=== PATIENT | male | born 1970 | race Caucasian/White ===

== ENCOUNTER → 2019-01-27 | Outpatient (CLI) | payer MEDICARE, BC ==
[~2019-01-27] MED LIST: CATA0.3T PO; CHOL50003 PO; CRES10TA PO; GLIP10TA PO; HM V5000 PO; INSUH10VL SQ; LEVE1INJ5 SQ; METO1TAB87 PO; MIDO5TA PO; RENA1TAB3 PO; SERT25TA85 PO
== END ==
LOC: M LAB 11:33
PROVIDERS: ATTEND Internal Medicine Nephrology
DX: D64.9 Anemia, unspecified (principal)

== ENCOUNTER 2019-01-29 08:51 | Outpatient (CLI) | payer MEDICARE, BC ==
[~2019-01-29] VITALS: Ht 190.5 cm; Wt 119.0 kg
[2019-01-29 09:05] VITALS: BP 168/82
[2019-01-29] MEDS ORDERED: ACETAMINOPHEN 325 MG TAB PO ONE (10:00)
[2019-01-29] MEDS ORDERED: SERT25TA85 PO (10:20)
[2019-01-29] MEDS ORDERED: MIDO5TA PO (10:20)
[2019-01-29] MEDS ORDERED: HM V5000 PO (10:20)
[2019-01-29] MEDS ORDERED: CHOL50003 PO (10:20)
[2019-01-29] MEDS ORDERED: METO1TAB87 PO (10:20)
[2019-01-29] MEDS ORDERED: LEVE1INJ5 SQ (10:20)
[2019-01-29] MEDS ORDERED: CATA0.3T PO (10:20)
[2019-01-29] MEDS ORDERED: INSUH10VL SQ (10:20)
[2019-01-29] MEDS ORDERED: CRES10TA PO (10:20)
[2019-01-29] MEDS ORDERED: RENA1TAB3 PO (10:20)
[2019-01-29] MEDS ORDERED: GLIP10TA PO (10:20)
== END 2019-01-29 12:55 | disposition home or self-care (01) ==
LOC: M INFU 08:51
PROVIDERS: ATTEND Internal Medicine Nephrology
DX: N18.9 Chronic kidney disease, unspecified (principal); D63.1 Anemia in chronic kidney disease; Z88.0 Allergy status to penicillin; Z88.1 Allergy status to other antibiotic agents
CPT/HCPCS: 36430; P9016

== ENCOUNTER → 2019-02-05 | Outpatient (REF) | payer MEDICARE, BC | LOC: M LAB REF 12:47 | PROVIDERS: ATTEND Internal Medicine Nephrology | DX: D50.9 Iron deficiency anemia, unspecified (principal); N18.6 End stage renal disease; Z79.4 Long term (current) use of insulin; Z79.899 Other long term (current) drug therapy ==

== ENCOUNTER 2019-05-23 17:48 | Inpatient (IN) | payer MEDICARE, BC ==
[~2019-05-23] VITALS: Ht 190.5 cm; Wt 122.9 kg
[~2019-05-23 17:48] MED LIST changes: +LEVE1INJ5 SC; -LEVE1INJ5 SQ
[2019-05-23] MEDS ORDERED: SERT25TA88 (18:00)
[2019-05-23] MEDS ORDERED: PANT40TA3 (18:00)
[2019-05-23] MEDS ORDERED: LOSA100T50 (18:00)
[2019-05-23] MEDS ORDERED: CRES10TA (18:00)
[2019-05-23] MEDS ORDERED: VELP5CHW PO ×2 (18:00→22:02)
[2019-05-23] MEDS ORDERED: VANC1PLA6 IV (20:42)
[2019-05-23] MEDS ORDERED: CEFEPIME HCL 1 GM in D5W MINI-BAG PLUS 50 ML IV ONE (21:00)
[2019-05-23] MEDS ORDERED: HumaLOG INSULIN (NovoLOG) PER UNIT SC SCH (21:00)
[2019-05-23] MEDS ORDERED: LEVEMIR (INSULIN DETEMIR) 1 UNITS/0.01ML SC SCH (21:00)
[2019-05-23 21:18] LABS: BASO % 0.3 % (0.0-1.0); EOS # 0.2 10^3/uL (0.0-0.5); EOS % 1.8 % (0.0-3.0); HEMATOCRIT 31.5 % (42.0-52.0); HEMOGLOBIN 10.7 g/dl (13.5-17.5); LYMPH # 2.6 10^3/uL (1.5-5.0); LYMPH % 21.1 % (24.0-44.0); MEAN CORPUSCULAR HEMOGLOBIN 31.8 pg (27.0-33.0); MEAN CORPUSCULAR VOLUME 93.5 fl (80.0-96.0); MONO # 1.2 10^3/uL (0.0-0.8); MONO % 9.8 % (0.0-5.0); NEUTROPHILS # 8.1 10^3/uL (1.5-8.5); NEUTROPHILS % 66.5 % (36.0-66.0); PLATELET COUNT, AUTOMATED 265 10^3/uL (150-450); RED BLOOD COUNT 3.37 10^6/uL (4.30-6.10); WHITE BLOOD COUNT 12.2 10^3/uL (4.0-10.0)
[2019-05-23 21:51] LABS: ALBUMIN 2.4 GM/DL (3.2-5.2); ALT/SGPT 16 U/L (12-78); BILIRUBIN,DIRECT 0.1 MG/DL (0.0-0.2); BILIRUBIN,TOTAL 0.3 MG/DL (0.2-1.0); BLOOD UREA NITROGEN 17 MG/DL (7-18); CALCIUM LEVEL 8.5 MG/DL (8.5-10.1); CARBON DIOXIDE LEVEL 34 MEQ/L (21-32); CHLORIDE LEVEL 100 MEQ/L (98-107); CREATININE FOR GFR 3.79 MG/DL (0.70-1.30); GLOMERULAR FILTRATION RATE 18.2 (>60); GLUCOSE, FASTING 135 MG/DL (70-100); POTASSIUM SERUM 3.8 MEQ/L (3.5-5.1); SODIUM LEVEL 140 MEQ/L (136-145); TOTAL PROTEIN 6.9 GM/DL (6.4-8.2)
[2019-05-23] MEDS ORDERED: CLON-412 PO (22:02)
[2019-05-23] MEDS ORDERED: LOSA100T50 PO (22:02)
[2019-05-23] MEDS ORDERED: VITA-172 PO (22:02)
[2019-05-23] MEDS ORDERED: PANT-23 PO (22:02)
[2019-05-23] MEDS ORDERED: INSUH10VL SC (22:02)
[2019-05-23] MEDS ORDERED: RENATAB5 PO (22:02)
--- NOTE | 2019-05-23 22:22 | HPEPDOC ---
[facility] Medical History & Physical Date of Admission May 23, 2019 Date of Service: May 23, 2019 Primary Care Physician: A Other Provider PCP Supa Floyd MD Attending Physician: ZORAIDA ASTORGA MD History and Physical TIME OF SERVICE: 9:30 PM CHIEF COMPLAINT: Sent from dialysis clinic History is obtained from the patient and his mother; his director of pediatric rehabilitation is at the bedside. HISTORY OF PRESENT ILLNESS: This is a 43 old man who was sent from his dialysis clinic for evaluation of left or finger discoloration. According to the patient, he developed a blister that was white at the left fourth finger. He didn't think much about it and started picking at it, but it got worse; about 1 month ago, the tip of the fourth finger turned black; he also developed redness and swelling of the left hand and left lower arm. He admits to having a bit of pain which he manages with Tylenol. He was started on vancomycin and received doses on Tuesday, Tuesday, and on Tuesday prior to arrival in the ED. Today his dialysis center sent him to the ED. He denies having fevers, denies chills, denies nausea, and denies vomiting. REVIEW OF SYSTEMS: 12 point review of systems negative except as listed in HPI PAST MEDICAL/ SURGICAL HISTORY: ESRD on dialysis Tuesday, Tuesday and Tuesday via AV fistula at the left wrist Hypertension. Type 2 diabetes SOCIAL HISTORY: Doesn't smoke. Doesn't drink alcohol FAMILY HISTORY: ALS. Smoke. Hypertension. Stroke/WI/vasculopathy ALLERGIES: Please see below. HOME MEDICATIONS: Please see below. PHYSICAL EXAMINATION: VITAL SIGNS: Please see below. GENERAL APPEARANCE: Well-nourished, well-developed, not in apparent distress, does not appear toxic HEENT: Normocephalic, atraumatic, mucous members moist and pink CARDIOVASCULAR: Regular rate and rhythm, no murmurs, rubs or gallops, AV fistula left wrist has a palpable thrill LUNGS: Clear to auscultation bilaterally on room air ABDOMEN: Soft and nontender on palpation MUSCULOSKELETAL: Range of motion intact in all 4 extremities INTEGUMENT: The lower aspect of the fourth finger on the left hand is completely black firm and necrotic in appearance; the rest of the finger is red and swollen. The redness and swelling extends to the dorsal and palmar aspect of his left hand but not up to the lower arm. NEUROLOGICAL: Cranial nerves II-12 except auditory intact./Patient is using director of pediatric rehabilitation to communicate PSYCHIATRIC: Alert and oriented, able to understand and follow commands LABORATORY DATA: See below. IMAGING: X-ray of the left hand shows necrosis of the fourth distal phalange on the left hand, the final report is pending MICROBIOLOGY: Please see below. ASSESSMENT: Mr. Lucia is a 43 male with a past medical history of ESRD, hypertension, and diabetes who will be admitted for management of osteomyelitis affecting the left fourth distal phalanx. PLAN: 1. Osteomyelitis /possible gangrene affecting the left affecting the left fourth distal phalanx. Predisposing factors include diabetes, fungal nail infection and blister that was previously present at the same finger The WBC count is elevated due to the infection. He received cefepime in the ED and 3 doses of vancomycin the last week Plan: Admit to PCU/follow-up blood cultures, ESR and CRP, and report of x-ray of the left hand/ nothing by mouth/general surgery consult to determine if needs amputation/c/w Vancomyin and Cefepime / the day time team can consider ID consult 2 Hypertensive urgency Plan: Resume home meds/add labetalol 5 mg every 4 hours when necessary along with hydralazine 10 mg every 8 hours scheduled / follow-up troponin, and EKG 3 ESRD. Plan: Is/ Os & daily weights /nephrology consult 4. Type 2 diabetes Plan: / f/u accuchecks & A1C / hypoglycemia protocol / sliding scale insulin / hold oral anti-glycemics / decrease Levemir from 32 units twice a day to 15 units twice a day pending surgical evaluation 5.Obesity BMI 33.7kg Plan: can f/u w PCP for national opelint analyst consult & STOP BANG questionnaire / recommend cardiovascular exercise for 40 min 4-5 days a week DVT prophylaxis with SCDs pending surgical evaluation. Disposition pending clinical course Vital Signs Vital Signs Date Time Temp Pulse Resp B/P (MAP) Pulse Ox O2 Delivery O2 Flow Rate FiO2 05/23/19 20:00 18 198/95 (129) 100 Room Air 05/23/19 17:48 98.8 80 Laboratory Data Labs 24H Laboratory Tests 2 05/23/19 20:59: Immature Granulocyte % (Auto) 0.5, White Blood Count 12.2H, Red Blood Count 3.37L, Hemoglobin 10.7L, Hematocrit 31.5L, Mean Corpuscular Volume 93.5, Mean Corpuscular Hemoglobin 31.8, Mean Corpuscular Hemoglobin Concent 34.0, Red Cell Distribution Width 11.9, Platelet Count 265, Neutrophils (%) (Auto) 66.5H, Lymphocytes (%) (Auto) 21.1L, Monocytes (%) (Auto) 9.8H, Eosinophils (%) (Auto) 1.8, Basophils (%) (Auto) 0.3, Neutrophils # (Auto) 8.1, Lymphocytes # (Auto) 2.6, Monocytes # (Auto) 1.2H, Eosinophils # (Auto) 0.2, Basophils # (Auto) 0.0, Nucleated Red Blood Cells % (auto) 0.0, Anion Gap 6L, Glomerular Filtration Rate 18.2L, Lactic Acid Level 0.9, Calcium Level 8.5, Aspartate Amino Transf (AST/SGOT) 11, Alanine Aminotransferase (ALT/SGPT) 16, Alkaline Phosphatase 101, Total Bilirubin 0.3, Direct Bilirubin 0.1, Total Protein 6.9, Albumin 2.4L, Albumin/Globulin Ratio 0.53L CBC/BMP Laboratory Tests 05/23/19 20:59 Red Blood Count 3.37 L, Mean Corpuscular Volume 93.5, Mean Corpuscular Hemoglobin 31.8, Mean Corpuscular Hemoglobin Concent 34.0, Red Cell Distribution Width 11.9, Neutrophils (%) (Auto) 66.5 H, Lymphocytes (%) (Auto) 21.1 L, Monocytes (%) (Auto) 9.8 H, Eosinophils (%) (Auto) 1.8, Basophils (%) (Auto) 0.3, Neutrophils # (Auto) 8.1, Lymphocytes # (Auto) 2.6, Monocytes # (Auto) 1.2 H, Eosinophils # (Auto) 0.2, Basophils # (Auto) 0.0 Microbiology Microbiology 05/23/19 Blood Culture, Received Pending 05/23/19 Blood Culture, Received Pending Home Medications Scheduled Cholecalciferol (Vitamin D3) (Vitamin D3) 5,000 Unit Capsule, 5,000 UNIT PO 2XW TUESDAY AND TUESDAY MORNING Clonidine HCl (Clonidine HCl) 0.1 Mg Tablet, 0.3 MG PO DAILY Cyanocobalamin (Vitamin B-12) (Vitamin B-12) 500 Mcg Tablet, 500 MCG PO DAILY Folic Acid/Vit B Complex and C (Natasha-Rajiv Tablet) 0.8 Mg Tablet, 1 TAB PO DAILY Glipizide (Glipizide) 10 Mg Tablet, 20 MG PO BID Insulin Detemir (Levemir Flextouch) 100 Unit/1 Ml Insuln.pen, 32 UNITS SC BID Insulin Human Lispro (Novolog) 100 Unit/1 Ml Vial, 1 DOSE SC AC 26 UNITS + SLIDING SCALE Losartan Potassium (Losartan Potassium) 100 Mg Tablet, 100 MG PO DAILY Metoprolol Tartrate (Metoprolol Tartrate) 25 Mg Tablet, 25 MG PO BID Pantoprazole Sodium (Pantoprazole Sodium) 40 Mg Tablet.dr, 40 MG PO DAILY Rosuvastatin Calcium (Crestor) 10 Mg Tablet, 10 MG PO QPM TAKES AT DINNERTIME Sertraline Hcl (Sertraline HCl) 25 Mg Tablet, 25 MG PO DAILY Sucroferric Oxyhydroxide (Velphoro) 500 Mg Tab.chew, 500 MG PO AC Vancomycin/0.9 % Sod Chloride (Vanco 1 Gram/250 ml-0.9% NaCl) 1 Gm/250 Ml Plast..bag, 1 GM IV HD 05/18, 05/21, 05/23 Allergies Coded Allergies: Penicillins (Verified Allergy, Unknown, 01/29/19) bacitracin (Verified Allergy, Unknown, 01/29/19) neomycin (Verified Allergy, Unknown, 01/29/19) polymyxin B (Verified Allergy, Unknown, 01/29/19) A-FIB/CHADSVASC A-FIB History Current/History of A-Fib/PAF?: No Current PO Anticoag Therapy: ZORAIDA Driver MD May 23, 2019 22:22
[2019-05-24] VITALS (8 sets, daily range): BP systolic 154–220; BP diastolic 75–102
[2019-05-24] MEDS: LABETALOL HCL 100 MG/20 ML VIAL IV PRN ×4 (00:57→16:58)
[2019-05-24] MEDS: METOPROLOL TART 25 MG TABLET PO SCH ×3 (00:57→21:24)
[2019-05-24] MEDS: **hydrALAZINE** 10 MG TAB PO SCH ×4 (00:58→21:24)
[2019-05-24] MEDS ORDERED: D5W 1,000 ML IV SCH (01:00)
[2019-05-24] MEDS ORDERED: DEXTROSE 50% 50 ML SYRINGE IV PRN ×2 (01:00→19:45)
[2019-05-24 01:07] LABS: TROPONIN I < 0.02 NG/ML (< 0.10)
[2019-05-24 01:49] LABS: ERYTHROCYTE SEDIMENTATION RATE 128 mm/hr (0-15)
--- NOTE | 2019-05-24 05:15 | PHACANCOPD ---
PHARMACY VANCOMYCIN DOSING Pt Demographics Demographics Patient Age:49 , Weight:129.540 , Gender: male Adjusted Body Weight Date: 05/24/19, Adjusted Body Weight: [102.5] Kg Events Past 24 Hours Events Past 24 Hours: YES: Dialysis, Fever Vancomycin Vancomycin indication: SSTI/L.HAND INFECTION/OSTEO Vancomycin Target Ranges: 15-20 mcg/ml Vancomycin Load Y/N: No Load Dose Date Time Vancomycin Load Dose: Date: Time: Vancomycin Dose Date: 05/24/19. Current Vancomycin Dose: [1GM HD ON ] Intermittent Dosing?: No Labs Labs Laboratory Tests 05/23/19 20:59 Red Blood Count 3.37 L, Mean Corpuscular Volume 93.5, Mean Corpuscular Hemoglobin 31.8, Mean Corpuscular Hemoglobin Concent 34.0, Red Cell Distribution Width 11.9, Neutrophils (%) (Auto) 66.5 H, Lymphocytes (%) (Auto) 21.1 L, Monocytes (%) (Auto) 9.8 H, Eosinophils (%) (Auto) 1.8, Basophils (%) (Auto) 0.3, Neutrophils # (Auto) 8.1, Lymphocytes # (Auto) 2.6, Monocytes # (Auto) 1.2 H, Eosinophils # (Auto) 0.2, Basophils # (Auto) 0.0 Micro Microbiology 05/23/19 Blood Culture, Received Pending 05/23/19 Blood Culture, Received Pending Creatinine Clearance Date:05/24/19. Creatinine Clearance: [34.6].CALCULATED Assessment and Plan Maintaining Current Dose?: Yes Reason for dose change: No Dose Change Pharmacist Note Pharmacist Note Date: 05/24/19. Pharmacist note:Patient admitted following dialysis last evening.Has necrotic lefthand/SSTI/osteomyelitis.SCR=3.79,CRCL=34.6,75",19.54 KG(txc=741.5 KG)Allergies: PCN,Neosporin.Rx with Cefepime Q12H and Vancomycin administered post dialysis on mon-Wed-Fri. Random level is ordered for this morning-Will contnue to follow [facility] May 24, 2019 05:15
[2019-05-24 06:09] LABS: HEMATOCRIT 31.4 % (42.0-52.0); HEMOGLOBIN 10.4 g/dl (13.5-17.5); MEAN CORPUSCULAR HEMOGLOBIN 31.3 pg (27.0-33.0); MEAN CORPUSCULAR HGB CONC 33.1 g/dl (32.0-36.5); MEAN CORPUSCULAR VOLUME 94.6 fl (80.0-96.0); PLATELET COUNT, AUTOMATED 273 10^3/uL (150-450); RED BLOOD COUNT 3.32 10^6/uL (4.30-6.10); WHITE BLOOD COUNT 12.9 10^3/uL (4.0-10.0)
[2019-05-24 06:29] LABS: CALCIUM LEVEL 8.8 MG/DL (8.5-10.1); CREATININE FOR GFR 4.53 MG/DL (0.70-1.30); GLOMERULAR FILTRATION RATE 14.9 (>60); POTASSIUM SERUM 3.8 MEQ/L (3.5-5.1); VANCOMYCIN RANDOM 12.7 UG/ML
--- NOTE | 2019-05-24 07:07 | PHACANCOPD ---
PHARMACY VANCOMYCIN DOSING Pt Demographics Demographics Patient Age:49 , Weight:122.400 , Gender: male Adjusted Body Weight Date: 05/24/19, Adjusted Body Weight: [102.5] Kg Events Past 24 Hours Events Past 24 Hours: YES: Dialysis; NO: Diuretic Therapy, Change in CrCl, Fever, Elevation in WBC, Pending Diagnostics, Pending Procedures, Other Vancomycin Vancomycin indication: SSTI/L.HAND INFECTION/OSTEO Vancomycin Target Ranges: 15-20 mcg/ml Vancomycin Load Y/N: No Load Dose Date Time Vancomycin Load Dose: Date: Time: Vancomycin Dose Date: 05/24/19. Current Vancomycin Dose: [1GM HD ON ] Intermittent Dosing?: No Labs Labs Vital Signs Label Value Date Time Patient Temperature 98.0 degrees F 05/24/19119 Temperature Source Temporal 05/24/19119 Patient Temperature 98.8 degrees F 05/23/191747 Temperature Source Temporal 05/23/191747 Item Value Date Time White Blood Count 12.9 10^3/uL H 05/24/19550 White Blood Count 12.2 10^3/uL H 05/23/192058 Creatinine 4.53 MG/DL H 05/24/19550 Creatinine 3.79 MG/DL H 05/23/192058 Random Vancomycin Level 12.7 UG/ML 05/24/19550 Micro Microbiology 05/23/19 Blood Culture, Received Pending 05/23/19 Blood Culture, Received Pending Creatinine Clearance Date:05/24/19. Creatinine Clearance: [34.6].CALCULATED Assessment and Plan Maintaining Current Dose?: Yes Reason for dose change: Trough too low Pharmacist Note Pharmacist Note 05/24/19: Random this AM resulted at 12.7mcg/ml. I have ordered an additional 500mg dose for today to bring the patient into therapeutic range. We will continue to monitor and adjust dose as needed. Date: 05/24/19. Pharmacist note:Patient admitted following dialysis last evening.Has necrotic lefthand/SSTI/osteomyelitis.SCR=3.79,CRCL=34.6,75",19.54 KG(pjc=216.5 KG)Allergies: PCN,Neosporin.Rx with Cefepime Q12H and Vancomycin administered post dialysis on mon-Wed-Fri. Random level is ordered for this morning-Will contnue to follow [facility] May 24, 2019 07:07
[2019-05-24] MEDS ORDERED: HumaLOG INSULIN (NovoLOG) PER UNIT SC SCH (07:30)
[2019-05-24] MEDS: SUCROFERRIC OXYHYDROXIDE 500MG CHEW TAB (VELPHORO) PO SCH ×3 (07:30→17:24)
--- NOTE | 2019-05-24 07:43 | REP ---
Clinical: Cellulitis. Technique: AP, lateral, bilateral oblique views of the left hand. Findings: Soft-tissue swelling with subcutaneous emphysema and fracture with subtle osseous irregularities involves the fourth digit distal phalanx. Given the patient's history and physical findings, osteomyelitis is of concern. Remainder examination is without further fracture or dislocation. Peripheral vascular disease noted. Impression: Osseous and soft tissue changes involving the fourth digit suggesting osteomyelitis. Electronically Signed by Duane Zuluaga MD 05/24/2019 07:35 A
[2019-05-24 08:08] LABS: HEMOGLOBIN A1c 7.8 %
[2019-05-24] MEDS: cloNIDine 0.1 MG TAB PO SCH (08:11)
[2019-05-24] MEDS: PANTOPRAZOLE 40MG TAB (PROTONIX) PO SCH (08:12)
[2019-05-24] MEDS: SERTRALINE HCL 25 MG TABLET PO SCH (08:12)
[2019-05-24] MEDS: CYANOCOBALAMIN 500 MCG TAB PO SCH (08:12)
[2019-05-24] MEDS: LOSARTAN 50 MG TAB PO SCH (08:12)
[2019-05-24] MEDS: CEFEPIME HCL 1 GM in D5W MINI-BAG PLUS 50 ML IV SCH ×2 (08:13→21:25)
[2019-05-24] MEDS ORDERED: VANCOMYCIN HCL 500 MG in D5W MINI-BAG PLUS 100 ML IV ONE (09:00)
[2019-05-24] MEDS ORDERED: LEVEMIR (INSULIN DETEMIR) 1 UNITS/0.01ML SC SCH (09:00)
[2019-05-24] MEDS: amLODIPine 5 MG TAB PO SCH (12:46)
[2019-05-24] MEDS: ACETAMINOPHEN TAB 650MG DOSE (2X325MG) PO PRN (12:47)
[2019-05-24] MEDS: HumaLOG INSULIN (NovoLOG) PER UNIT SC SCH ×3 (12:55→21:00)
[2019-05-24] MEDS: **VANCO AFTER HD** MISC XX SCH (15:48)
[2019-05-24] MEDS ORDERED: GLUCAGON FOR INJ 1 MG VIAL (J1610) SC PRN (19:45)
[2019-05-24] MEDS ORDERED: GLUCOSE 4 GM CHEW TABLET PO PRN (19:45)
[2019-05-24] MEDS ORDERED: DARBEPOETIN 100 MCG/0.5 ML *DIALYSIS* SYRINGE (J0882) IV SCH (21:15)
--- NOTE | 2019-05-24 21:42 | CR ---
DATE OF CONSULTATION: 05/24/2019 REQUESTING PHYSICIAN: Dr. Didier Pace CONSULTING PHYSICIAN: Dr. Nitish Wright REASON FOR CONSULTATION: Management of end-stage renal disease, hemodialysis. CHIEF COMPLAINT: The patient was sent from dialysis clinic because of worsening pain and infection of left hand ring finger. Note, history was obtained with the help of an certified court interpreter. Patient is congenitally deaf and mute. His mother was also present at the bedside. HISTORY OF THE PRESENT ILLNESS: Miquel Morris is a 49-year-old male with a past medical history of end-stage renal disease, on hemodialysis every Tuesday, Tuesday, Tuesday, history of hypertension, diabetes mellitus type 2. He has a functioning left forearm arteriovenous (AV) fistula, which is used for dialysis. He has been having persistently worsening pain and infection, almost 3 months, in the left hand index finger. It got worse for the last 1 week. He started getting IV vancomycin with each dialysis. He has received 1 week of vancomycin. However, despite getting IV vancomycin, his left hand index finger did not get better. There was worsening erythema and tenderness, which was spreading to the left arm as well. The patient was sent to the emergency room for further evaluation. He was admitted under the hospitalist service. He got the x-ray of the left hand done, which showed osteomyelitis of the left ring finger. Orthopedic surgery has already been called on board, and the patient is pending evaluation by hand surgeon. Nephrology service was called for further help in the management of end-stage renal disease requiring hemodialysis. Note, the patient also reports that he was going to see a vascular surgeon in [place] for evaluation of the AV fistula to see if there was any association of the AV fistula with the index finger infection and possible ischemia. PAST MEDICAL HISTORY: End-stage renal disease, on hemodialysis every Tuesday, Tuesday, Tuesday. Hypertension. Diabetes mellitus, type 2. PAST SURGICAL HISTORY: Status post left forearm AV fistula placement. ALLERGIES: The patient is allergic to PENICILLINS, BACITRACIN, NEOMYCIN, and POLYMYXIN. FAMILY HISTORY: No significant family history of end-stage renal disease requiring hemodialysis. SOCIAL HISTORY: The patient lives at home. He denies any smoking, illicit drug abuse, or alcohol abuse. REVIEW OF SYSTEMS: CONSTITUTIONAL: He denies any fevers or chills. EYES: He denies any blurred vision, double vision. ENT: He denies any dysphagia, odynophagia. CARDIOVASCULAR: He denies any chest pain or palpitations. RESPIRATORY: He denies any cough or phlegm. GASTROINTESTINAL (GI): He denies any nausea or vomiting. GENITOURINARY: He denies any dysuria or hematuria. MUSCULOSKELETAL: He reports pain and erythema of the left index finger and pain in the palm as well. CENTRAL NERVOUS SYSTEM: He denies any strokes or seizures. SKIN: He denies any rashes or ulcers apart from erythema in the left index finger. PSYCHIATRIC: He denies any depression or anxiety. HEMATOLOGICAL/ONCOLOGICAL: He denies any easy bleeding or bruising. All other review of systems is negative. PHYSICAL EXAMINATION: GENERAL: The patient is awake, alert, oriented times three, laying in bed. VITAL SIGNS: Temperature is 97.5 degrees Fahrenheit, blood pressure is 170/92, pulse is 72, respiratory rate of 16, saturating 97% on room air. HEAD AND NECK EXAM: Extraocular muscles intact. Pupils equally round and reactive to light. Mucous membranes are moist. Neck is supple. There is no jugular venous distention (JVD). CARDIOVASCULAR: S1, S2. Regular rate. No edema of the bilateral lower extremities. RESPIRATORY: Chest is clear to auscultation bilaterally. Bilateral equal air entry. No rales or rhonchi. ABDOMEN: Soft. Positive bowel sounds. Nontender, no organomegaly. MUSCULOSKELETAL: Left index finger has gangrene of the distal phalanx, and he has erythema that extends all the way to the left palm and tenderness. CENTRAL NERVOUS SYSTEM: No focal deficit apart from congenitally deaf and mute. He follows commands and moves all extremities. LAB REVIEW: CBC showed a WBC of 12.9, hemoglobin 10.4, platelets are 273. BMP showed sodium 139, potassium 3.8, chloride 100, bicarbonate 34, BUN 20, creatinine is 4.5, calcium 8.8, magnesium is 2. IMAGING: X-ray of the hand was done yesterday; it showed soft tissue and osseous changes involving the fourth digit suggesting osteomyelitis. CURRENT INPATIENT MEDICATIONS: The patient's medications were all reviewed by me. He is currently on cefepime 1 gram IV every 24 hours and vancomycin 1 gram IV every hemodialysis. I have started him on amlodipine 5 mg daily. He continues to be on clonidine 0.3 mg by mouth daily, vitamin B12 500 mcg by mouth daily, hydralazine 10 mg by mouth every 8 hours, insulin sliding scale. He has been started on labetalol 5 mg IV every 4 hours as needed systolic blood pressure more than 180, losartan 100 mg by mouth daily, metoprolol 25 mg by mouth twice a day, Protonix 40 mg by mouth daily, Zoloft 25 mg by mouth daily, Velphoro 500 mg by mouth with meals. ASSESSMENT: A 49-year-old male with a history of end-stage renal disease on hemodialysis, hypertension, diabetes mellitus type 2, admitted at this time with osteomyelitis and gangrene of the left ring finger. PLAN: 1. End-stage renal disease, on hemodialysis. Patient's regular dialysis days are Tuesday, Tuesday, Tuesday. He will be dialyzed tomorrow morning as per his regular schedule. 2. Osteomyelitis and gangrene of the left ring finger. The patient has a left forearm AV fistula as well. Although hand surgery has already been involved for evaluation and possible amputation if needed, I am going to involve vascular surgery as well to see if the left forearm AV fistula is causing ischemia in the left hand. The patient might need angiogram of the left AV fistula as well. Decision is up to vascular surgery. 3. Hypertension with end-stage renal disease. Blood pressure is uncontrolled. The patient has already been started on as needed labetalol, and he is also on hydralazine. I have added amlodipine 5 mg daily. Continue current dose of clonidine and metoprolol. Further optimization of the fluid status would also help improve the blood pressure. 4. Diabetes mellitus type 2. Continue insulin sliding scale. Levemir dose is being decreased because the patient is nothing by mouth for possible surgery. 5. Chronic kidney disease mineral bone disease. Continue current dose of Velphoro 500 mg by mouth three times a day with meals. 6. Anemia in end-stage renal disease. Hemoglobin is 10.4. I will start the patient on Aranesp with dialysis tomorrow morning. Thank you for involving me in the care of this patient. I shall be happy to follow the patient along with you tomorrow morning.
--- NOTE | 2019-05-24 23:48 | CR.PDOC ---
Subjective General Date/Time Seen The patient was seen on 05/24/19 at 19:32. Subject Chief Complaint/History The patient is a 49-year-old male admitted with a reason for visit of Hand Osteomyelitis,Left. Patient was admitted with left fourth finger distal gangrene of the tip and discoloration of the remainder of the finger with cellulitis at the base of the finger in the palm of the hand. Patient states that he initially developed a blister on that finger sometime in January and has progressively worsened to the point at which she has dry gangrene at the tip at this time. Patient acknowledges pain in the proximal left fourth finger and hand. Patient acknowledges having difficulty closing his hand. Patient was started on vancomycin at hemodialysis.Patient denies rest pain, TIAs, amaurosis fugax, paralysis or paresis of the extremity, nausea, fevers, chills, vomiting, chest pain, or shortness of breath. Current Medications Current Medications Current Medications Medications (Trade) Dose Ordered Sig/Jacquelyn Route PRN Reason Start Time Stop Time Status Last Admin Dose Admin Acetaminophen (Tylenol Tab) 650 mg Q6HP PRN PO PAIN / FEVER 05/24/19 12:30 05/24/19 12:47 Amlodipine Besylate (Norvasc) 5 mg DAILY PO 05/24/19 09:00 05/24/19 12:46 Cefepime HCl 1 gm/ Dextrose 50 ml @ 100 mls/hr Q12H IV 05/24/19 09:00 05/24/19 21:25 Clonidine HCl (Catapres) 0.3 mg DAILY PO 05/24/19 09:00 05/24/19 08:11 Cyanocobalamin (Vitamin B12) 500 mcg DAILY PO 05/24/19 09:00 05/24/19 08:12 Darbepoetin Ck (Aranesp (Dialysis Use)) 200 mcg HD IV 05/24/19 21:15 Dextrose (Dextrose 50%) 25 ml ASDIRECTED PRN IV SEE LABEL COMMENTS 05/24/19 01:00 Dextrose (Dextrose 50%) 25 ml ASDIRECTED PRN IV SEE LABEL COMMENTS 05/24/19 19:45 Dextrose/Water 1,000 ml @ 50 mls/hr Q20H IV 05/24/19 01:00 05/24/19 16:09 DC 05/24/19 02:41 Glucagon (Glucagon) 1 mg ASDIRECTED PRN SC SEE LABEL COMMENTS 05/24/19 19:45 Glucose (Glucose) 16 GM ASDIRECTED PRN PO SEE LABEL COMMENTS 05/24/19 19:45 Home Med (Med Rec Complete!) ASDIRECTED XX 05/23/19 22:15 05/23/19 22:15 DC Hydralazine HCl (Apresoline) 10 mg Q8H PO 05/23/19 22:00 05/24/19 21:24 Insulin Detemir (Levemir Insulin) 15 units BID SC 05/24/19 09:00 05/24/19 12:30 DC Insulin Detemir (Levemir Insulin) 32 units BID SC 05/23/19 21:00 05/24/19 02:10 DC Insulin Human Lispro (HumaLOG INSULIN) SEE PROTOCOL TABLE Q6H OR 05/24/19 12:00 05/24/19 19:39 DC 05/24/19 17:23 Insulin Human Lispro (HumaLOG INSULIN) See Protocol Table AC OR 05/24/19 07:30 05/24/19 12:30 DC Insulin Human Lispro (HumaLOG INSULIN) See Protocol Table AC OR 05/25/19 07:30 Insulin Human Lispro (HumaLOG INSULIN) See Protocol Table QHS OR 05/23/19 21:00 05/24/19 12:30 DC Insulin Human Lispro (HumaLOG INSULIN) [facility] 05/[facility]/19 21:00 Labetalol HCl (Normodyne, Trandate) 5 mg Q4HP PRN IV SBP > 180 05/24/19 00:45 05/24/19 16:58 Losartan Potassium (Cozaar) 100 mg DAILY PO 05/24/19 09:00 05/24/19 08:12 Metoprolol Tartrate (Lopressor) 25 mg BID PO 05/23/19 21:00 05/24/19 21:24 Non-Formulary Medication ( See Comment Field Below ) CHECK TO SEE IF THE PATIENT... DAILY@1600 XX 05/24/19 16:00 Pantoprazole Sodium (Protonix) 40 mg DAILY PO 05/24/19 09:00 05/24/19 08:12 Sertraline HCl (Zoloft) 25 mg DAILY PO 05/24/19 09:00 05/24/19 08:12 Sucroferric Oxyhydroxide (Velphoro) 500 mg AC PO 05/24/19 07:30 05/24/19 17:24 Vancomycin HCl 1000 mg/IV Miscellaneous Supplies 1 each/ Dextrose 270 ml @ 270 mls/hr HD IV 05/24/19 18:00 Allergies Coded Allergies: Penicillins (Verified Allergy, Unknown, 01/29/19) bacitracin (Verified Allergy, Unknown, 01/29/19) neomycin (Verified Allergy, Unknown, 01/29/19) polymyxin B (Verified Allergy, Unknown, 01/29/19) Home Medications Home Medications Scheduled Cholecalciferol (Vitamin D3) (Vitamin D3) 5,000 Unit Capsule, 5,000 UNIT PO 2XW, (Reported) TUESDAY AND TUESDAY MORNING Clonidine HCl (Clonidine HCl) 0.1 Mg Tablet, 0.3 MG PO DAILY, (Reported) Cyanocobalamin (Vitamin B-12) (Vitamin B-12) 500 Mcg Tablet, 500 MCG PO DAILY, (Reported) Folic Acid/Vit B Complex and C (Natasha-Rajiv Tablet) 0.8 Mg Tablet, 1 TAB PO DAILY, (Reported) Glipizide (Glipizide) 10 Mg Tablet, 20 MG PO BID, (Reported) Insulin Detemir (Levemir Flextouch) 100 Unit/1 Ml Insuln.pen, 32 UNITS SC BID, (Reported) Insulin Human Lispro (Novolog) 100 Unit/1 Ml Vial, 1 DOSE SC AC, (Reported) 26 UNITS + SLIDING SCALE Losartan Potassium (Losartan Potassium) 100 Mg Tablet, 100 MG PO DAILY, (Reported) Metoprolol Tartrate (Metoprolol Tartrate) 25 Mg Tablet, 25 MG PO BID, (Reported) Pantoprazole Sodium (Pantoprazole Sodium) 40 Mg Tablet.dr, 40 MG PO DAILY, (Reported) Rosuvastatin Calcium (Crestor) 10 Mg Tablet, 10 MG PO QPM, (Reported) TAKES AT DINNERTIME Sertraline Hcl (Sertraline HCl) 25 Mg Tablet, 25 MG PO DAILY, (Reported) Sucroferric Oxyhydroxide (Velphoro) 500 Mg Tab.chew, 500 MG PO AC, (Reported) Vancomycin/0.9 % Sod Chloride (Vanco 1 Gram/250 ml-0.9% NaCl) 1 Gm/250 Ml Plast..bag, 1 GM IV HD, (Reported) 05/18, 05/21, 05/23 Past Medical History Medical History End-stage renal disease requiring renal replacement therapy therapy via a left radiocephalic autogenous arteriovenous fistula. Diabetes mellitus type 2 Hypertension Surgical History Left autogenous radiocephalic arteriovenous fistula creation Family History Significant Family History: Hypertension Social History * Smoker: Denies Alcohol: Denies Drugs: denies Recent Travel/Sick Contacts: Denies: Recent travel, Recent sick contacts Psychosocial History: No pertinent psych hx Patient denies alcohol or tobacco use. Patient denies any type of drug use. Review of Systems Review of Systems General: Denies: Chills, Night Sweats, Fatigue, Malaise, Normal Appetite Constitutional: Denies: Chills, Fever, Malaise, Night Sweats, Weakness, Fatigue, Weight Loss, Lethargy Eyes: Denies: Pain, Vision change, Conjunctivae inflammation, Eyelid inflammation, Redness HEENT: Reports: Other Symptoms (patient is deaf); Denies: Head Aches, Ear Pain, Dysphagia, Sinus Congestion, Post Nasal Drip, Sore Throat, Epistaxis Skin: Denies: Rash, Lesions, Jaundice, Bruising, Itching, Dry, Breakdown, Nail Changes Pulmonary: Denies: Dyspnea, Cough, Pleuritic Chest Pain, Other Symptoms Cardiovascular: Denies: Chest Pain, Palpitations, Orthopnea, Paroxysmal Noc. Dyspnea, Edema, Lt Headedness Gastrointestinal: Denies: Nausea, Vomiting, Abdominal Pain, Diarrhea, Constipation, Melena, Hematochezia Genitourinary: Denies: Dysuria, Frequency, Incontinence, Hematuria, Retention Hematologic: Denies: Bruising, Bleeding Excessively, Petecchia, Purpura, Enlarged Lymph Nodes ENDOCRINE: Denies: Polydipsia, Polyphagia, Polyuria, Heat Intolerance, Cold Intolerance, Other Endocrine Sx Musculoskeletal: Denies: Neck Pain, Back Pain, Shoulder Pain, Arm Pain, Hand Pain, Leg Pain, Foot Pain, Joint Pain, Muscle Pain, Spasms Neurological: Denies: Weakness, Numbness, Incoordination, Change in speech, Confusion, Seizures Psych: Reports: Mood Normal; Denies: Anxiety, Depression, Memory Issues, Thoughts of Self Harm, Anger, Thoughts of Harming Other VS, I&O, 24H, Fishbone Vital Signs/I&O Vital Signs Date Time Temp Pulse Resp B/P (MAP) Pulse Ox O2 Delivery O2 Flow Rate FiO2 05/24/19 21:24 170/92 05/24/19 21:24 72 05/24/19 20:00 97.5 16 97 05/24/19 00:33 Room Air I&O- Last 24 Hours up to 6 AM 05/24/19 06:00 Intake Total 50 ml Output Total 0 ml Balance 50 ml Laboratory Data 24H LABS Laboratory Tests 2 05/24/19 05:51: Nucleated Red Blood Cells % (auto) 0.0, Anion Gap 5L, Glomerular Filtration Rate 14.9L, Estimated Mean Plasma Glucose 177H, Hemoglobin A1c 7.8, Blood Urea Nitrogen 20H, Creatinine 4.53H, Sodium Level 139, Potassium Level 3.8, Chloride Level 100, Carbon Dioxide Level 34H, Calcium Level 8.8, Magnesium Level 2.0, Random Vancomycin Level 12.7 05/24/19 11:48: Bedside Glucose (Misc Panel) 173H 05/24/19 17:12: Bedside Glucose (Misc Panel) 119H 05/24/19 20:56: Bedside Glucose (Misc Panel) 151H CBC/BMP Laboratory Tests 05/24/19 05:51 Red Blood Count 3.32 L, Mean Corpuscular Volume 94.6, Mean Corpuscular Hemoglobin 31.3, Mean Corpuscular Hemoglobin Concent 33.1, Red Cell Distribution Width 11.9, Calcium Level 8.8 Microbiology Microbiology 05/23/19 Blood Culture - Preliminary, Resulted No growth after 24 hours . All specim... 05/23/19 Blood Culture - Preliminary, Resulted No growth after 24 hours . All specim... Objective Physical Examination General Exam: Positive: Alert, Cooperative, No Acute Distress Eye Exam: Positive: PERRLA, Conjunctiva & lids normal ENT Exam: Positive: Atraumatic, Mucous membr. moist/pink, Pharynx Normal, Tongue Midline Neck Exam: Positive: Supple, +2 carotid pulse wo bruit, Other; Negative: JVD, thyromegaly, Lymphadenopathy Chest Exam: Positive: Clear to auscultation, Normal air movement, Other; Negative: Rales, Rhonchi, Wheezing, Diminished Heart Exam: Positive: Rate Normal, Regular Rhythm; Negative: Tachycardic, Bradycardic, Irregular Rhythm, Gallops, Murmurs, Rubs Telemetry: Positive: No significant arrhythmia, Sinus Abdomen Exam: Positive: Normal bowel sounds, Soft; Negative: BS Hyperactive, BS Hypoactive, Tenderness, Hepatospenomegaly, Mass, Hernia Male Exam: Positive: Normal Genital Exam Extremity Exam: Positive: Normal pulses, Other (left fourth finger shows dry gangrene at the tip with cellulitis in the remainder the left fourth finger and the palm at the base of the remaining 4 fingers. There is also a small discoloration at the tip of the left first finger which measures approximately 1 mm in width by approximately 3 mm in length.); Negative: Clubbing, Cyanosis, Edema, Tenderness, Swelling Skin Exam: Positive: Nl turgor and temperature, Rash Neuro Exam: Positive: Normal Gait Psych Exam: Positive: Mental status NL Assessment/Plan Assessment 49-year-old male with end-stage renal disease and traumatic injury to his left fourth finger who now has cellulitis and dry gangrene of the tip of his left forefinger. The patient has a left radiocephalic autogenous arteriovenous fistula. Plan Patient will undergo a fistulogram with arteriography of the left upper extremity to evaluate for possible atherosclerotic arterial occlusive lesions in his left upper extremity and possible steal syndrome related to his left radiocephalic autogenous arteriovenous fistula. Jarrett Blair MD May 24, 2019 23:48
[2019-05-25 04:00] VITALS: BP 165/71
--- NOTE | 2019-05-25 06:43 | IPNPDOC ---
Text Note Date of Service The patient was seen on 05/24/19. NOTE Subjective: Patient with no new medical complaints this morning. Mother at bedside to provide sign language assistance in communication. Objective: VITAL SIGNS: Please see below. GENERAL: no acute distress, lying comfortably in bed, deaf HEENT: NC/AT, EOMI CARDIOVASCULAR: RRR, +S1S2 LUNGS: CTA B/L ABDOMEN: Soft and nontender on palpation Ext: LUE palpable thrill from AV fistula, fourth distal phalange of left hand necrotic with stranding to wrist; tender to palpation LABORATORY DATA: See below. IMAGING: X-ray of the left hand shows necrosis of the fourth distal phalange on the left hand, the final report is pending MICROBIOLOGY: Please see below. ASSESSMENT: Mr. Lucia is a 43 male with a past medical history of ESRD, hypertension, diabetes admitted for management of osteomyelitis affecting the left fourth distal phalanx. PLAN: #Osteomyelitis / gangrene left fourth distal phalanx. - vascular surg c/s pending - hand surgery c/s pending #Hypertensive urgency - home meds/add labetalol 5 mg every 4 hours when necessary along with hydralazine 10 mg every 8 hours scheduled #ESRD - HD M/W/F - nephrology c/s appreciated #anemia - in the setting of ESRD # diabetes #DVT prophylaxix - mechanical VS,Fishbone, I+O VS, Fishbone, I+O Laboratory Tests 05/23/19 20:59 Red Blood Count 3.37 L, Mean Corpuscular Volume 93.5, Mean Corpuscular Hemoglobin 31.8, Mean Corpuscular Hemoglobin Concent 34.0, Red Cell Distribution Width 11.9, Neutrophils (%) (Auto) 66.5 H, Lymphocytes (%) (Auto) 21.1 L, Monocytes (%) (Auto) 9.8 H, Eosinophils (%) (Auto) 1.8, Basophils (%) (Auto) 0.3, Neutrophils # (Auto) 8.1, Lymphocytes # (Auto) 2.6, Monocytes # (Auto) 1.2 H, Eosinophils # (Auto) 0.2, Basophils # (Auto) 0.0 05/24/19 05:51 Red Blood Count 3.32 L, Mean Corpuscular Volume 94.6, Mean Corpuscular Hemo globin 31.3, Mean Corpuscular Hemoglobin Concent 33.1, Red Cell Distribution Width 11.9, Calcium Level 8.8 Vital Signs Date Time Temp Pulse Resp B/P (MAP) Pulse Ox O2 Delivery O2 Flow Rate FiO2 05/24/19 14:45 160/90 05/24/19 12:46 67 05/24/19 12:00 97.4 18 97 05/24/19 00:33 Room Air I&O- Last 24 Hours up to 6 AM 05/24/19 06:00 Intake Total 50 ml Output Total 0 ml Balance 50 ml JEIMY LOYOLA MD May 24, 2019 14:53
[2019-05-25] MEDS: **hydrALAZINE** 10 MG TAB PO SCH ×3 (06:49→22:28)
[2019-05-25] MEDS ORDERED: CEFEPIME HCL 1 GM in D5W MINI-BAG PLUS 50 ML IV SCH (07:00)
[2019-05-25 08:00] VITALS: BP 152/98
[2019-05-25 08:23] LABS: BASO # 0.1 10^3/uL (0.0-0.2); BASO % 0.4 % (0.0-1.0); EOS # 0.2 10^3/uL (0.0-0.5); EOS % 1.9 % (0.0-3.0); HEMATOCRIT 32.2 % (42.0-52.0); HEMOGLOBIN 10.6 g/dl (13.5-17.5); LYMPH # 2.3 10^3/uL (1.5-5.0); LYMPH % 17.7 % (24.0-44.0); MEAN CORPUSCULAR HEMOGLOBIN 31.5 pg (27.0-33.0); MEAN CORPUSCULAR HGB CONC 32.9 g/dl (32.0-36.5); MEAN CORPUSCULAR VOLUME 95.5 fl (80.0-96.0); MONO % 7.4 % (0.0-5.0); NEUTROPHILS # 9.1 10^3/uL (1.5-8.5); NEUTROPHILS % 71.5 % (36.0-66.0); PLATELET COUNT, AUTOMATED 271 10^3/uL (150-450); RED BLOOD COUNT 3.37 10^6/uL (4.30-6.10); WHITE BLOOD COUNT 12.8 10^3/uL (4.0-10.0)
[2019-05-25 08:37] LABS: INR 1.24; PROTHROMBIN TIME 15.3 SECONDS (11.8-14.0)
[2019-05-25 08:40] LABS: ALBUMIN 2.3 GM/DL (3.2-5.2); BILIRUBIN,TOTAL 0.4 MG/DL (0.2-1.0); CALCIUM LEVEL 8.9 MG/DL (8.5-10.1); CREATININE FOR GFR 6.38 MG/DL (0.70-1.30); TOTAL PROTEIN 7.7 GM/DL (6.4-8.2)
[2019-05-25] MEDS: SUCROFERRIC OXYHYDROXIDE 500MG CHEW TAB (VELPHORO) PO SCH ×3 (08:48→18:38)
[2019-05-25] MEDS: HumaLOG INSULIN (NovoLOG) PER UNIT SC SCH ×4 (08:50→21:00)
[2019-05-25] MEDS: PANTOPRAZOLE 40MG TAB (PROTONIX) PO SCH (08:50)
[2019-05-25] MEDS: LOSARTAN 50 MG TAB PO SCH (08:51)
[2019-05-25 08:52] LABS: VANCOMYCIN RANDOM 15.1 UG/ML
[2019-05-25] MEDS: METOPROLOL TART 25 MG TABLET PO SCH ×2 (08:52→22:28)
[2019-05-25] MEDS: SERTRALINE HCL 25 MG TABLET PO SCH (08:52)
[2019-05-25] MEDS: cloNIDine 0.1 MG TAB PO SCH (08:52)
[2019-05-25] MEDS: CYANOCOBALAMIN 500 MCG TAB PO SCH (08:53)
[2019-05-25] MEDS: amLODIPine 5 MG TAB PO SCH (08:53)
--- NOTE | 2019-05-25 11:03 | IPNPDOC ---
Text Note Date of Service The patient was seen on 05/25/19. NOTE Subjective: Patient seen and examined at bedside. Feels his pain is slightly worse in his left hand. Rod Hanger at bedside to provide sign language assistance in communication. Objective: VITAL SIGNS: Please see below. GENERAL: no acute distress, lying comfortably in bed, deaf HEENT: NC/AT, EOMI CARDIOVASCULAR: RRR, +S1S2, systolic murmur LUNGS: CTA B/L ABDOMEN: Soft and nontender on palpation Ext: LUE palpable thrill from AV fistula, fourth distal phalange of left hand necrotic with streaking extending to middle of palm; tender to palpation LABORATORY DATA: See below. IMAGING: X-ray of the left hand shows necrosis of the fourth distal phalange on the left hand, the final report is pending MICROBIOLOGY: Please see below. ASSESSMENT: Mr. Lucia is a 43 male with a past medical history of ESRD, hypertension, diabetes admitted for management of osteomyelitis affecting the left fourth distal phalanx. PLAN: #Osteomyelitis / gangrene left fourth distal phalanx. - vascular surg c/s appreciated - pending fistulogram today - hand surgery c/s pending #Hypertensive urgency - clonidine, norvasc, cozaar, metoprolol, hydralazine and labetalol prn #ESRD - HD M/W/F - nephrology c/s appreciated #anemia - in the setting of ESRD - worsened - aranesp with HD # diabetes #DVT prophylaxix - mechanical VS,Fishbone, I+O VS, Fishbone, I+O Laboratory Tests 05/25/19 07:55 Red Blood Count 3.37 L, Mean Corpuscular Volume 95.5, Mean Corpuscular Hemoglobin 31.5, Mean Corpuscular Hemoglobin Concent 32.9, Red Cell Distribution Width 12.0, Neutrophils (%) (Auto) 71.5 H, Lymphocytes (%) (Auto) 17.7 L, Monocytes (%) (Auto) 7.4 H, Eosinophils (%) (Auto) 1.9, Basophils (%) (Auto) 0.4, Neutrophils # (Auto) 9.1 H, Lymphocytes # (Auto) 2.3, Monocytes # (Auto) 1.0 H, Eosinophils # (Auto) 0.2, Basophils # (Auto) 0.1, Calcium Level 8.9, Aspartate Amino Transf (AST/SGOT) 9, Alanine Aminotransferase (ALT/SGPT) 14, Alkaline Phosphatase 84, Total Bilirubin 0.4, Total Protein 7.7, Albumin 2.3 L Vital Signs Date Time Temp Pulse Resp B/P (MAP) Pulse Ox O2 Delivery O2 Flow Rate FiO2 05/25/19 08:53 91 152/98 05/25/19 08:00 97.5 20 97 05/24/19 00:33 Room Air I&O- Last 24 Hours up to 6 AM 05/25/19 06:00 Intake Total 50 ml Balance 50 ml JEIMY LOYOLA MD May 25, 2019 11:03
[2019-05-25 11:47] VITALS: BP 148/78
--- NOTE | 2019-05-25 16:57 | IPN ---
DATE: 05/25/2019 SUBJECTIVE: The patient was seen and examined at the bedside today - morning. The patient is afebrile, hemodynamically stable. He still reports moderate amount of pain in the left hand. He was seen by vascular surgery, and they are planning to do a fistulogram of the left arm to rule out possibility of steal syndrome. He is pending procedure by orthopedic surgery. He continues to be on IV antibiotics. OBJECTIVE: Vital signs: Temperature is 97.5 degrees Fahrenheit, blood pressure 148/78, pulse is 58, respiratory rate of 20, saturating 99% on room air. Intake and output. There is no urine output recorded. Weight on the bed scale is 121.5 kg. PHYSICAL EXAMINATION: General: The patient is awake, alert, oriented times three, laying in bed in no apparent distress. Head and neck exam: Extraocular muscles intact. Pupils equally round and reactive to light. Mucous membranes are moist. Neck is supple. There is no jugular venous distention (JVD). Cardiovascular: S1, S2, regular rate. No edema of the bilateral lower extremities. Respiratory: Chest is clear to auscultation bilaterally. Bilateral equal air entry. No rales or rhonchi. Abdomen: Soft, obese, positive bowel sounds. Musculoskeletal: The patient has gangrene of the left ring finger with erythema and tenderness in the whole finger up to the left arm as well into the tendon sheath. Central nervous system (SHELTERED WORKSHOP EXECUTIVE DIRECTOR): No focal deficit. Power is 5/5 in all extremities. The patient is congenitally deaf and mute. LAB REVIEW: CBC showed a WBC of 12.8, hemoglobin is 10.6, platelets are 271. BMP showed sodium 136, potassium 4, chloride 100, bicarbonate 25, BUN 29, creatinine is 6.3, albumin 2.3. CURRENT INPATIENT MEDICATIONS. The patient's medications were all reviewed by me. There is no change in the medications today as compared with yesterday. I decreased the cefepime dose to 1 gram IV daily because of renal failure. ASSESSMENT/PLAN: 1. End-stage renal disease, on hemodialysis. Today is the patient's regular dialysis day. He will be dialyzed today. Ultrafiltration goal will be around 2.5 liters as tolerated by his blood pressure. 2. Osteomyelitis and gangrene of the left ring finger. The patient is going to have a left forearm AV fistula angiogram to rule out possibility of ischemia and orthopedic surgery is on board as well, and they will probably need to do debridement versus amputation of the left ring finger. 3. Hypertension with end-stage renal disease. Blood pressures are significantly better now. Continue current antihypertensive regimen. 4. Diabetes mellitus type 2. His Levemir was decreased because he was nothing by mouth. The rest of the glucose management is as per primary team. The patient is hyperglycemic today - morning. 5. Anemia in end-stage renal disease. Hemoglobin level is 10.6, which is optimal at this time.
[2019-05-25 17:43] VITALS: BP 148/92
[2019-05-25] MEDS ORDERED: HEPARIN 1,000 UNITS/ML 10ML VIAL (FOR RADIOLOGY& DIALYSIS ONLY) IV ONE (18:00)
[2019-05-25] MEDS ORDERED: LIDOCAINE 1% SDV 5 ML VIAL SQ ONE (18:00)
[2019-05-25] MEDS: CEFEPIME HCL 1 GM in D5W MINI-BAG PLUS 50 ML IV SCH (18:39)
[2019-05-25] MEDS: ACETAMINOPHEN TAB 650MG DOSE (2X325MG) PO PRN (18:55)
[2019-05-25 20:00] VITALS: BP 160/78
[2019-05-25] MEDS: VANCOMYCIN HCL 1,000 MG, VIAL MATE ADAPTER 1 EACH in D5W 250 ML IV SCH (22:28)
[2019-05-25] MEDS: **VANCO AFTER HD** MISC XX SCH (22:30)
[2019-05-25 23:59] VITALS: BP 210/108
[2019-05-26] VITALS (8 sets, daily range): BP systolic 128–230; BP diastolic 68–110
[2019-05-26] MEDS: **hydrALAZINE** 10 MG TAB PO SCH ×3 (05:08→22:48)
[2019-05-26 06:17] LABS: HEMATOCRIT 32.7 % (42.0-52.0); HEMOGLOBIN 10.9 g/dl (13.5-17.5); MEAN CORPUSCULAR HEMOGLOBIN 31.4 pg (27.0-33.0); MEAN CORPUSCULAR HGB CONC 33.3 g/dl (32.0-36.5); MEAN CORPUSCULAR VOLUME 94.2 fl (80.0-96.0); PLATELET COUNT, AUTOMATED 270 10^3/uL (150-450); RED BLOOD COUNT 3.47 10^6/uL (4.30-6.10); WHITE BLOOD COUNT 12.1 10^3/uL (4.0-10.0)
[2019-05-26 06:40] LABS: CALCIUM LEVEL 8.8 MG/DL (8.5-10.1); CREATININE FOR GFR 4.79 MG/DL (0.70-1.30); GLOMERULAR FILTRATION RATE 13.9 (>60); POTASSIUM SERUM 4.2 MEQ/L (3.5-5.1); VANCOMYCIN RANDOM 20.7 UG/ML
[2019-05-26] MEDS: SUCROFERRIC OXYHYDROXIDE 500MG CHEW TAB (VELPHORO) PO SCH ×3 (07:30→17:16)
[2019-05-26] MEDS: cloNIDine 0.1 MG TAB PO SCH (08:44)
[2019-05-26] MEDS: ACETAMINOPHEN TAB 650MG DOSE (2X325MG) PO PRN (08:44)
[2019-05-26] MEDS: PANTOPRAZOLE 40MG TAB (PROTONIX) PO SCH (08:44)
[2019-05-26] MEDS: LOSARTAN 50 MG TAB PO SCH (08:45)
[2019-05-26] MEDS: amLODIPine 5 MG TAB PO SCH (08:45)
[2019-05-26] MEDS: CYANOCOBALAMIN 500 MCG TAB PO SCH (08:45)
[2019-05-26] MEDS: SERTRALINE HCL 25 MG TABLET PO SCH (08:46)
[2019-05-26] MEDS: METOPROLOL TART 25 MG TABLET PO SCH ×2 (08:46→21:20)
[2019-05-26] MEDS: HumaLOG INSULIN (NovoLOG) PER UNIT SC SCH ×4 (08:48→20:51)
--- NOTE | 2019-05-26 10:08 | IPNPDOC ---
Text Note Date of Service The patient was seen on 05/26/19. NOTE Subjective: Patient seen and examined at bedside. Still complains of pain in left hand, mostly at left 4th digit. Raisin Washer at bedside to provide sign language assistance in communication. Objective: VITAL SIGNS: Please see below. GENERAL: no acute distress, lying comfortably in bed, deaf HEENT: NC/AT, EOMI CARDIOVASCULAR: RRR, +S1S2, systolic murmur LUNGS: CTA B/L ABDOMEN: Soft and nontender on palpation Ext: LUE palpable thrill from AV fistula, fourth distal phalange of left hand necrotic with streaking extending to middle of palm; tender to palpation LABORATORY DATA: See below. IMAGING: X-ray of the left hand shows necrosis of the fourth distal phalange on the left hand, the final report is pending MICROBIOLOGY: Please see below. ASSESSMENT: 43 yo male with a past medical history of ESRD/HD, hypertension, diabetes admitted for management of osteomyelitis affecting the left fourth distal phalanx. PLAN: #Osteomyelitis / gangrene left fourth distal phalanx. - vascular surg c/s appreciated - pending fistulogram - hand surgery c/s pending - continue IV Abx for now #Hypertensive urgency - still uncontrolled - clonidine increased to 0.2 mg BID; continue norvasc, cozaar, metoprolol, hydralazine and labetalol prn #ESRD - HD M/W/F - nephrology c/s appreciated #anemia - in the setting of ESRD - aranesp started with HD # diabetes #DVT prophylaxix - mechanical VS,Fishbone, I+O VS, Fishbone, I+O Laboratory Tests 05/26/19 05:55 Red Blood Count 3.47 L, Mean Corpuscular Volume 94.2, Mean Corpuscular Hemog lobin 31.4, Mean Corpuscular Hemoglobin Concent 33.3, Red Cell Distribution Width 11.9, Calcium Level 8.8 Vital Signs Date Time Temp Pulse Resp B/P (MAP) Pulse Ox O2 Delivery O2 Flow Rate FiO2 05/26/19 08:46 73 190/98 05/26/19 08:00 97.6 16 98 05/24/19 00:33 Room Air I&O- Last 24 Hours up to 6 AM 05/26/19 06:00 Intake Total 1995 ml Output Total 2500 ml Balance -505 ml LALDIN,JEIMY S. MD May 26, 2019 10:08
[2019-05-26] MEDS: MORPHINE 4 MG/ML 1ML VIAL/SYRINGE (J2270) IV PRN ×2 (11:29→23:44)
--- NOTE | 2019-05-26 15:47 | IPN ---
DATE: 05/26/2019 Mr. Morris is seen this morning on his bedside. He is not able to talk and has an paper folding machine operator present. His mother and children are present in the room at the time of my visit. The patient was admitted with worsening cellulitis of his left hand, which started with gangrenous changes in the left ring finger. He also has arteriovenous (AV) fistula in his left forearm. The patient is dialyzed on Tuesday, Tuesday, and Tuesday schedule, and he was dialyzed yesterday. He is currently being treated with intravenous antibiotics, including cefepime and vancomycin. Blood cultures have been negative so far. PHYSICAL EXAMINATION: Temperature 98 degrees Fahrenheit, heart rate 73 per minute, respiratory rate 18 per minute, blood pressure 190/98 mm of mercury, while earlier this morning his blood pressure was 230/110 mm of mercury. His head is atraumatic and denies any headache. Neck is supple and without jugular venous distention (JVD) or thyroid enlargement. Pupils are equal and reactive to light, and sclerae are anicteric. Heart sounds are regular and lungs clear to auscultation. Abdomen soft and nontender, and bowel sounds are normal. Extremities without any cyanosis or clubbing. Left ring finger is swollen, red, and the tip has ischemic changes. Redness extends to his palm. AV fistula in left forearm is patent. Neurologically, he is awake and at his baseline mentation. He is deaf and mute. Today's labs show WBC count 12.1, hemoglobin of 10.9, and hematocrit 32.7. Platelets 270. Sodium 138, potassium 4.2, CO2 of 29, BUN 16, and creatinine 4.79. PROBLEMS: 1. End-stage renal disease. The patient was dialyzed yesterday, and next dialysis will be scheduled for Tuesday. 2. Cellulitis and gangrenous changes of left ring finger. The patient remains on cefepime and vancomycin. He has been seen by vascular surgery and will need an angiogram of his left upper extremity in order to rule out ischemic changes of his hand due to steal syndrome caused by the AV fistula. At present, his AV fistula is working and has been used for dialysis. 3. Anemia. His anemia is stable, and we will continue to monitor closely. 4. Hypertension. His blood pressure was quite high this morning. We have ordered renin, aldosterone, and catecholamine level. His medications have been adjusted. I have changed his clonidine to 0.2 mg twice a day. All other medications will remain the same for now. We will consider to increase his amlodipine dose if needed or add hydralazine if his blood pressure does not improve. The patient's mother had several questions, which were answered to her satisfaction. Through the paper folding machine operator I also explained the whole situation to the patient, and he was also offered an opportunity to ask questions.
[2019-05-26] MEDS: **VANCO AFTER HD** MISC XX SCH (16:00)
[2019-05-26] MEDS: CEFEPIME HCL 1 GM in D5W MINI-BAG PLUS 50 ML IV SCH (17:15)
[2019-05-26] MEDS: cloNIDine 0.2 MG TAB PO SCH (21:20)
[2019-05-27 04:00] VITALS: BP 197/94
[2019-05-27 05:44] LABS: HEMATOCRIT 32.6 % (42.0-52.0); HEMOGLOBIN 10.7 g/dl (13.5-17.5); MEAN CORPUSCULAR HGB CONC 32.8 g/dl (32.0-36.5); MEAN CORPUSCULAR VOLUME 94.5 fl (80.0-96.0); PLATELET COUNT, AUTOMATED 273 10^3/uL (150-450); RED BLOOD COUNT 3.45 10^6/uL (4.30-6.10); WHITE BLOOD COUNT 11.8 10^3/uL (4.0-10.0)
[2019-05-27] MEDS: **hydrALAZINE** 10 MG TAB PO SCH ×3 (06:02→22:41)
[2019-05-27 06:04] LABS: CALCIUM LEVEL 8.6 MG/DL (8.5-10.1); CREATININE FOR GFR 6.46 MG/DL (0.70-1.30); GLOMERULAR FILTRATION RATE 9.9 (>60); POTASSIUM SERUM 4.7 MEQ/L (3.5-5.1)
[2019-05-27 08:00] VITALS: BP 160/87
[2019-05-27] MEDS: PANTOPRAZOLE 40MG TAB (PROTONIX) PO SCH (08:13)
[2019-05-27] MEDS: SERTRALINE HCL 25 MG TABLET PO SCH (08:13)
[2019-05-27] MEDS: cloNIDine 0.2 MG TAB PO SCH ×2 (08:13→21:32)
[2019-05-27] MEDS: METOPROLOL TART 25 MG TABLET PO SCH ×2 (08:13→21:31)
[2019-05-27] MEDS: LOSARTAN 50 MG TAB PO SCH (08:14)
[2019-05-27] MEDS: SUCROFERRIC OXYHYDROXIDE 500MG CHEW TAB (VELPHORO) PO SCH ×3 (08:14→16:53)
[2019-05-27] MEDS: amLODIPine 5 MG TAB PO SCH (08:14)
[2019-05-27] MEDS: CYANOCOBALAMIN 500 MCG TAB PO SCH (08:14)
[2019-05-27] MEDS: HumaLOG INSULIN (NovoLOG) PER UNIT SC SCH ×4 (08:15→21:00)
[2019-05-27] MEDS: MORPHINE 4 MG/ML 1ML VIAL/SYRINGE (J2270) IV PRN ×3 (08:16→22:42)
--- NOTE | 2019-05-27 09:25 | IPNPDOC ---
Text Note Date of Service The patient was seen on 05/27/19. NOTE Subjective: Patient seen and examined at bedside. Still has left hand/finger pain, but feels it is improving. Efficiency Clerk at bedside to provide sign language assistance in communication. Objective: VITAL SIGNS: Please see below. GENERAL: no acute distress, lying comfortably in bed, deaf HEENT: NC/AT, EOMI CARDIOVASCULAR: RRR, +S1S2, systolic murmur LUNGS: CTA B/L ABDOMEN: Soft and nontender on palpation Ext: LUE palpable thrill from AV fistula, fourth distal phalange of left hand necrotic with streaking extending to middle of palm - improving; tender to palpation, but also improving LABORATORY DATA: See below. IMAGING: X-ray of the left hand shows necrosis of the fourth distal phalange on the left hand, the final report is pending MICROBIOLOGY: Please see below. ASSESSMENT: 43 yo male with a past medical history of ESRD/HD, hypertension, diabetes admitted for management of osteomyelitis affecting the left fourth distal phalanx. PLAN: #Osteomyelitis / gangrene left fourth distal phalanx. - vascular surg c/s appreciated - pending fistulogram - hand surgery c/s will be outpatient - continue IV Abx for now #Hypertensive urgency - still uncontrolled - clonidine increased to 0.2 mg BID; continue norvasc, cozaar, metoprolol, hydralazine and labetalol prn #ESRD - HD M/W/F - nephrology c/s appreciated #anemia - in the setting of ESRD - aranesp started with HD # diabetes #DVT prophylaxix - mechanical Dispo: pending fistulogram, continue IV Abx, resume 2 gram sodium diet VS,Fishbone, I+O VS, Fishbone, I+O Laboratory Tests 05/27/19 05:10 Red Blood Count 3.45 L, Mean Corpuscular Volume 94.5, Mean Corpuscular Hemoglobin 31.0, Mean Corpuscular Hemoglobin Concent 32.8, Red Cell Distribution Width 11.9, Calcium Level 8.6 Vital Signs Date Time Temp Pulse Resp B/P (MAP) Pulse Ox O2 Delivery O2 Flow Rate FiO2 05/27/19 08:26 18 05/27/19 08:14 88 160/87 05/27/19 08:00 97.0 98 05/24/19 00:33 Room Air I&O- Last 24 Hours up to 6 AM 05/27/19 05:59 Intake Total 2100 ml Output Total 0 ml Balance 2100 ml JEIMY LOYOLA MD May 27, 2019 09:25
[2019-05-27] MEDS ORDERED: SLF 3 ML SYR IV PRN (11:15)
[2019-05-27 12:00] VITALS: BP 147/60
[2019-05-27] MEDS: SLF 3 ML SYR IV SCH ×2 (13:23→22:42)
--- NOTE | 2019-05-27 15:13 | IPN ---
DATE: 05/27/2019 Mr. Morris is seen this morning on his bedside with the help of hourly sign language interpreter. He is sitting at the edge of bed eating his breakfast at the time of my visit. He is feeling about the same and denies any new complaints. His blood pressure is much better now and denies any headache, dyspnea, chest pain, fever or chills. He is being treated for left ring finger cellulitis, gangrene and extending cellulitis to his hand. He has an AV fistula in his left forearm and has been seen by vascular surgery for possible steal syndrome. I discussed with Dr. Pace this morning, who informed me that orthopedic surgery does not wish to see him as they do not think that the patient needs any inpatient care and they would want to see him in the office as an outpatient. In any event, the patient is afebrile at present and remains on intravenous antibiotics. PHYSICAL EXAMINATION" Temperature 97 degrees Fahrenheit, heart rate 88 per minute and respiratory rate 18 per minute. Blood pressure 160/87 mmHg and oxygen saturation 97% on room air. Head is atraumatic. Neck is supple and without jugular venous distention (JVD) or thyroid enlargement. Heart sounds are regular and lungs clear to auscultation. Abdomen is soft and nontender and bowel sounds are normal. Extremities have no cyanosis or clubbing. Left forearm AV fistula is patent. Left ring finger has gangrenous distal phalanx with swelling and erythema. On the palm and hand his erythema is slightly regressing. Neurologically, he is awake, alert and at his baseline mentation. He is deaf and mute and hourly sign language interpreter was here to help with communication. LABORATORIES: Today's labs show WBC count 11.8, hemoglobin 10.7 and hematocrit 32.6. Sodium 136, potassium 4.7, CO2 29, BUN 27 and creatinine 6.46. Glucose 175 and calcium 8.6. PROBLEMS: 1. End-stage renal disease. The patient is regularly dialyzed on Tuesday, Tuesday and Tuesday schedule. He was last dialyzed on Tuesday and will be scheduled for next dialysis tomorrow. At present, there is no emergent need for dialysis today. His volume status is well-compensated and electrolytes are within normal range. 2. Hypertension. Blood pressure control has improved significantly with medication adjustment since yesterday. We have sent rennin and aldosterone level in addition to catecholamines and they are still pending. I do not feel that he has any adrenal problems; however, yesterday his blood pressure was quite high due to which those tests were ordered. 3. Left index finger gangrene, cellulitis. The patient remains on antibiotics and slowly improving. I will discuss with Dr. Blair tomorrow about possible angiogram of his left upper extremity to rule out any possibility of vascular compromise leading to worsening infection and ischemia. 4. Anemia. His anemia is mild and stable and we will continue to monitor closely.
[2019-05-27 16:00] VITALS: BP 162/47
[2019-05-27] MEDS: **VANCO AFTER HD** MISC XX SCH (16:00)
[2019-05-27] MEDS: CEFEPIME HCL 1 GM in D5W MINI-BAG PLUS 50 ML IV SCH (19:26)
[2019-05-27 20:00] VITALS: BP 180/94
[2019-05-28 04:00] VITALS: BP 154/70
[2019-05-28 05:39] LABS: HEMATOCRIT 31.9 % (42.0-52.0); HEMOGLOBIN 10.4 g/dl (13.5-17.5); MEAN CORPUSCULAR HGB CONC 32.6 g/dl (32.0-36.5); MEAN CORPUSCULAR VOLUME 95.2 fl (80.0-96.0); PLATELET COUNT, AUTOMATED 273 10^3/uL (150-450); RED BLOOD COUNT 3.35 10^6/uL (4.30-6.10); WHITE BLOOD COUNT 12.7 10^3/uL (4.0-10.0)
[2019-05-28 06:01] LABS: CREATININE FOR GFR 7.98 MG/DL (0.70-1.30); GLOMERULAR FILTRATION RATE 7.7 (>60); POTASSIUM SERUM 4.9 MEQ/L (3.5-5.1); VANCOMYCIN RANDOM 18.7 UG/ML
[2019-05-28] MEDS: **hydrALAZINE** 10 MG TAB PO SCH ×3 (06:33→21:08)
[2019-05-28] MEDS: SLF 3 ML SYR IV SCH ×3 (06:34→21:09)
[2019-05-28] MEDS ORDERED: BUPIVACAINE HCL 0.5% 10 ML VIAL As Ordered ONE (07:57)
[2019-05-28] MEDS ORDERED: LIDOCAINE 2% MDV 20 ML VIAL As Ordered ONE (07:57)
[2019-05-28 08:00] VITALS: BP 162/78
[2019-05-28] MEDS: MORPHINE 4 MG/ML 1ML VIAL/SYRINGE (J2270) IV PRN (08:02)
[2019-05-28] MEDS: HumaLOG INSULIN (NovoLOG) PER UNIT SC SCH ×4 (08:03→20:22)
[2019-05-28] MEDS: PANTOPRAZOLE 40MG TAB (PROTONIX) PO SCH (08:03)
[2019-05-28] MEDS: amLODIPine 5 MG TAB PO SCH (08:04)
[2019-05-28] MEDS: SERTRALINE HCL 25 MG TABLET PO SCH (08:05)
[2019-05-28] MEDS: CYANOCOBALAMIN 500 MCG TAB PO SCH (08:05)
[2019-05-28] MEDS: METOPROLOL TART 25 MG TABLET PO SCH ×2 (08:05→20:00)
[2019-05-28] MEDS: cloNIDine 0.2 MG TAB PO SCH ×2 (08:05→20:00)
[2019-05-28] MEDS: SUCROFERRIC OXYHYDROXIDE 500MG CHEW TAB (VELPHORO) PO SCH ×3 (08:06→18:49)
[2019-05-28] MEDS: LOSARTAN 50 MG TAB PO SCH (08:06)
[2019-05-28] MEDS ORDERED: MIDAZOLAM INJ 2 MG/2 ML VIAL (J2250) As Ordered ONE (08:21)
[2019-05-28] MEDS ORDERED: fentaNYL 100 MCG/2 ML INJECTION (J3010) As Ordered ONE (08:21)
--- NOTE | 2019-05-28 10:56 | CR ---
DATE OF CONSULTATION: 05/27/2019 This is a pleasant 49-year-old male with chief complaint of his left ring finger necrosis. This is a pleasant 49-year-old male who was admitted to the medicine service for his left ring finger. He says that it has been going on since January; started out initially with a blister, then started turning black. The pain is mild with a constant throbbing. It is made worse with any sort of use and making into a composite fist and alleviated with rest. He states he had some redness in his left hand and forearm and that is what brought him to the emergency room (ER). He just takes Tylenol for pain control. He was given antibiotics from his dialysis. He is unclear when that first started. He denies any fevers, chills, nausea, vomiting, or other signs of systemic illness. Complete 10-system review was conducted. Pertinent positives and negatives in history of present illness (HPI). All other systems negative. PAST MEDICAL AND SURGICAL HISTORY: He has end-stage renal disease on dialysis with an arteriovenous (AV) fistula. He has hypertension, type 2 diabetes. SOCIAL HISTORY: He does not smoke or drink. FAMILY HISTORY: They all smoke, smoking, hypertension, stroke, myocardial infarction ([place]), and vasculopaths. ALLERGIES: PENICILLINS, BACITRACIN, NEOMYCIN, POLYMYXIN. HOME MEDICATIONS: - vitamin D - vitamin B12 - folic acid - glipizide - insulin - losartan - metoprolol - pantoprazole - rosuvastatin - sertraline PHYSICAL EXAMINATION: Patient is awake, alert, and oriented. Breathing unlabored on room air. Well dressed. Appropriate affect. Using sign language to communicate through an chief compressor station engineer. Right hand: Severe atrophy of the hypothenar eminence. Sensation diminished in all distributions 1 of 2 with superficial sensory branch of median nerve, right sensory branch of the radial nerve and ulnar nerve. Positive anterior interosseous nerve (AIN), posterior interosseous nerve (PIN) with ulnar motor nerve function. Radial pulse 2+ and regular rate. Skin is intact. Left hand: Distal to the distal interphalangeal (DIP) of the left ring finger, it is necrotic, it is dry. There is some swelling and erythema proximally up to the metacarpophalangeal (MCP). He is limited to a composite fist due to stiffness. Radial pulses 2+ and regular rate. Sensation intact to light touch, superficial sensory branch of radial nerve, median nerve, ulnar nerve. Positive AIN, PIN to ulnar motor function. Laboratory values reviewed, all within normal limits except white blood count only 12.9 to 11.8 and he has been afebrile. X-ray reviewed demonstrating left distal phalanx fracture with displacement along with signs of subcutaneous emphysema and potential osteomyelitis. DIAGNOSIS: Left ring finger necrosis. I discussed with the patient and his handicrafts teacher that this is a long-term issue that has been going on since January and will likely continue. Before any sort of surgical indications are met, we need the finger to fully demarcate. This is going to take following it for a number of weeks in the clinic. As long as he has not become septic from this, there is no urgency behind any intervention. He may continue oral antibiotics upon discharge and followup with my office in 2 weeks after discharge for re-evaluation of the finger. He may use the hand as tolerated. He should actually work with physical therapy to help his hand range of motion so that once this is resolved, he still has good functional use of the hand. Patient and his handicrafts teacher agreed and appreciated this plan, and we will see him as an outpatient. There is no surgical abscess or intervention indicated at this time. UNRULY
[2019-05-28] MEDS ORDERED: HEPARIN 1,000 UNITS/ML 10ML VIAL (FOR RADIOLOGY& DIALYSIS ONLY) IV ONE (11:00)
--- NOTE | 2019-05-28 11:28 | ROOPDOC ---
[facility] Report Of Operation Report of Operation DATE OF PROCEDURE: 05/28/2019 PREOPERATIVE DIAGNOSIS: End-stage renal disease with a left radiocephalic autogenous arteriovenous fistula. Nonhealing left fourth finger necrosis, gangrene and ulceration. POSTOPERATIVE DIAGNOSIS: End-stage renal disease with a left radiocephalic autogenous arteriovenous fis karishma. Nonhealing left fourth finger necrosis, gangrene, ulceration and left upper extremity steal syndrome. PROCEDURE: Left radiocephalic autogenous arteriovenous fistulogram. Selective left radial artery catheter placement with angiogram. Selective left brachial artery catheter placement with angiogram. SURGEON: Dr. Slade Blair M.D. CSW: Linda Montanez INDICATION: Patient is a 49-year-old male with end-stage renal disease who dialyzes through a left radiocephalic autogenous arteriovenous fistula. Patient has had ulceration and ischemia and gangrene to the left fourth finger secondary to trauma to the left fourth finger. Patient will undergo a left radiocephalic arteriovenous fistulogram with selective arterial catheterization with qasim ography to evaluate for steal syndrome. Procedure was explained and described to the patient in detail. Risks, benefits and alternative treatment options were discussed with the patient. Benefits included but were not limited to ascertaining the etiology of the left arm and hand symptoms with possible intervention for resolution of the symptoms. Alternative treatment options in cluded but were not limited to no intervention. Risks included but were not limited to infection, bleeding, loss of arteriovenous access, steal syndrome, possible need for open surgical intervention, anesthetic complications, allergic reaction or complication from the prepping and draping materials, pain, allergic reaction or complication from the contrast media, scarring of the skin, hematoma formation, bruising, possible need for transfusion of blood products, cerebrovascular accident, myocardial infarction, pulmonary embolus, deep venous thrombosis, loss of limb, loss of life , poor results and poor outcome. Risks of not performing the procedure included but were not limited to worsening of the symptoms, with loss of function of the left arm and hand and possibly loss of limb. Patient's questions were answered. Patient voices understanding of these risks, benefits and alternative treatment options. Patient voices acceptance of these risks associated with the procedure and consents to proceed with a fistulogram with selective arterial angiography with possible intervention. There were no promises or guarantees made to the patient regarding the procedure, results of the procedure and/or outcome of the procedure. ANESTHESIA: Local with 2 mL of 2% lidocaine mixed with 0.5% Marcaine SEDATION TIME: No sedation was given. ESTIMATED BLOOD LOSS: 5 mL. IV FLUIDS: 50 mL. HEPARIN: None PROTAMINE: None FLUORO TIME: 0.5 minutes CONTRAST: 2 mL. of Isovue 300 COMPLICATIONS: None DRAINS: None. SPECIMENS: None. IMPLANTS: None PROCEDURE: Patient was taken to the angiography suite, placed supine on the angiography room table and then prepped and draped in a standard surgical fashion. A procedural time-out was conducted by myself and the team members involved in the procedure confirming the correct patient, procedure and laterality. The left radiocephalic autogenous arteriovenous was then cannulated with a micro-puncture needle after anesthetizing the overlying skin and subcutaneous tissue with 2% lidocaine mixed with 0.5% Marcaine. A micropuncture wire was advanced through the micropuncture needle which was up-sized to a micropuncture sheath. An angled Glidewire was advanced through the micropuncture sheath. A burn catheter and the angled Glidewire were then used to traverse through the arterial venous fistula and entered into the radial artery in a retrograde fashion. A selective radial artery angiogram and fistulogram was then performed. The catheter was placed selectively into the brachial artery and a left forearm and hand angiogram was performed . The catheter was removed and manual compression applied at the puncture site for hemostasis. Dressings were then applied. Patient tolerated the procedure well. There were no complications. All instrument, sponge and needle counts were correct at the end of the case. Dr. Blair was present for and directed the entire case. Patient was transferred to the recovery area and subsequently discharged to the floor in stable condition. RADIOLOGIC SUPERVISION AND INTERPRETATION: The selective left radial artery angiogram showed the radial artery to be patent into the arteriovenous fistula with no flow noted in the radial artery distal to the arteriovenous still anastomosis. The fistulogram showed the cephalic vein to be widely patent to the central venous system with no central venous stenosis or occlusion noted. The selective brachial artery angiogram showed the radial and ulnar arteries to be patent to the wrist. There was again noted to be no flow in the radial artery distal to the arteriovenous anastomosis. The ulnar artery was patent into the palmar arch with retrograde filling of the radial artery into the arteriovenous fistula. The digital arteries were patent and small in caliber. The distal brachial artery was widely patent with good flow noted. CONCLUSION: The patient underwent a selective brachial and radial artery angiogram which showed steal syndrome with retrograde filling of the radial artery via the ulnar artery into the palmar arch with continued filling of the digital arteries which were small. PLAN: Patient will undergo an arterial duplex of the left upper extremity to evaluate inflow through the subclavian and axillary arteries. Patient will undergo a vein mapping of the right upper extremity for possible right upper extremity autogenous arteriovenous fistula formation. Patient may require further intervention in the left upper extremity and/or ligation of the left autogenous radiocephalic arteriovenous fistula. Further plan will be dependent on the results of the left upper extremity arterial duplex and right upper extremity vein mapping. Jarrett Blair MD May 28, 2019 11:28
[2019-05-28] MEDS: ACETAMINOPHEN TAB 650MG DOSE (2X325MG) PO PRN (11:51)
[2019-05-28 12:00] VITALS: BP 158/72
--- NOTE | 2019-05-28 12:13 | IPNPDOC ---
Date Seen The patient was seen on 05/28/19. Progress Note Vascular Surgery. Dr Blair. HPI: 49year old M with h/o traumatic injury to his left fourth finger who now has cellulitis and dry gangrene of the finger, vascular surgery consulted. This AM the pt is S/P fistulogram LUE as per Dr Blair, per Dr Blair steal syndrome of LUE noted related to AVF. Arterial US LUE and vein mapping requested. Denies any fevers, chills, weakness, fatigue, Headache, Chest Pain, Shortness of breath, cough, palpitations, abdominal pain, N/V/D or changes in bowel or bladder habits. PAST MEDICAL/ SURGICAL HISTORY: ESRD on dialysis Tuesday, Tuesday and Tuesday via AV fistula at the left wrist Hypertension. Type 2 diabetes PE: GEN: 49yoM, NAD. HEENT: Normocephalic, atraumatic. Moist mucous membranes. CHEST: Regular rate and rhythm, +S1, +S2 LUNGS: Clear to auscultation bilaterally. ABD: Round, soft, non-tender, non-distended. EXT: Left fourth finger necrosis noted. Erythema of the fourth finger and diffuse swelling but appears less than previous area of demarcation. LUE AVF with thrill noted, bandage in place. No lower extremity edema appreciated. NEURO: Alert and oriented x 3. No focal deficits appreciated. A&P: 1. Left fourth finger cellulitis and dry gangrene. Pt with LUE AVF. IV Vanco/cefepime as per Med Svc. S/P Fistulogram this AM as per Dr Blair. AVF LUE with steal syndrome with retrograde filling of the radial artery via the ulnar artery into the palmar arch with continued filling of the digital arteries which were small. Arterial US LUE and vein mapping requested. Dr Blair plans to discuss recommendations/options with pt when further testing is completed. VS, I&O, 24H, Fishbone Vital Signs/I&O Vital Signs Date Time Temp Pulse Resp B/P (MAP) Pulse Ox O2 Delivery O2 Flow Rate FiO2 05/28/19 09:01 68 18 99 2 05/28/19 08:28 95.5 05/28/19 08:06 162/78 05/24/19 00:33 Room Air I&O- Last 24 Hours up to 6 AM 05/28/19 06:00 Intake Total 978 ml Output Total 0 ml Balance 978 ml Laboratory Data 24H LABS Laboratory Tests 2 05/27/19 11:51: Bedside Glucose (Misc Panel) 337H 05/27/19 16:30: Bedside Glucose (Misc Panel) 213H 05/27/19 21:19: Bedside Glucose (Misc Panel) 165H 05/28/19 05:21: Nucleated Red Blood Cells % (auto) 0.0, Anion Gap 9, Glomerular Filtration Rate 7.7L, Blood Urea Nitrogen 39H, Creatinine 7.98H, Sodium Level 135L, Potassium Level 4.9, Chloride Level 100, Carbon Dioxide Level 26, Calcium Level 9.0, Random Vancomycin Level 18.7 CBC/BMP Laboratory Tests 05/28/19 05:21 Red Blood Count 3.35 L, Mean Corpuscular Volume 95.2, Mean Corpuscular Hemoglobin 31.0, Mean Corpuscular Hemoglobin Concent 32.6, Red Cell Distribution Width 11.9, Calcium Level 9.0 Microbiology Microbiology 05/23/19 Blood Culture - Preliminary, Resulted No Growth after 72 hours. All specime... 05/23/19 Blood Culture - Preliminary, Resulted No Growth after 72 hours. All specime... Attending Note Attending Note VASCULAR SURGICAL ATTENDING NOTE: Dr. Slade Blair M.D. The patient was seen on 05/28/19 at 14:00 at dialysis. ASSESSMENT: Patient is a 49-year-old male with nonhealing left fourth finger ulcer and dry gangrene with cellulitis of the left fourth finger and palm of the hand. Patient underwent an angiogram which showed steal syndrome. The patient underwent an arterial duplex of the left upper arm which showed monophasic flow from the subclavian artery down consistent with probable subclavian artery stenosis and/or occlusion. The patient underwent a vein mapping of the right upper extremity which showed good triphasic flow through the arteries in the right upper extremity as well as adequate size cephalic vein and basilic vein at the wrist forearm and upper arm for creation of a new autogenous arteriovenous fistula. The results of the angiogram, arterial duplex and venous duplex were discussed with the patient at hemodialysis through a conference interpreter. PLAN: Patient will undergo a CT angiogram of the chest and left upper extremity to evaluate for play been artery stenosis and/or occlusion. Pending the results of the CT angiogram the patient may require revascularization with either endovascular or open surgical intervention. This was discussed with the patient and he agrees to proceed with a CT angiogram and will discuss results and options with the patient after the CT angiogram. Randi Irizarry was the attending vascular surgeon for this patient encounter. The patient was seen, examined, interviewed and evaluated independently by Dr. Evelyn Blair M.D. Dr. Evelyn Blair M.D. was fully available during the consultation evaluation. All aspects of the patient interview, examination, medical decision making process, and medical care plan development were reviewed and approved by Dr. Evelyn Blair M.D. Dr. Evelyn Blair M.D. is aware and concurs with the plan as stated in the body of this note and will attest to such by his/her cosignature. Tiesha Mon May 28, 2019 11:37 Jarrett Blair MD May 28, 2019 14:04
--- NOTE | 2019-05-28 12:46 | IPNPDOC ---
Text Note Date of Service The patient was seen on 05/28/19. NOTE Subjective: Patient seen and examined at bedside. Left hand/finger pain continues to improve. Banking Consultant at bedside to provide sign language assistance in communication. Objective: VITAL SIGNS: Please see below. GENERAL: no acute distress, lying comfortably in bed, deaf HEENT: NC/AT, EOMI CARDIOVASCULAR: RRR, +S1S2, systolic murmur LUNGS: CTA B/L ABDOMEN: Soft and nontender on palpation Ext: LUE palpable thrill from AV fistula, fourth distal phalange of left hand necrotic with streaking extending to middle of palm - improving; tender to palpation, but also improving LABORATORY DATA: See below. IMAGING: X-ray of the left hand shows necrosis of the fourth distal phalange on the left hand, the final report is pending MICROBIOLOGY: Please see below. ASSESSMENT: 43 yo male with a past medical history of ESRD/HD, hypertension, diabetes admitted for management of osteomyelitis affecting the left fourth distal phalanx. PLAN: #Osteomyelitis / gangrene left fourth distal phalanx. - vascular surg c/s appreciated; fistulogram shows steal syndrome - hand surgery c/s appreciated - outpatient follow up - continue IV Abx for now #Hypertensive urgency - resolved - clonidine increased to 0.2 mg BID; continue norvasc, cozaar, metoprolol, hydralazine and labetalol prn #ESRD - HD M/W/F - nephrology c/s appreciated #anemia - in the setting of ESRD - aranesp started with HD # diabetes #DVT prophylaxix - mechanical Dispo: pending vascular f/u for steal syndrome; outpatient hand surgeon f/u; PT eval/treat VS,Fishbone, I+O VS, Fishbone, I+O Laboratory Tests 05/28/19 05:21 Red Blood Count 3.35 L, Mean Corpuscular Volume 95.2, Mean Corpuscular Hemoglobin 31.0, Mean Corpuscular Hemoglobin Concent 32.6, Red Cell Distribution Width 11.9, Calcium Level 9.0 Vital Signs Date Time Temp Pulse Resp B/P (MAP) Pulse Ox O2 Delivery O2 Flow Rate FiO2 05/28/19 12:00 97.5 58 16 158/72 (100) 99 05/28/19 09:01 2 05/24/19 00:33 Room Air I&O- Last 24 Hours up to 6 AM 05/28/19 05:59 Intake Total 978 ml Output Total 0 ml Balance 978 ml JEIMY LOYOLA MD May 28, 2019 12:46
--- NOTE | 2019-05-28 13:00 | IPN ---
DATE OF VISIT: 05/28/2019 Mr. Morris is seen this morning on his bedside. He had a fistulogram of his left arm arteriovenous (AV) fistula followed by an arterial ultrasound of his arm. He has gangrene and cellulitis of his left index finger. 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 The patient remains dialysis dependent and his dialysis scheduled for this afternoon. He denies any nausea, vomiting, dyspnea, chest pain, fever or chills. His lang interpreter is present who helped to interpret. On physical exam, temperature 97.5 degrees Fahrenheit, heart rate 58 per minute and respiratory rate 16 per minute. Blood pressure 158/72 mmHg and oxygen saturation 99% on room air. Head atraumatic. Neck supple and without jugular venous distention (JVD) or thyroid enlargement. Patient is deaf and mute. His heart sounds are regular and lungs clear to auscultation. Abdomen soft and nontender. Bowel sounds normal. Extremities without any cyanosis or clubbing. Left hand and left ring finger ischemia and gangrenous change is essentially unchanged. He has a dressing on his left forearm AV fistula from where he had a fistulogram done today. Neurologically, he is at his baseline mentation. Today's labs show WBC count 12.7, hemoglobin 10.4 and hematocrit 31.9. Sodium 135, potassium 4.9, CO2 26, BUN 39 and creatinine 7.98. Glucose 185 and calcium 9.0. PROBLEMS: 1. End-stage renal disease. Patient is due for dialysis today and will schedule his dialysis for this afternoon. He had a fistulogram of his AV fistula this morning. 2. Gangrene of left index finger and ischemia with cellulitis. Patient remains on antibiotics. 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 He already had a fistulogram and ultrasound of his arteries of left arm. Dr. Blair is following. We will wait for a final decision from Dr. Blair. 3. Hypertension. Blood pressure control has improved significantly with med adjustment. His catecholamines, renin and aldosterone are still pending. 4. Anemia. His anemia has been stable and no intervention is indicated at present.
[2019-05-28] MEDS: **VANCO AFTER HD** MISC XX SCH (16:00)
[2019-05-28] MEDS ORDERED: ISOVUE-370 76% 100ML VIAL (Q9967) As Ordered ONE ×2 (17:23→17:54)
--- NOTE | 2019-05-28 17:42 | REP ---
RIGHT UPPER EXTREMITY DUPLEX DOPPLER ARTERIAL VENOUS ULTRASOUND FOR AV FISTULA MAPPING: Real-time ultrasound evaluation of the right upper extremity arterial and venous systems is performed to map for AV fistula. There is thrombus in the right median cubital /antecubital vein at the site of an IV. Right basilic vein demonstrates no thrombus with a diameter at the upper humerus 8 mm, mid humerus 7 mm, distal humerus 6 mm and throughout the forearm 2 mm. The right cephalic vein measures 4 mm at the upper humerus, 6 mm at the mid to distal humerus and 4 mm throughout the forearm. The right upper extremity arterial structures demonstrate normal flow velocities with triphasic wave forms. Right axillary artery measures 6 mm, brachial artery 4 mm, radial artery 3 mm and ulnar artery 2 mm. Electronically Signed by Sg Cabral MD 05/30/2019 09:56 A
--- NOTE | 2019-05-28 17:59 | REP ---
LEFT UPPER EXTREMITY DUPLEX DOPPLER ARTERIAL ULTRASOUND: Real-time sonographic evaluation and duplex Doppler interrogation of the left upper extremity arterial system was performed. There is an AV fistula in place distally with overlying bandaging material. Monophasic wave forms are seen throughout the left upper extremity arterial system. Flow velocity is somewhat increased on distal left brachial artery as well as ulnar and radial arteries. LEFT PEAK SYSTOLIC VELOCITY Subclavian artery distally 98.4 cm/s Axillary 102 cm/s Brachial proximal 153 cm/s Brachial mid 132 cm/s Distal brachial 192 cm/s Proximal ulna 168 cm/s Mid ulna 123 cm/s Distal ulna 176 cm/s Proximal radial 187 cm/s Mid radial 244 cm/s Distal radial 302 cm/s Electronically Signed by Sg Cabral MD 05/30/2019 09:56 A
[2019-05-28] MEDS: CEFEPIME HCL 1 GM in D5W MINI-BAG PLUS 50 ML IV SCH (18:50)
[2019-05-28 18:55] VITALS: BP 220/100
[2019-05-28] MEDS: LABETALOL HCL 100 MG/20 ML VIAL IV PRN (18:56)
--- NOTE | 2019-05-28 19:34 | REPVR ---
EXAM: CT Angiography Chest With Contrast EXAM DATE/TIME: 05/28/2019 5:43 PM CLINICAL HISTORY: 49 years old, male; Condition or disease; Other: Lt arm non healing wounds; Additional info: Left arm nonhealing wounds TECHNIQUE: Imaging protocol: Computed tomographic angiography of the chest with intravenous contrast. 3D rendering: MIP and 3D reconstructed images were created and reviewed. Radiation optimization: All CT scans at this facility use at least one of these dose optimization techniques: automated exposure control; mA and/or kV adjustment per patient size (includes targeted exams where dose is matched to clinical indication); or iterative reconstruction. Contrast material: ISOVUE 370; Contrast volume: 100 ml; Contrast route: IV; COMPARISON: No relevant prior studies available. FINDINGS: Pulmonary arteries: There are no filling defects in the pulmonary arterial tree to suggest a pulmonary embolus. Aorta: The thoracic aorta is intact without aneurysm or dissection. The thoracic aorta is intact without aneurysm or dissection. Other arteries: There is calcified plaque in the splenic and superior mesenteric arteries. Thyroid: The thyroid gland is normal. Lungs: Lung volumes are relatively small bilaterally. The lungs are clear. Pleural space: There are no pleural effusions. Heart: Mild cardiomegaly. There are coronary artery calcifications. Mediastinum: The trachea and bronchial tree are normal. The esophagus is normal. Lymph nodes: There is no hilar, mediastinal or axillary lymphadenopathy. Bones/joints: The T6-T11 thoracic vertebral bodies are fused by bridging osteophytes. Soft tissues: Unremarkable. Other findings: Included upper abdominal structures appear normal. Obesity. No acute pulmonary process. IMPRESSION: 1. Mild cardiomegaly. 2. The thoracic aorta and its major branches are intact without aneurysm, stenosis, dissection or occlusion. 3. No pulmonary embolus. 4. No acute pulmonary process. Electronically signed by: René Mcclellan On 05/28/2019 19:34:26 PM
--- NOTE | 2019-05-28 19:35 | REPVR ---
EXAM: CTA Left Upper Extremity With Contrast EXAM DATE/TIME: 05/28/2019 5:43 PM CLINICAL HISTORY: 49 years old, male; Condition or disease; Other: Non healing wounds; Additional info: Left arm nonhealing wounds TECHNIQUE: Imaging protocol: Axial CTA of the Left upper extremity with intravenous contrast material, including non-contrast images if performed. 3D rendering: MIP reconstructed images were created and reviewed. Radiation optimization: All CT scans at this facility use at least one of these dose optimization techniques: automated exposure control; mA and/or kV adjustment per patient size (includes targeted exams where dose is matched to clinical indication); or iterative reconstruction. Contrast material: ISOVUE 370; Contrast volume: 100 ml; Contrast route: IV; COMPARISON: US UNI UPPPER EXTREM ARTERIAL 05/28/2019 10:09 AM FINDINGS: Limitations: The field of view excludes the lateral and distal aspects of the left upper extremity. The left wrist and left hand are not imaged. Left subclavian artery: No acute findings. No occlusion or significant stenosis. Left axillary artery: No acute findings. No occlusion or significant stenosis. Left brachial artery: No acute findings. No occlusion or significant stenosis. Left radial artery: Atherosclerotic calcification. No acute findings. No occlusion or significant stenosis. The distal portion is not included in the [id number]. Left ulnar artery: Atherosclerotic calcification. No acute findings. No occlusion or significant stenosis. The distal portion is not included in the [id number]. Bones/joints: No acute fracture. No dislocation. Soft tissues: Unremarkable. No abnormal contrast enhancement. IMPRESSION: Limited study. No occlusion or significant stenosis is identified within the [id number]. Electronically signed by: René Mcclellan On 05/28/2019 19:34:42 PM
[2019-05-28 20:00] VITALS: BP_SYST 171; BP_SYST 199; BP_DIAS 84; BP_DIAS 93
[2019-05-28] MEDS: VANCOMYCIN HCL 1,000 MG, VIAL MATE ADAPTER 1 EACH in D5W 250 ML IV SCH (21:07)
[2019-05-29] VITALS: BP 189/92
[2019-05-29] MEDS: LABETALOL HCL 100 MG/20 ML VIAL IV PRN (00:43)
[2019-05-29 04:00] VITALS: BP 182/84
[2019-05-29 05:44] LABS: HEMATOCRIT 30.6 % (42.0-52.0); HEMOGLOBIN 10.2 g/dl (13.5-17.5); MEAN CORPUSCULAR HEMOGLOBIN 31.6 pg (27.0-33.0); MEAN CORPUSCULAR HGB CONC 33.3 g/dl (32.0-36.5); MEAN CORPUSCULAR VOLUME 94.7 fl (80.0-96.0); PLATELET COUNT, AUTOMATED 264 10^3/uL (150-450); RED BLOOD COUNT 3.23 10^6/uL (4.30-6.10)
[2019-05-29] MEDS: SLF 3 ML SYR IV SCH ×3 (05:46→20:58)
[2019-05-29] MEDS: **hydrALAZINE** 10 MG TAB PO SCH ×3 (05:49→20:58)
[2019-05-29 06:05] LABS: CALCIUM LEVEL 8.9 MG/DL (8.5-10.1); CREATININE FOR GFR 5.91 MG/DL (0.70-1.30); GLOMERULAR FILTRATION RATE 10.9 (>60); POTASSIUM SERUM 4.4 MEQ/L (3.5-5.1)
[2019-05-29 08:06] VITALS: BP 170/90
[2019-05-29] MEDS: cloNIDine 0.2 MG TAB PO SCH ×2 (08:07→20:58)
[2019-05-29] MEDS: CYANOCOBALAMIN 500 MCG TAB PO SCH (08:08)
[2019-05-29] MEDS: amLODIPine 5 MG TAB PO SCH (08:08)
[2019-05-29] MEDS: METOPROLOL TART 25 MG TABLET PO SCH ×2 (08:08→20:58)
[2019-05-29] MEDS: SERTRALINE HCL 25 MG TABLET PO SCH (08:08)
[2019-05-29] MEDS: LOSARTAN 50 MG TAB PO SCH (08:08)
[2019-05-29] MEDS: PANTOPRAZOLE 40MG TAB (PROTONIX) PO SCH (08:08)
[2019-05-29] MEDS: SUCROFERRIC OXYHYDROXIDE 500MG CHEW TAB (VELPHORO) PO SCH ×3 (08:09→17:20)
[2019-05-29] MEDS: HumaLOG INSULIN (NovoLOG) PER UNIT SC SCH ×4 (08:09→20:57)
[2019-05-29] MEDS: MORPHINE 4 MG/ML 1ML VIAL/SYRINGE (J2270) IV PRN ×2 (08:10→20:57)
--- NOTE | 2019-05-29 09:24 | IPNPDOC ---
Date Seen The patient was seen on 05/29/19. Progress Note Vascular Surgery. Dr Blair. HPI: 49year old M with h/o traumatic injury to his left fourth finger who now has cellulitis and dry gangrene of the finger, vascular surgery consulted. This AM the pt is S/P fistulogram LUE as per Dr Blair, per Dr Blair steal syndrome of LUE noted related to AVF. Further imaging was requested. PAST MEDICAL/ SURGICAL HISTORY: ESRD on dialysis Tuesday, Tuesday and Tuesday via AV fistula at the left wrist Hypertension. Type 2 diabetes PE: GEN: 49yoM, NAD. HEENT: Normocephalic, atraumatic. Moist mucous membranes. CHEST: Regular rate and rhythm, +S1, +S2 LUNGS: Clear to auscultation bilaterally. ABD: Round, soft, non-tender, non-distended. EXT: Left fourth finger/tip of thumb necrosis noted. Erythema of the fourth finger and diffuse swelling but appears less than previous area of demarcation. LUE AVF with thrill noted, bandage in place. No lower extremity edema appreciated. NEURO: Alert and oriented x 3. No focal deficits appreciated. A&P: 1. Left fourth finger cellulitis and dry gangrene. Pt with LUE AVF with HD MWF as per Nephrology. IV Vanco/cefepime as per Med Svc. S/P Fistulogram 05/28/[address] Blair. AVF LUE with steal syndrome with retrograde filling of the radial artery via the ulnar artery into the palmar arch with continued filling of the digital arteries which were small. Arterial US LUE, vein mapping, CTA were requested and are reviewed with by Dr Blair with recommendation for ligation of AVF LUE, Permcath placement, and creation of AVF RUE 05/30/19 or 05/31/19. VS, I&O, 24H, Fishbone Vital Signs/I&O Vital Signs Date Time Temp Pulse Resp B/P (MAP) Pulse Ox O2 Delivery O2 Flow Rate FiO2 05/29/19 08:10 16 05/29/19 08:08 74 170/90 05/29/19 08:06 97.4 98 05/28/19 09:01 2 05/24/19 00:33 Room Air I&O- Last 24 Hours up to 6 AM 05/29/19 05:59 Intake Total 1520 ml Output Total 3000 ml Balance -1480 ml Laboratory Data 24H LABS Laboratory Tests 2 05/28/19 11:32: Bedside Glucose (Misc Panel) 239H 05/28/19 18:38: Bedside Glucose (Misc Panel) 138H 05/28/19 20:03: Bedside Glucose (Misc Panel) 378H 05/29/19 05:26: Nucleated Red Blood Cells % (auto) 0.0, Anion Gap 9, Glomerular Filtration Rate 10.9L, Blood Urea Nitrogen 26H, Creatinine 5.91H, Sodium Level 136, Potassium Level 4.4, Chloride Level 100, Carbon Dioxide Level 27, Calcium Level 8.9 CBC/BMP Laboratory Tests 05/29/19 05:26 Red Blood Count 3.23 L, Mean Corpuscular Volume 94.7, Mean Corpuscular Hemoglobin 31.6, Mean Corpuscular Hemoglobin Concent 33.3, Red Cell Distribution Width 12.0, Calcium Level 8.9 Microbiology Microbiology 05/23/19 Blood Culture - Final, Complete NO GROWTH AFTER 5 DAYS 05/23/19 Blood Culture - Final, Complete NO GROWTH AFTER 5 DAYS Attending Note Attending Note VASCULAR SURGICAL ATTENDING NOTE: Dr. Slade Blair M.D. ASSESSMENT: Patient has left fourth finger ulceration and gangrene as well as left first finger dry ulceration. Patient underwent a fistulogram an angiogram showing no obvious stenosis or occlusion in the arterial inflow to the left hand but the patient does have steal syndrome with flow into the autogenous left radiocephalic arteriovenous fistula through the ulnar artery and the palmar arch into the retrograde flow in the radial artery and into the fistula. PLAN: Patient will require ligation of the autogenous left radiocephalic arteriovenous fistula. Patient is not agreeable at this time and wants to consider his options and we will reevaluate in 24 hours to determine if he is okay with proceeding with ligation of the arteriovenous fistula. Randi Irizarry was the attending vascular surgeon for this patient encounter. The patient was seen, examined, interviewed and evaluated independently by Dr. Evelyn Blair M.D. was fully available during the consultation evaluation. All aspects of the patient interview, examination, medical decision making process, and medical care plan development were reviewed and approved by Dr. Evelyn Blair M.D. Dr. Evelyn Blair M.D. is aware and concurs with the plan as stated in the body of this note and will attest to such by his/her cosignature. Tiesha Mon May 29, 2019 09:24 Jarrett Blair MD Jun 07, 2019 14:02
[2019-05-29] MEDS: ACETAMINOPHEN TAB 650MG DOSE (2X325MG) PO PRN ×2 (11:04→17:20)
[2019-05-29 11:59] VITALS: BP 156/84
[2019-05-29] MEDS: **VANCO AFTER HD** MISC XX SCH (14:56)
--- NOTE | 2019-05-29 15:51 | IPNPDOC ---
Text Note Date of Service The patient was seen on 05/29/19. NOTE Subjective: -Left hand/finger pain continues to improve. -Reports poor sleep overnight -Asbestos Siding Mechanic at bedside and provided sign language Objective: VITAL SIGNS: Please see below. GENERAL: no acute distress, comfortably asleep on entry into room, awake on gentle tap, deaf HEENT: NC/AT, EOMI CARDIOVASCULAR: RRR, +S1S2, systolic murmur LUNGS: CTA B/L ABDOMEN: Soft and nontender on palpation Ext: LUE palpable thrill from AV fistula, fourth distal phalange of left hand necrotic with streaking extending to middle of PIP joint, mild edema, tender to palpation, patient reports improvement LABORATORY DATA: See below. IMAGING: MICROBIOLOGY: Please see below. ASSESSMENT: 43 yo deaf man with ESRD on HD MWF, hypertension, diabetes who was admitted for management of osteomyelitis affecting the left fourth distal phalanx. PLAN: #Osteomyelitis / gangrene left fourth distal phalanx: - vascular surg c/s appreciated; fistulogram shows steal syndrome, with retrograde filling of the radial artery via the ulnar artery into the palmar arch with continued filling of small digital arteries, vascular surgery currently planning ligation of AVF (LUE), Permcath placement, and creation of AVF RUE 05/30/19 or 05/31/19. - hand surgery c/s appreciated - outpatient follow up - continue IV Abx for now #Hypertension - clonidine 0.2 mg BID - continue norvasc, cozaar, metoprolol, hydralazine and labetalol prn #ESRD - HD M/W/F - nephrology c/s appreciated #anemia - in the setting of ESRD - aranesp started with HD # diabetes #DVT prophylaxix - mechanical Dispo: pending ligation of AVF (LUE), Permcath placement, and creation of AVF RUE 05/30/19 or 05/31/19. VS,Fishbone, I+O VS, Fishbone, I+O Laboratory Tests 05/29/19 05:26 Red Blood Count 3.23 L, Mean Corpuscular Volume 94.7, Mean Corpuscular Hemoglobin 31.6, Mean Corpuscular Hemoglobin Concent 33.3, Red Cell Distribution Width 12.0, Calcium Level 8.9 Vital Signs Date Time Temp Pulse Resp B/P (MAP) Pulse Ox O2 Delivery O2 Flow Rate FiO2 05/29/19 13:47 150/70 05/29/19 11:59 97.9 60 18 99 05/28/19 09:01 2 05/24/19 00:33 Room Air I&O- Last 24 Hours up to 6 AM 05/29/19 05:59 Intake Total 1520 ml Output Total 3000 ml Balance -1480 ml RONAK HILL MD May 29, 2019 15:51
[2019-05-29 15:59] VITALS: BP 142/84
[2019-05-29] MEDS: CEFEPIME HCL 1 GM in D5W MINI-BAG PLUS 50 ML IV SCH (17:19)
[2019-05-29 20:00] VITALS: BP 182/80
--- NOTE | 2019-05-29 20:30 | IPN ---
DATE: 05/29/2019 Mr. Morris is seen this morning on his bedside. He is somewhat upset about his left hand pain and ischemia in his left index finger. He underwent several procedures yesterday, including a fistulogram, ultrasound of his arteries of left arm and then a CT angiogram. He is being followed by Dr. Blair. The patient also had dialysis yesterday. He denies any dyspnea, chest pain, nausea, vomiting, fever, chills or headache. Electromechanical Equipment Tester is present who helped to interpret. PHYSICAL EXAMINATION: Temperature is 97.9 degrees Fahrenheit, heart rate 60 per minute and respiratory rate 18 per minute. Blood pressure 156/84 mmHg and oxygen saturation 99% on room air. Head is atraumatic. Neck is supple and without jugular venous distention (JVD) or thyroid enlargement. Heart sounds regular and lungs clear to auscultation. Abdomen: Soft and nontender. Bowel sounds are present. Extremities: Without any cyanosis or clubbing. Left index finger ischemic changes are essentially unchanged and erythema is improving. Today's labs show WBC count 12.0, hemoglobin 10.2 and hematocrit 30.6. Sodium 136, potassium 4.4, CO2 of 27, BUN 26 and creatinine 5.9. Glucose 223 and calcium 8.9. PROBLEMS: 1. End-stage renal disease. The patient was dialyzed yesterday and will schedule his next dialysis for tomorrow. There is no emergent indication for dialysis today. He did have a CT scan with IV contrast yesterday. However, his volume status is well compensated and there is no other risks. 2. Hypertension. His blood pressure has been reasonably well controlled on current antihypertensive medications and no changes are being made today. 3. Anemia. His anemia is stable and does not need any urgent intervention. The patient will continue to receive Aranesp. 4. Left index finger ischemia and gangrenous changes. The patient is being followed by vascular surgery. He is quite upset and I have explained to him that Dr. Blair has a plan to ligate the fistula and place a Perma-Cath and a new arteriovenous (AV) fistula creation. The patient does not wish to have a fistula in his right arm as this is his dominant arm. I have advised him to discuss with Dr. Blair.
[2019-05-30] VITALS (7 sets, daily range): BP systolic 124–190; BP diastolic 57–98
[2019-05-30] MEDS: ACETAMINOPHEN TAB 650MG DOSE (2X325MG) PO PRN ×2 (03:51→17:17)
[2019-05-30] MEDS: SLF 3 ML SYR IV SCH ×3 (05:08→21:54)
[2019-05-30] MEDS: MORPHINE 4 MG/ML 1ML VIAL/SYRINGE (J2270) IV PRN ×2 (05:33→13:09)
[2019-05-30] MEDS: **hydrALAZINE** 10 MG TAB PO SCH ×3 (05:34→21:53)
[2019-05-30 05:37] LABS: HEMATOCRIT 29.5 % (42.0-52.0); MEAN CORPUSCULAR HEMOGLOBIN 31.5 pg (27.0-33.0); MEAN CORPUSCULAR HGB CONC 33.9 g/dl (32.0-36.5); MEAN CORPUSCULAR VOLUME 93.1 fl (80.0-96.0); PLATELET COUNT, AUTOMATED 261 10^3/uL (150-450); RED BLOOD COUNT 3.17 10^6/uL (4.30-6.10); WHITE BLOOD COUNT 12.3 10^3/uL (4.0-10.0)
[2019-05-30 06:02] LABS: CALCIUM LEVEL 8.9 MG/DL (8.5-10.1); CREATININE FOR GFR 7.32 MG/DL (0.70-1.30); GLOMERULAR FILTRATION RATE 8.5 (>60)
[2019-05-30] MEDS: CYANOCOBALAMIN 500 MCG TAB PO SCH (07:48)
[2019-05-30] MEDS: PANTOPRAZOLE 40MG TAB (PROTONIX) PO SCH (07:48)
[2019-05-30] MEDS: SERTRALINE HCL 25 MG TABLET PO SCH (07:48)
[2019-05-30] MEDS: SUCROFERRIC OXYHYDROXIDE 500MG CHEW TAB (VELPHORO) PO SCH ×3 (07:48→17:17)
[2019-05-30] MEDS: HumaLOG INSULIN (NovoLOG) PER UNIT SC SCH ×4 (07:49→21:00)
[2019-05-30] MEDS: cloNIDine 0.2 MG TAB PO SCH ×2 (07:58→21:53)
[2019-05-30] MEDS: amLODIPine 5 MG TAB PO SCH (07:58)
[2019-05-30] MEDS: METOPROLOL TART 25 MG TABLET PO SCH ×2 (07:58→21:53)
[2019-05-30] MEDS: LOSARTAN 50 MG TAB PO SCH (07:58)
[2019-05-30 09:34] LABS: VANCOMYCIN RANDOM 20.1 UG/ML
--- NOTE | 2019-05-30 10:39 | IPNPDOC ---
Date Seen The patient was seen on 05/30/19. Progress Note Vascular Surgery. Dr Blair. HPI: 49year old M with h/o traumatic injury to his left fourth finger who now has cellulitis and dry gangrene of the finger, vascular surgery consulted. This pt is S/P fistulogram LUE as per Dr Blair, per Dr Blair pt with steal syndrome of LUE related to AVF. PAST MEDICAL/ SURGICAL HISTORY: ESRD on dialysis Tuesday, Tuesday and Tuesday via AV fistula at the left wrist Hypertension. Type 2 diabetes PE: GEN: 49yoM, NAD. HEENT: Normocephalic, atraumatic. Moist mucous membranes. CHEST: Regular rate and rhythm, +S1, +S2 LUNGS: Clear to auscultation bilaterally. ABD: Round, soft, non-tender, non-distended. EXT: Left fourth finger/tip of thumb necrosis noted. Erythema of the fourth finger and diffuse swelling but appears less than previous area of demarcation. LUE AVF with thrill noted, bandage in place. No lower extremity edema appreciated. NEURO: Alert and oriented x 3. No focal deficits appreciated. A&P: 1. Left fourth finger cellulitis and dry gangrene. Pt with LUE AVF with HD MWF as per Nephrology. IV Vanco/cefepime as per Med Svc. S/P Fistulogram 05/28/[address] Blair. AVF LUE with steal syndrome with retrograde filling of the radial artery via the ulnar artery into the palmar arch with continued filling of the digital arteries which were small. Arterial US LUE, vein mapping, CTA were requested and are reviewed with by Dr Blair with recommendation for ligation of AVF LUE, Permcath placement, and creation of AVF RUE 05/30/19 or 05/31/19. Discussed this plan with the pt this am and the pt is adamant he does not want AV fistula in the RUE. Relayed this to Dr Blair, Dr Blair to discuss options with the pt. VS, I&O, 24H, Fishbone Vital Signs/I&O Vital Signs Date Time Temp Pulse Resp B/P (MAP) Pulse Ox O2 Delivery O2 Flow Rate FiO2 05/30/19 08:00 97.0 64 18 125/57 (79) 97 05/28/19 09:01 2 05/24/19 00:33 Room Air I&O- Last 24 Hours up to 6 AM 05/30/19 06:00 Intake Total 1600 ml Output Total 0 ml Balance 1600 ml Laboratory Data 24H LABS Laboratory Tests 2 05/29/19 11:21: Bedside Glucose (Misc Panel) 305H 05/29/19 16:54: Bedside Glucose (Misc Panel) 223H 05/29/19 19:48: Bedside Glucose (Misc Panel) 252H 05/30/19 05:25: Nucleated Red Blood Cells % (auto) 0.0, Anion Gap 11, Glomerular Filtration Rate 8.5L, Blood Urea Nitrogen 43#H, Creatinine 7.32H, Sodium Level 136, Potassium Level 5.0, Chloride Level 100, Carbon Dioxide Level 25, Calcium Level 8.9, Random Vancomycin Level 20.1 CBC/BMP Laboratory Tests 05/30/19 05:25 Red Blood Count 3.17 L, Mean Corpuscular Volume 93.1, Mean Corpuscular Hemoglobin 31.5, Mean Corpuscular Hemoglobin Concent 33.9, Red Cell Distribution Width 12.2, Calcium Level 8.9 Microbiology Microbiology 05/23/19 Blood Culture - Final, Complete NO GROWTH AFTER 5 DAYS 05/23/19 Blood Culture - Final, Complete NO GROWTH AFTER 5 DAYS Attending Note Attending Note VASCULAR SURGICAL ATTENDING NOTE: Dr. Slade Blair M.D. ASSESSMENT: Patient is 49-year-old male with left hand ischemia of the first and fourth fingers with gangrene of the fourth finger and cellulitis of the left hand. Patient was evaluated and found to have steal syndrome was severely atherosclerotic small radial and ulnar arteries. Patient underwent a CT angiogr am which demonstrated no significant stenosis or occlusion in the subclavian artery, actually artery or brachial artery. PLAN: Recommendation is to undergo ligation of the left autogenous radiocephalic arteriovenous fistula for improved blood flow to the hand and healing of the cellulitis, left fourth finger gangrene and ulceration and left first finger dry ulcer. Patient is still unsure whether he wishes to proceed with ligation and wishes to consider his options overnight and will decide after discussing with his family the options of possible ligation of the arterial venous fistula. Pat ient has requested that if he does proceed with a ligation that a repeat angiogram be performed to confirm that there is no reversible stenotic or occlusive lesions in the arterial inflow to his left hand. aRndi Irizarry was the attending vascular surgeon for this patient encounter. The patient was seen, examined, interviewed and evaluated independently by Dr. Evelyn Blair M.D. Dr. Evelyn Blair M.D. was fully available during the consultation evaluation. All aspects of the patient interview, examination, medical decision making process, and medical care plan development were reviewed and approved by Dr. Evelyn Blair M.D. Dr. Evelyn Blair M.D. is aware and concurs with the plan as stated in the body of this note and will attest to such by his/her cosignature. Tiesha Mon May 30, 2019 10:39 Jarrett Blair MD Jun 07, 2019 14:05
[2019-05-30] MEDS: **VANCO AFTER HD** MISC XX SCH (16:00)
--- NOTE | 2019-05-30 16:27 | IPNPDOC ---
Text Note Date of Service The patient was seen on 05/30/19. NOTE Subjective: -Upset about the option for a R arm fistula, awaiting discussion with Dr. Blair -Tired from dialysis this AM -Reefer Truck Driver at bedside Objective: VITAL SIGNS: Please see below. GENERAL: no acute distress, deaf, lying awake in bed HEENT: NC/AT, EOMI CARDIOVASCULAR: RRR, +S1S2, systolic murmur LUNGS: CTA B/L ABDOMEN: Soft and nontender on palpation Ext: LUE palpable thrill from AV fistula, fourth distal phalange of left hand necrotic with streaking extending to periphery of finger without extension past the PIP joint with mild swelling, tender to palpation LABORATORY DATA: See below. IMAGING: No new imaging in the last 24h, otherwise reviewed. MICROBIOLOGY: Please see below. ASSESSMENT: 43 yo deaf man with ESRD on HD MWF, hypertension, diabetes who was admitted for management of osteomyelitis affecting the left fourth distal phalanx as well as management of medical comorbidities. PLAN: #Osteomyelitis / gangrene left fourth distal phalanx: - vascular surg c/s appreciated; fistulogram shows steal syndrome, with retrograde filling of the radial artery via the ulnar artery into the palmar arch with continued filling of small digital arteries, vascular surgery currently planning ligation of AVF (LUE), Permcath placement, and creation of AVF RUE, however patient adamant that he does not want a RUE fistula and still to discuss the final plan with Dr. Blair. - hand surgery c/s appreciated - outpatient follow up - continue IV Abx for now, to discuss definitive treatment #Hypertension - clonidine 0.2 mg BID - continue norvasc, cozaar, metoprolol, hydralazine and labetalol prn #ESRD - HD M/W/F - nephrology c/s appreciated #anemia - in the setting of ESRD - aranesp started with HD # diabetes -start detemir 10U QHS for persistent hyperglycemia in this patient who is on detemir as an outpatient that was held on admission -SSI -fingerstick AC/HS #DVT prophylaxix - mechanical Dispo: pending plan with vascular surgery and osteo treatment final plan for discharge planning VS,Fishbone, I+O VS, Fishbone, I+O Laboratory Tests 05/30/19 05:25 Red Blood Count 3.17 L, Mean Corpuscular Volume 93.1, Mean Corpuscular Hemoglobin 31.5, Mean Corpuscular Hemoglobin Concent 33.9, Red Cell Distribution Width 12.2, Calcium Level 8.9 Vital Signs Date Time Temp Pulse Resp B/P (MAP) Pulse Ox O2 Delivery O2 Flow Rate FiO2 05/30/19 13:55 20 05/30/19 13:18 150/78 05/30/19 13:05 97.1 79 100 05/28/19 09:01 2 05/24/19 00:33 Room Air I&O- Last 24 Hours up to 6 AM 05/30/19 06:00 Intake Total 1600 ml Output Total 0 ml Balance 1600 ml RONAK HILL MD May 30, 2019 16:27
[2019-05-30] MEDS: VANCOMYCIN HCL 1,000 MG, VIAL MATE ADAPTER 1 EACH in D5W 250 ML IV SCH (17:07)
[2019-05-30] MEDS: CEFEPIME HCL 1 GM in D5W MINI-BAG PLUS 50 ML IV SCH (18:43)
--- NOTE | 2019-05-30 19:09 | IPN ---
DATE: 05/30/2019 Mr. Morris is seen this morning during hemodialysis. His left forearm arteriovenous (AV) fistula is currently being used for dialysis. The patient has steal syndrome due to AV fistula and has developed ischemia of his left ring finger and gangrenous changes. Dr. Blair did a fistulogram and arterial ultrasound in addition to CT angiogram. The patient has been advised to get ligation of AV fistula and a new AV fistula created in his right arm; however, patient has declined it. He remains on intravenous (IV) antibiotics for cellulitis and infection of his ring finger. PHYSICAL EXAMINATION: Temperature 97 degrees Fahrenheit, heart rate 64 per minute, respiratory rate 18 per minute, blood pressure of 125/57 mm of mercury, and oxygen saturation 97%. His head is atraumatic. Neck is supple and without jugular venous distention (JVD) or thyroid enlargement. Heart sounds regular and lungs clear to auscultation. Abdomen soft and nontender. Bowel sounds normal. Extremities without any cyanosis or clubbing. Left ring finger is still slightly red and swollen. Gangrenous ischemic changes in the tip of the ring finger are essentially unchanged. Today's labs show WBC count 12.3, hemoglobin 10.0 and hematocrit 29.5. Platelets 261. Sodium 136, potassium 5.0, CO2 25, BUN 43 and creatinine 7.32. Random vancomycin level this morning is 20.1. PROBLEMS: 1. End-stage renal disease. The patient is currently being dialyzed, and he is tolerating dialysis treatment very well. 2. Hypertension. Blood pressure is generally well controlled with occasional high readings. Volume status is well-compensated. He will continue with current antihypertensive medications. 3. Anemia. His anemia has been stable, and no changes are being made today. He will receive weekly dose of Aranesp during dialysis. 4. Left hand cellulitis with ischemia of ring finger. The patient remains on cefepime, and cellulitis is improving. Unfortunately, he has developed steal symptoms due to AV fistula and will need ligation of his AV fistula. I have been informed that the patient has declined a new fistula in his right arm. I will defer any further discussions to Dr. Blair. The winder fixer was present at the time of this visit, who interpreted the communication back and forth.
[2019-05-30] MEDS: LEVEMIR (INSULIN DETEMIR) 1 UNITS/0.01ML SC SCH (21:53)
[2019-05-31] VITALS (10 sets, daily range): BP systolic 129–180; BP diastolic 47–78
[2019-05-31 05:30] LABS: MEAN CORPUSCULAR HEMOGLOBIN 31.5 pg (27.0-33.0); MEAN CORPUSCULAR HGB CONC 33.3 g/dl (32.0-36.5); MEAN CORPUSCULAR VOLUME 94.6 fl (80.0-96.0); PLATELET COUNT, AUTOMATED 269 10^3/uL (150-450); RED BLOOD COUNT 3.17 10^6/uL (4.30-6.10)
[2019-05-31 05:52] LABS: CALCIUM LEVEL 9.2 MG/DL (8.5-10.1); CREATININE FOR GFR 5.53 MG/DL (0.70-1.30); GLOMERULAR FILTRATION RATE 11.8 (>60); POTASSIUM SERUM 4.4 MEQ/L (3.5-5.1)
[2019-05-31] MEDS: SLF 3 ML SYR IV SCH ×3 (06:13→22:00)
[2019-05-31] MEDS: **hydrALAZINE** 10 MG TAB PO SCH ×3 (06:15→21:01)
[2019-05-31] MEDS: SUCROFERRIC OXYHYDROXIDE 500MG CHEW TAB (VELPHORO) PO SCH ×3 (07:30→17:23)
[2019-05-31] MEDS: HumaLOG INSULIN (NovoLOG) PER UNIT SC SCH ×4 (07:30→21:00)
[2019-05-31] MEDS: amLODIPine 5 MG TAB PO SCH (08:35)
[2019-05-31] MEDS: cloNIDine 0.2 MG TAB PO SCH ×2 (08:35→21:01)
[2019-05-31] MEDS: PANTOPRAZOLE 40MG TAB (PROTONIX) PO SCH (08:35)
[2019-05-31] MEDS: CYANOCOBALAMIN 500 MCG TAB PO SCH (08:35)
[2019-05-31] MEDS: METOPROLOL TART 25 MG TABLET PO SCH ×2 (08:35→21:01)
[2019-05-31] MEDS: SERTRALINE HCL 25 MG TABLET PO SCH (08:36)
[2019-05-31] MEDS: LOSARTAN 50 MG TAB PO SCH (08:36)
[2019-05-31] MEDS: MORPHINE 4 MG/ML 1ML VIAL/SYRINGE (J2270) IV PRN ×3 (08:37→21:02)
[2019-05-31] MEDS ORDERED: diphenhydrAMINE INJ 50MG/ML VIAL (J1200) As Ordered ONE (08:50)
[2019-05-31] MEDS ORDERED: LIDOCAINE 2% MDV 20 ML VIAL As Ordered ONE ×2 (08:50→09:50)
[2019-05-31] MEDS ORDERED: BUPIVACAINE HCL 0.5% 10 ML VIAL As Ordered ONE ×2 (08:50→09:50)
[2019-05-31] MEDS ORDERED: ISOVUE-300 61% 50ML VIAL (Q9967) As Ordered ONE (08:51)
[2019-05-31] MEDS ORDERED: HEPARIN 1,000 UNITS/ML 10ML VIAL (FOR RADIOLOGY& DIALYSIS ONLY) As Ordered ONE (09:04)
[2019-05-31] MEDS ORDERED: MIDAZOLAM INJ 2 MG/2 ML VIAL (J2250) As Ordered ONE ×2 (09:26→10:22)
[2019-05-31] MEDS ORDERED: fentaNYL 100 MCG/2 ML INJECTION (J3010) As Ordered ONE ×2 (09:26→10:22)
[2019-05-31 10:06] LABS: DOPAMINE PLASMA <30 pg/mL (0-48); NOREPINEPHRINE PLASMA 207 pg/mL (0-874)
--- NOTE | 2019-05-31 12:05 | ROOPDOC ---
[facility] Report Of Operation Report of Operation DATE OF PROCEDURE: 05/31/2019 PREPROCEDURE DIAGNOSES: End-stage renal disease requiring access for renal replacement therapy, left radiocephalic autogenous arteriovenous fistula with steal syndrome and left fourth and first finger ulceration and gangrene. POSTPROCEDURE DIAGNOSES: End-stage renal disease requiring access for renal replacement therapy, left radiocephalic autogenous arteriovenous fistula with steal syndrome and left fourth and first finger ulceration and gangrene. PROCEDURE: Ultrasound guided right internal jugular vein cannulation. Fluoroscopic guided right internal jugular vein 19 cm tip to cuff tunneled central venous catheter insertion. ATTENDING SURGEON: DR. Slade Blair M.D. CLASSIFIED AD CLERK: Yon Cabrera INDICATION:Patient is an 49-year-old male who has renal failure who requires access for renal replacement therapy. Patient has a left fourth finger ulcer and gangrene at the tip with cellulitis of the left hand as well as a small ulcer on the left first finger. Patient has a left radiocephalic autogenous arteriovenous fistula and underwent angiogram and fistulogram which showed steal syndrome with retrograde filling of the radial artery via the palmar arch and ulnar artery with minimal flow into the digits. Patient had no other disease in the subclavian artery actually artery brachial artery or radial or ulnar arteries. The radial and ulnar arteries are small and calcified but no significant stenosis or occlusion was noted. Patient will require ligation of the arteriovenous fistula for salvation of his left hand and fingers. Patient will require tunneled central venous catheter for access for hemodialysis until a new permanent dialysis access is created. Patient will undergo ultrasound and fluoroscopic guided placement of a right internal jugular vein tunneled central venous catheter. The procedure was described and explained to the patient in detail including drawing of pictures demonstrating the procedure and anatomy. Risks, benefits and alternative treatment options were discussed with the patient. Alternative treatment options included but were not limited to no intervention. Benefits included but were not limited to access for hemodialysis until permanent access for renal replacement therapy is created. Risks included, but were not limited to infection, bleeding, pneumothorax, hemothorax, cannulation site deep venous thrombosis, possible need for open surgical intervention, allergic reaction or complication from prepping and draping materials, possible need for transfusion of blood products, anesthetic complications, cerebrovascular accident, myocardial infarction, pulmonary embolus, deep venous thrombosis, loss of limb, loss of life, poor satisfaction and poor outcome. Risks of not performing the procedure included but were not limited to inability to obtain renal replacement therapy via hemodialysis and . The patient's questions were answered. The patient voices understanding of these risks, benefits and alternative treatment options. The patient voices acceptance of the risks associated with the procedure and agrees to proceed with an ultrasound and fluoroscopic guided right internal jugular vein tunneled central venous catheter insertion. There were no promises or guarantees made to the patient regarding the outcome or results of the procedure. ANESTHESIA: Local with sedation with 2 mg of Versed, 100 g of fentanyl, 50 mg of Benadryl and 13 mL of 2% lidocaine mixed with 0.5% Marcaine. SEDATION TIME: 10:05 AM to 10:54 AM for a total of 49 minutes. The sedation was administered by the registered nurse in the room. The cardiopulmonary monitoring during sedation was performed by the registered nurse in the room. Administration of sedation and cardiopulmonary monitoring were performed under my direct supervision and direction. I was present for and directed the entire case. There were no sedation related complications. Patient was stable post sedation and returned to pre-sedation status. EBL: 5 ml. IVF: 100 ml. FLUORO TIME: 0.1 minutes. CONTRAST: None. COMPLICATIONS: None. DRAINS: None. SPECIMENS: None. IMPLANTS: Right internal jugular vein tunneled central venous catheter with use of a 19 cm tip to cuff [place] hemodialysis catheter. DESCRIPTION OF PROCEDURE: Patient was taken to the angiography suite, placed supine on the angiography room table and then prepped and draped in a standard surgical fashion. A timeout was conducted by myself and the team members in the room confirming the correct patient, procedure and laterality. Ultrasound guidance was used to cannulate the right internal jugular vein using a micropuncture needle after anesthetizing the overlying skin and subcutaneous tissue with 2% lidocaine mixed with 0.5% Marcaine. The cannulation of the right internal jugular vein was performed with real-time concurrent visualization of the entry of the micropuncture needle into the right internal jugular vein with a hardcopy image preserved. The ultrasound showed the right internal jugular vein to be widely patent, easily compressible and free of thrombus. The micropuncture wire was advanced through the micropuncture needle which was upsized to a micropuncture sheath. An Amplatz wire was advanced through the micropuncture sheath which was then used to sequentially dilate the right internal jugular vein under fluoroscopic guidance. An introducer sheath was then placed over the Amplatz wire and the wire was removed. The catheter was tunneled through a puncture wound in the right chest after anesthetizing the overlying skin and subcutaneous tissue with 2% lidocaine mixed with 0.5% Marcaine and brought out through a puncture wound at the right internal jugular vein entry site. The catheter was then advanced through the introducer sheath which had been positioned under fluoroscopic guidance. The catheter was positioned under fluoroscopic guidance with the tip in the superior vena cava right atrial junction. Both ports of the catheter were aspirated, noted to aspirate easily and then flushed with heparinized saline. The catheter was secured to the right anterior chest wall using #2-0 Prolene suture after anesthetizing the overlying skin and subcutaneous tissue with 2% lidocaine mixed with 0.5% Marcaine. The puncture wound in the right neck was closed using #4-0 Monocryl in inverted interrupted fashion. Steri-Strips and dressings were applied. The patient tolerated the procedure well. All instrument, sponge and needle counts were correct at the end of the case. There were no complications. Dr. Blair was present for and directed the entire case. Patient was transferred to the recovery area and subsequently to the PCU in stable condition. The tunneled central venous catheter is stable for use for hemodialysis access. RADIOLOGIC SUPERVISION AND INTERPRETATION: The initial ultrasound showed the right internal jugular vein to be easily compressible, widely patent and free of thrombus. Ultrasound was used to guide cannulation of the right internal jugular vein with real-time concurrent visualization of the entry of the needle into the right internal jugular vein with a hardcopy image preserved. Fluoroscopic guidance was then used to sequentially dilate the right internal jugular vein, place an introducer sheath and position the catheter with the tip in the superior vena cava/right atrial junction. Final fluoroscopic image showed the catheter to be in good position and good alignment with no pneumo- or hemothorax noted with the tip in the superior vena cava/right atrial junction. The tunneled central venous catheter is stable for use for hemodialysis access. Jarrett Blair MD May 31, 2019 12:05
[2019-05-31 16:19] LABS: C REACTIVE PROTEIN QUANTITATIV 4.71 MG/DL (0.00-0.30)
--- NOTE | 2019-05-31 17:44 | REP ---
Soft tissue sonography left hand: History: Soft tissue swelling in the palmar soft tissues of the distal hand. Rule out abscess or tenosynovitis. Comparison radiographs May 23, 2019. History of necrosis of the long finger and significant swelling. Sonographic findings: Scanning in the area of the swelling of the palm shows complex fluid collection measuring 1.8 x 1.7 x 1.2 cm in the palmar soft tissues between the level of the second and third metacarpals. This is a triangular shaped collection. There is independent motion of its contents consistent with complex fluid such as abscess. There is a second smaller collection of complex fluid measuring 0.5 x 0.3 x 0.7 cm at the palmar aspect of the soft tissues over the distal end of the fourth metacarpal. Impression: Findings suggestive of abscess in the palmar soft tissues as above. Electronically Signed by Tam Leon MD 05/31/2019 06:20 P
[2019-05-31] MEDS: MEROPENEM INJ 500 MG in APPROPRIATE DILUENT 1 EA IV SCH (18:26)
[2019-05-31] MEDS: LEVEMIR (INSULIN DETEMIR) 1 UNITS/0.01ML SC SCH (21:09)
--- NOTE | 2019-05-31 23:53 | CR ---
DATE OF CONSULTATION: 05/31/2019 CONSULTING PHYSICIAN: Dr. Lind REASON FOR CONSULTATION: Left hand cellulitis/osteomyelitis. HISTORY OF PRESENT ILLNESS: This is a 49-year-old male with a pertinent past medical history of end-stage renal disease, diabetes who presented to the emergency room (ER) on 05/23/2019 for left finger discoloration. He was in a dialysis clinic and while he was there, he had swelling of the left hand and left lower arm. He admitted to having some discomfort that he describes as throbbing in sensation, which he used to Tylenol and provided relief. He states that 4 weeks ago, he was able to make a fist and now he is unable to make a fist and a significant amount of pain. He did notice that there was a blister on his left 4th finger that he started to pick on and now the blister has burst. When he was admitted, he was started on vancomycin and cefepime. He denies having any fevers, chills, night sweats, any other joint pain. Since he has been admitted, he was evaluated by Dr. Blair who believes that his arteriovenous (AV) fistula on his left side was complicated by steal syndrome and it had to be reversed. This was done earlier this afternoon. When I examined the patient, he states that now his finger is more throbbing in nature, the intensity has increased from 5 to 10 out of 10. He now needs morphine for pain relief but originally he could have taken Tylenol. He was evaluated by an orthopedic surgeon who states that the finger needs to demarcate well, and he can followup outpatient. During the whole examination, an cop and his mother was there during the whole examination to provide the history. PAST MEDICAL HISTORY: 1. End-stage renal disease, on dialysis on Tuesday, Tuesday, Tuesday. Currently with a port, placed today on the right chest wall. 2. Hypertension. 3. Type 2 diabetes. 4. Deaf. SOCIAL HISTORY: Does not smoke, does not drink alcohol. Currently with two kids. FAMILY HISTORY: History of ALS, smoking, hypertension, and stroke, myocardial infarction ([place]) and vasculpath. ALLERGIES: PENICILLIN, BACITRACIN, NEOMYCIN and POLYMYXIN B. HOME MEDICATIONS: - vitamin D3 - clonidine - vitamin B12 - folic acid - vitamin B complex - glipizide - Levemir - NovoLog - losartan - metoprolol - pantoprazole - rosuvastatin - sertraline - Velphoro - vancomycin PHYSICAL EXAMINATION: VITAL SIGNS: Temperature 97.5, pulse 73, respirations 22, blood pressure 147/60 (89), pulse oximetry 99% on room air. GENERAL: This is a very pleasant 49-year-old male laying comfortably in his bed. Does not appear in acute distress. Appropriately signing language, is deaf, with cop. HEENT: Atraumatic, normocephalic. Pupils are equal, round, and reactive. No jugular venous distention (JVD) is noted. CARDIOVASCULAR: Regular rate and rhythm. Positive S1, S2 sounds with a slight 1/6 systolic murmur at the left intercostal space with no radiation to the carotids. ABDOMEN: Soft, nontender. Positive bowel sounds in all four quadrants. Obese abdomen. EXTREMITIES: No lower extremity edema. Distal tips of the toes bilaterally shows blisters at the end with poor nail health. 1+ pedal pulses. Right hand: tenderness at the right antecubital joint secondary to an old IV site with an indurated infiltrate. Left hand: Normal range of motion at the elbow and wrist, unable to make a fist. Tenderness on palpation in the 3rd, 4th and 5th metacarpophalangeal (MCP) joints. Swelling appreciated on the 4th digit all the way to the distal interphalangeal (DIP) joint. Dry gangrenous changes at the distal phalanx, foul smelling with a little bit of blood on the medial aspect of the finger. 2+ pulses bilaterally. LABORATORY: WBC 12.0, hemoglobin 10.0, hematocrit 30.0, platelets 269. Chemistry: Sodium 135, potassium 4.4, chloride 100, carbon dioxide 28, anion gap 7, BUN 28, creatinine 5.53, fasting glucose 176, calcium 9.2, CRP is 4.71, which came down from 8.90. Hand x-ray from 05/24/2019 shows osseous and soft tissue changes involving the 4th digit, suggesting osteomyelitis. Upper extremity CTA shows no occlusion or significant stenosis in the field of view with a documented impression. CT angio of the chest on 05/28/2019 shows mild cardiomegaly. Thoracic aorta and its major branches are intact without aneurysm, stenosis, dissection or occlusion. Negative for pulmonary embolism and negative for acute pulmonary processes. Microbiology: Blood cultures two negative for growth. ANTIBIOTICS: Vancomycin since 05/24/2019 and cefepime since 05/23/2019. IMPRESSION AND PLAN: This is a 49-year-old male with a pertinent history of diabetes, end-stage renal disease on hemodialysis, who presented to the ER for worsening left hand pain. His physical exam today is concerning for he does have limited range of motion on flexion at the MCP joint due to pain. There is significant swelling of the 4th digit even though they say it is improved. The distal phalanx is necrotic; it is foul smelling as well. He is currently on vancomycin and cefepime since admission. X-ray on admission did suggest possible osteomyelitis. I am more concerned for tenosynovitis or an abscess in the 3rd, 4th and 5th left MCP joint. These are the following recommendations. PLAN: Discontinue the cefepime and start meropenem for anaerobic coverage. The patient is allergic to penicillin. Repeat CRP to see if it is down trending. Discuss case with radiology and recommend ultrasound of the left 3rd, 4th and 5th MCP joints to rule out an abscess. Depending on the results of the ultrasound, will consider if the patient needs any de-escalation of antibiotics or if the patient needs to be transferred to be evaluated by a hand surgeon. UNRULY
--- NOTE | 2019-05-31 23:59 | IPNPDOC ---
Text Note Date of Service The patient was seen on 05/31/19. NOTE Subjective: -Hand is painful -Fiscal Assistant at bedside Objective: VITAL SIGNS: Please see below. GENERAL: no acute distress, deaf, lying awake in bed HEENT: NC/AT, EOMI CARDIOVASCULAR: RRR, +S1S2, systolic murmur LUNGS: CTA B/L ABDOMEN: Soft and nontender on palpation Ext: LUE palpable thrill from AV fistula, fourth distal phalange of left hand necrotic with streaking extending to periphery of finger without extension past the PIP joint with mild swelling, tender to palpation LABORATORY DATA: See below. IMAGING: Soft tissue hand ultrasound, left Findings suggestive of abscess in the palmar soft tissues as above. MICROBIOLOGY: Please see below. ASSESSMENT: 43 yo deaf man with ESRD on HD MWF, hypertension, diabetes who was admitted for management of osteomyelitis affecting the left fourth distal phalanx as well as management of medical comorbidities. PLAN: #Osteomyelitis / gangrene left fourth distal phalanx: - vascular surg c/s appreciated; fistulogram shows steal syndrome, with retrograde filling of the radial artery via the ulnar artery into the palmar arch with continued filling of small digital arteries, vascular surgery currently planning ligation of AVF (LUE), Permcath placement, and creation of AVF RUE, however patient adamant that he does not want a RUE fistula and still to discuss the final plan with Dr. Blair. - hand surgery c/s appreciated - outpatient follow up - In the meantime the hand status is not improving or changing, and the patient would have to be discharged without a known source. I therefore consulted ID that suggested a hand ultrasound to rule out a deep abscess that was found as noted above. - ID also suggested broadening to cover anerobes, appreciate recs - switched cefepime to meropenem #Hypertension - clonidine 0.2 mg BID - continue norvasc, cozaar, metoprolol, hydralazine and labetalol prn #ESRD - HD M/W/F - nephrology c/s appreciated #anemia - in the setting of ESRD - aranesp started with HD # diabetes -start detemir 10U QHS for persistent hyperglycemia in this patient who is on detemir as an outpatient that was held on admission -SSI -fingerstick AC/HS #DVT prophylaxix - mechanical Dispo: pending plan with vascular surgery and osteo treatment final plan for discharge planning VS,Fishbone, I+O VS, Fishbone, I+O Laboratory Tests 05/31/19 05:13 Red Blood Count 3.17 L, Mean Corpuscular Volume 94.6, Mean Corpuscular Hemoglobin 31.5, Mean Corpuscular Hemoglobin Concent 33.3, Red Cell Distribution Width 12.4, Calcium Level 9.2 Vital Signs Date Time Temp Pulse Resp B/P (MAP) Pulse Ox O2 Delivery O2 Flow Rate FiO2 05/31/19 21:45 16 05/31/19 21:01 138/65 05/31/19 20:00 97.1 71 96 05/31/19 11:00 2 I&O- Last 24 Hours up to 6 AM 05/31/19 06:00 Intake Total 800 ml Output Total 3000 ml Balance -2200 ml RONAK HILL MD May 31, 2019 23:59
[2019-06-01] VITALS (7 sets, daily range): BP systolic 140–215; BP diastolic 76–115
[2019-06-01] MEDS: MORPHINE 4 MG/ML 1ML VIAL/SYRINGE (J2270) IV PRN ×4 (03:26→22:22)
[2019-06-01 06:13] LABS: CALCIUM LEVEL 8.8 MG/DL (8.5-10.1); CREATININE FOR GFR 7.29 MG/DL (0.70-1.30); GLOMERULAR FILTRATION RATE 8.6 (>60); POTASSIUM SERUM 4.9 MEQ/L (3.5-5.1)
[2019-06-01] MEDS: SLF 3 ML SYR IV SCH ×3 (06:21→20:50)
[2019-06-01] MEDS: **hydrALAZINE** 10 MG TAB PO SCH ×3 (06:21→20:50)
[2019-06-01 06:35] LABS: HEMATOCRIT 30.2 % (42.0-52.0); HEMOGLOBIN 9.9 g/dl (13.5-17.5); MEAN CORPUSCULAR HEMOGLOBIN 31.3 pg (27.0-33.0); MEAN CORPUSCULAR HGB CONC 32.8 g/dl (32.0-36.5); MEAN CORPUSCULAR VOLUME 95.6 fl (80.0-96.0); PLATELET COUNT, AUTOMATED 261 10^3/uL (150-450); RED BLOOD COUNT 3.16 10^6/uL (4.30-6.10); WHITE BLOOD COUNT 11.5 10^3/uL (4.0-10.0)
[2019-06-01] MEDS: HumaLOG INSULIN (NovoLOG) PER UNIT SC SCH ×4 (08:09→21:21)
[2019-06-01] MEDS: PANTOPRAZOLE 40MG TAB (PROTONIX) PO SCH (08:10)
[2019-06-01] MEDS: LOSARTAN 50 MG TAB PO SCH (08:10)
[2019-06-01] MEDS: CYANOCOBALAMIN 500 MCG TAB PO SCH (08:10)
[2019-06-01] MEDS: SERTRALINE HCL 25 MG TABLET PO SCH (08:10)
[2019-06-01] MEDS: METOPROLOL TART 25 MG TABLET PO SCH ×2 (08:10→20:50)
[2019-06-01] MEDS: amLODIPine 5 MG TAB PO SCH (08:11)
[2019-06-01] MEDS: cloNIDine 0.2 MG TAB PO SCH ×2 (08:11→20:49)
[2019-06-01 08:30] LABS: C REACTIVE PROTEIN QUANTITATIV 4.37 MG/DL (0.00-0.30); VANCOMYCIN RANDOM 22.3 UG/ML
--- NOTE | 2019-06-01 08:42 | PHACANCOPD ---
PHARMACY VANCOMYCIN DOSING Pt Demographics Demographics Patient Age:49 , Weight:123.000 , Gender: male Adjusted Body Weight Date: 05/24/19, Adjusted Body Weight: [102.5] Kg Events Past 24 Hours Events Past 24 Hours: YES: Dialysis; NO: Diuretic Therapy, Change in CrCl, Fever, Elevation in WBC, Pending Diagnostics, Pending Procedures, Other Vancomycin Vancomycin indication: SSTI/L.HAND INFECTION/OSTEO Vancomycin Target Ranges: 15-20 mcg/ml Vancomycin Load Y/N: No Load Dose Date Time Vancomycin Load Dose: Date: Time: Vancomycin Dose Date: 05/24/19. Current Vancomycin Dose: [750MG HD ON -] Intermittent Dosing?: No Labs Labs Item Value Date Time White Blood Count 12.0 10^3/uL H 05/31/19 05 White Blood Count 11.5 10^3/uL H 06/01/19 0534 White Blood Count 12.3 10^3/uL H 05/30/19 0525 Creatinine 7.32 MG/DL H 05/30/19 0525 Creatinine 5.53 MG/DL H 05/31/19 05 Creatinine 7.29 MG/DL H 06/01/19 0534 C-Reactive Protein, Quantitative 4.71 MG/DL H 05/31/19 05 C-Reactive Protein, Quantitative 4.37 MG/DL H 06/01/19 0534 Random Vancomycin Level 22.3 UG/ML 06/01/19 0534 Micro Microbiology 05/23/19 Blood Culture - Final, Complete NO GROWTH AFTER 5 DAYS 05/23/19 Blood Culture - Final, Complete NO GROWTH AFTER 5 DAYS Creatinine Clearance Date:05/24/19. Creatinine Clearance: [14.8] Assessment and Plan Maintaining Current Dose?: No Reason for dose change: Trough too high Pharmacist Note Pharmacist Note 06/01/19- Random this morning resulted at 22.4mcg/ml. With SCr= 7.29 and CrCl= 14.8, the maintenance dose was changed to 750mg after HD. Will continue to mo nitor and adjust dose as needed. 05/24/19: Random this AM resulted at 12.7mcg/ml. I have ordered an additional 500mg dose for today to bring the patient into therapeutic range. We will continue to monitor and adjust dose as needed. Date: 05/24/19. Pharmacist note:Patient admitted following dialysis last evening.Has necrotic lefthand/SSTI/osteomyelitis.SCR=3.79,CRCL=34.6,75",19.54 KG(cjc=044.5 KG)Allergies: PCN,Neosporin.Rx with Cefepime Q12H and Vancomycin administered post dialysis on mon-Tue-Tue. Random level is ordered for this morning-Will contnue to follow LOGAN BARTON, PHARMACY Jun 01, 2019 08:42
[2019-06-01] MEDS: SUCROFERRIC OXYHYDROXIDE 500MG CHEW TAB (VELPHORO) PO SCH ×3 (09:00→17:37)
[2019-06-01] MEDS ORDERED: HEPARIN 1,000 UNITS/ML 10ML VIAL (FOR RADIOLOGY& DIALYSIS ONLY) XX ONE (11:00)
[2019-06-01] MEDS ORDERED: HEPARIN 1,000 UNITS/ML 10ML VIAL (FOR RADIOLOGY& DIALYSIS ONLY) IV ONE (11:00)
[2019-06-01] MEDS: **VANCO AFTER HD** MISC XX SCH (16:00)
[2019-06-01] MEDS ORDERED: VANCOMYCIN HCL 750 MG, VIAL MATE ADAPTER 1 EACH in D5W 250 ML IV SCH (18:00)
[2019-06-01] MEDS: MEROPENEM INJ 500 MG in APPROPRIATE DILUENT 1 EA IV SCH (18:36)
--- NOTE | 2019-06-01 18:45 | IPNPDOC ---
Text Note Date of Service The patient was seen on 06/01/19. NOTE Subjective: -Hand remains painful and swollen -Semiconductor Lab Technician and his mother were at bedside Objective: VITAL SIGNS: Please see below. GENERAL: no acute distress, deaf, lying awake in bed HEENT: NC/AT, EOMI CARDIOVASCULAR: RRR, +S1S2, systolic murmur LUNGS: CTA B/L ABDOMEN: Soft and nontender on palpation Ext: LUE palpable thrill from AV fistula, fourth distal phalange of left hand necrotic with streaking extending to periphery of finger without extension past the PIP joint with significant swelling, tender to palpation with some dried oozing fluid at the tip of the necrotic finger LABORATORY DATA: See below. IMAGING: Soft tissue hand ultrasound, left Findings suggestive of abscess in the palmar soft tissues as above. MICROBIOLOGY: Please see below. ASSESSMENT: 43 yo deaf man with ESRD on HD MWF, hypertension, diabetes who was admitted for management of osteomyelitis affecting the left fourth distal phalanx as well as management of medical comorbidities now found to have not only have osteomyelitis but also 2 complex fluid collections in the hand c/w abscesses who is now pending surgery with Dr. Le tomorrow for drainage and washout as well as digit amputation. In the interim, he was also seen by ID that broadened his antibiotics to meropenem. PLAN: #Osteomyelitis / gangrene left fourth distal phalanx with hand abscesses: - Orthopedic surgery c/s appreciated - Dr. Le will be doing a wash out tomorrow of the abscesses as well as the gangrenous digit amputation. - ID broadened to cover anerobes, appreciate recs, continue meropenem - vascular surg c/s appreciated; fistulogram shows steal syndrome, with retrograde filling of the radial artery via the ulnar artery into the palmar arch with continued filling of small digital arteries, vascular surgery currently planning ligation of AVF (LUE), Permcath placement, and creation of AVF RUE, however patient adamant that he does not want a RUE fistula and still to discuss the final plan with Dr. Blair. #Hypertension - clonidine 0.2 mg BID - continue norvasc, cozaar, metoprolol, hydralazine and labetalol prn #ESRD - HD M/W/F - nephrology c/s appreciated #anemia - in the setting of ESRD - aranesp started with HD # diabetes -continue detemir 10U QHS for persistent hyperglycemia in this patient who is on detemir as an outpatient that was held on admission -SSI -fingerstick AC/HS #DVT prophylaxis - mechanical Dispo: Has hand abscess washout and digit amputation scheduled for tomorrow. VS,Fishbone, I+O VS, Fishbone, I+O Laboratory Tests 06/01/19 05:34 Red Blood Count 3.16 L, Mean Corpuscular Volume 95.6, Mean Corpuscular Hemo globin 31.3, Mean Corpuscular Hemoglobin Concent 32.8, Red Cell Distribution Width 12.6, Calcium Level 8.8 Vital Signs Date Time Temp Pulse Resp B/P (MAP) Pulse Ox O2 Delivery O2 Flow Rate FiO2 06/01/19 16:35 18 06/01/19 13:51 164/84 06/01/19 13:48 97.9 68 98 05/31/19 11:00 2 I&O- Last 24 Hours up to 6 AM 06/01/19 06:00 Intake Total 420 ml Output Total 0 ml Balance 420 ml RONAK HILL MD Jun 01, 2019 18:45
--- NOTE | 2019-06-01 18:54 | IPN ---
DATE: 06/01/2019 I was called back once again to evaluate the patient, Miquel Morris, for his left ring finger necrosis. He has still been in the hospital for a number other issues isolated from his left ring finger apparently. I had seen him earlier in the week and stated that I could followup as an outpatient. However, due to continued swelling and erythema surrounding the area, infectious disease and the medicine team felt it necessary to order an ultrasound which identified two very small abscesses in the palm and they reconsulted me for evaluation of this. The patient states he has maintained mild to moderate pain at most. He is concerned that he just wants to go home and feels that the other services will not let him leave unless we take care of this sooner. He states the pain is made worse with movement and alleviated with rest. He denies any fever, chills, nausea, or vomiting. VITAL SIGNS: The patient has been entirely afebrile during his visit here. White count has been at maximum at 12.9, otherwise not elevated. PHYSICAL EXAMINATION: The patient has necrosis of the ring finger entirely to his left distal interphalangeal (DIP) joint and erythema extending proximately into his palm. This is completely unchanged, if anything there is more necrotic area distally. He has limited range of motion due to swelling and pain, mild tenderness to palpation of the palm, otherwise skin is intact. Radial pulse intact. Sensation intact to light touch. IMAGING STUDIES: I reviewed the x-ray previously that demonstrates significant degeneration of that distal phalanx. He also has an ultrasound that shows two small collections in his palm concerning for an abscess. DIAGNOSIS: The patient has left necrotic finger with associated cellulitis. Once again, I discussed with the patient at length saying that I do truly believe that this is something that can be managed as an outpatient. He should be discharged on oral antibiotics or IV if infectious diseases feels that is necessary. We will monitor for full demarcation prior to any surgical intervention. However, given his frustration with the whole environment he is currently in, I did offer him surgery for tomorrow morning which would involve an irrigation and debridement of the hand along with a long bone incision leading to an amputation likely at the proximal interphalangeal (PIP) level of that ring finger. I did state that if we choose this route there is a very high probability that he will have to have future surgery due to the fact that I do not think it is fully demarcating and I can not actively predict the level and only time will tell. After our further discussion, the patient decided to proceed with surgery. Therefore, consent was obtained for a left palm irrigation, debridement, and finger amputation of the middle finger of the left hand. The risks and benefits were discussed including but not limited to infection, need for further surgery, and damage to surrounding structures. Please make the patient nothing by mouth at midnight and continue IV antibiotics. We will take cultures in the operating room (OR) that can help them narrow down per infectious disease for IV antibiotics. Otherwise, we will see him tomorrow morning for operative intervention.
[2019-06-01] MEDS: LABETALOL HCL 100 MG/20 ML VIAL IV PRN (20:49)
[2019-06-01] MEDS: LEVEMIR (INSULIN DETEMIR) 1 UNITS/0.01ML SC SCH (20:50)
--- NOTE | 2019-06-01 22:08 | IPN ---
DATE: 06/01/2019 Mr. Morris is seen during hemodialysis this morning. His left hand ring finger and adjacent area of the palm remains swollen. He is afebrile and has been on antibiotics. She had an ultrasound of his hand done and was noticed to have two small abscesses. He is being followed by Dr. Casiano for infectious disease. His left forearm AV fistula was ligated and Perma-Cath was placed yesterday which is being used for dialysis today. PHYSICAL EXAMINATION Temperature 97.8 degrees Fahrenheit, heart rate 68 per minute and respiratory rate 16 per minute. Blood pressure 150/78 mmHg and oxygen saturation 98% on room air. His head is atraumatic. Neck is supple and without JVD or thyroid enlargement. Heart: Sounds are regular and lungs clear to auscultation. Abdomen: Soft and nontender and bowel sounds are normal. Extremities: Without any cyanosis or clubbing. Left hand ring finger remains swollen with minimal bloody drainage and gangrenous change at the tip. LABS: Today's labs show WBC count 11.5, hemoglobin 9.9 and hematocrit 30.2. Platelets 251. Sodium 137, potassium 4.9, CO2 25, BUN 43 and creatinine 7.29. C-reactive protein is 4.37. Vancomycin level is 22.3. PROBLEMS 1. End-stage renal disease. The patient is being dialyzed today and he is tolerating his dialysis treatment well. 2. Hypertension. Blood pressure control has been reasonable and current antihypertensives are appropriate. No changes are being made today. 3. Anemia. His anemia is stable at this point and he will continue to receive 200 mcg of Aranesp once a week. 4. Left hand cellulitis and abscesses with ischemia of his ring finger. The patient had ligation of AV fistula done due to steal symptoms in his hand. He remains on antibiotics and is being followed by infectious disease. He is likely to require surgical intervention of left hand abscess and gangrenous ring finger.
[2019-06-02] VITALS (15 sets, daily range): BP systolic 132–195; BP diastolic 58–96; O2SAT 92–98
[2019-06-02] MEDS: MORPHINE 4 MG/ML 1ML VIAL/SYRINGE (J2270) IV PRN ×2 (04:30→14:56)
[2019-06-02] MEDS: **hydrALAZINE** 10 MG TAB PO SCH ×3 (05:43→21:47)
[2019-06-02 05:54] LABS: HEMATOCRIT 30.5 % (42.0-52.0); HEMOGLOBIN 10.1 g/dl (13.5-17.5); MEAN CORPUSCULAR HEMOGLOBIN 30.7 pg (27.0-33.0); MEAN CORPUSCULAR HGB CONC 33.1 g/dl (32.0-36.5); MEAN CORPUSCULAR VOLUME 92.7 fl (80.0-96.0); PLATELET COUNT, AUTOMATED 265 10^3/uL (150-450); RED BLOOD COUNT 3.29 10^6/uL (4.30-6.10); WHITE BLOOD COUNT 10.7 10^3/uL (4.0-10.0)
[2019-06-02] MEDS: SLF 3 ML SYR IV SCH ×3 (06:00→22:00)
[2019-06-02 06:14] LABS: CALCIUM LEVEL 8.8 MG/DL (8.5-10.1); CREATININE FOR GFR 5.98 MG/DL (0.70-1.30); GLOMERULAR FILTRATION RATE 10.8 (>60); POTASSIUM SERUM 4.4 MEQ/L (3.5-5.1)
[2019-06-02] MEDS: SUCROFERRIC OXYHYDROXIDE 500MG CHEW TAB (VELPHORO) PO SCH ×3 (07:30→18:46)
[2019-06-02] MEDS: HumaLOG INSULIN (NovoLOG) PER UNIT SC SCH ×4 (08:42→21:54)
[2019-06-02] MEDS: PANTOPRAZOLE 40MG TAB (PROTONIX) PO SCH (08:42)
[2019-06-02] MEDS: CYANOCOBALAMIN 500 MCG TAB PO SCH (08:42)
[2019-06-02] MEDS: SERTRALINE HCL 25 MG TABLET PO SCH (08:43)
[2019-06-02] MEDS: amLODIPine 5 MG TAB PO SCH (08:43)
[2019-06-02] MEDS: cloNIDine 0.2 MG TAB PO SCH ×2 (08:43→21:48)
[2019-06-02] MEDS: METOPROLOL TART 25 MG TABLET PO SCH ×2 (08:44→21:47)
[2019-06-02] MEDS: LOSARTAN 50 MG TAB PO SCH (08:44)
[2019-06-02] MEDS: ACETAMINOPHEN TAB 650MG DOSE (2X325MG) PO PRN (08:53)
[2019-06-02] MEDS ORDERED: MIDAZOLAM INJ 2 MG/2 ML VIAL (J2250) As Ordered ONE (09:22)
[2019-06-02] MEDS ORDERED: fentaNYL 100 MCG/2 ML INJECTION (J3010) As Ordered ONE (09:23)
[2019-06-02] MEDS ORDERED: KETOROLAC 60 MG/2 ML VIAL (J1885) As Ordered ONE (09:23)
[2019-06-02] MEDS ORDERED: ONDANSETRON 4MG/2ML VIAL (J2405) As Ordered ONE (09:23)
[2019-06-02] MEDS ORDERED: PROPOFOL 200 MG/20 ML VIAL As Ordered ONE (09:23)
[2019-06-02] MEDS ORDERED: dexameTHASONE 4 MG/ML 1ML VIAL (J1100) As Ordered ONE (09:23)
[2019-06-02] MEDS ORDERED: LIDOCAINE 2% INJ 100 MG/5 ML SDV (FOR ANES.) As Ordered ONE (09:23)
[2019-06-02] MEDS ORDERED: BUPIVACAINE HCL 0.25% 30 ML VIAL As Ordered ONE (11:19)
[2019-06-02] MEDS ORDERED: PERCOCET 5MG/325MG TAB PO PRN (12:45)
[2019-06-02] MEDS ORDERED: HYDROMORPHONE HCL 0.5 MG/ 0.5 ML SYRINGE (J1170 PER 1) IV PRN (12:45)
[2019-06-02] MEDS ORDERED: fentaNYL 100 MCG/2 ML INJECTION (J3010) IV PRN (12:45)
[2019-06-02] MEDS ORDERED: ONDANSETRON 4MG/2ML VIAL (J2405) IV PRN (12:45)
[2019-06-02] MEDS ORDERED: MORPHINE 4 MG/ML 1ML VIAL/SYRINGE (J2270) IV PRN (16:00)
[2019-06-02] MEDS: **VANCO AFTER HD** MISC XX SCH (16:00)
--- NOTE | 2019-06-02 18:38 | IPNPDOC ---
Text Note Date of Service The patient was seen on 06/02/19. NOTE Subjective: -Hand remains painful and swollen -Senior Property Manager and his mother were at bedside -He is nervous about the surgery this morning Objective: VITAL SIGNS: Please see below. GENERAL: no acute distress, deaf, lying awake in bed HEENT: NC/AT, EOMI CARDIOVASCULAR: RRR, +S1S2, systolic murmur LUNGS: CTA B/L ABDOMEN: Soft and nontender on palpation Ext: fourth distal phalange of left hand necrotic with streaking extending to periphery of finger with whole hand significantly swollen, tender to palpation with some dried oozing secretion at the tip of the necrotic finger. LABORATORY DATA: See below. IMAGING: reviewed MICROBIOLOGY: Please see below. ASSESSMENT: 43 yo deaf man with ESRD on HD MWF, hypertension, diabetes who was admitted for management of osteomyelitis affecting the left fourth distal phalanx as well as management of medical comorbidities now found to have not only have osteomyelitis but also 2 complex fluid collections in the hand c/w abscesses who is now s/p abscess washout and digit amputation this afternoon with Dr. Le and continuing on meropenem. PLAN: #Osteomyelitis / gangrene left fourth distal phalanx with hand abscesses: - Orthopedic surgery c/s appreciated - Now s/p a wash out of the abscesses as well as the gangrenous digit amputation this afternoon. He is in severe pain and his pain regimen has been changed to IV dilaudid post op. - ID onboard, appreciate recs, continue meropenem - vascular surg c/s appreciated; fistulogram showed steal syndrome, with retrograde filling of the radial artery via the ulnar artery into the palmar arch with continued filling of small digital arteries, now s/p ligation of AVF (LUE) and Permcath placement. #Hypertension - clonidine 0.2 mg BID - continue norvasc, cozaar, metoprolol, hydralazine and labetalol prn #ESRD - HD M/W/F - nephrology c/s appreciated #anemia - in the setting of ESRD - aranesp started with HD # diabetes -continue detemir 10U QHS for persistent hyperglycemia in this patient who is on detemir as an outpatient that was held on admission -SSI -fingerstick AC/HS #DVT prophylaxis - mechanical Dispo: s/p hand abscess washout and digit amputation today in significant pain. VS,Fishbone, I+O VS, Fishbone, I+O Laboratory Tests 06/02/19 05:17 Red Blood Count 3.29 L, Mean Corpuscular Volume 92.7, Mean Corpuscular Hemoglobin 30.7, Mean Corpuscular Hemoglobin Concent 33.1, Red Cell Distribution Width 13.1, Calcium Level 8.8 Vital Signs Date Time Temp Pulse Resp B/P (MAP) Pulse Ox O2 Delivery O2 Flow Rate FiO2 06/02/19 17:20 97.8 69 18 141/63 (89) 94 05/31/19 11:00 2 I&O- Last 24 Hours up to 6 AM 06/02/19 06:00 Intake Total 635 ml Output Total 3000 ml Balance -2365 ml RONAK HILL MD Jun 02, 2019 18:38
[2019-06-02] MEDS: MEROPENEM INJ 500 MG in APPROPRIATE DILUENT 1 EA IV SCH (18:45)
[2019-06-02] MEDS: HYDROMORPHONE HCL 0.5 MG/ 0.5 ML SYRINGE (J1170 PER 1) IV PRN ×2 (18:47→21:40)
[2019-06-02] MEDS ORDERED: ACETAMINOPHEN *IV* 1,000 MG in APPROPRIATE DILUENT 1 EA IV ONE (20:45)
[2019-06-02] MEDS: LEVEMIR (INSULIN DETEMIR) 1 UNITS/0.01ML SC SCH (21:47)
[2019-06-03] VITALS (23 sets, daily range): BP systolic 129–197; BP diastolic 61–96; O2SAT 91–97
[2019-06-03] MEDS: HYDROMORPHONE HCL 0.5 MG/ 0.5 ML SYRINGE (J1170 PER 1) IV PRN ×6 (00:48→21:10)
[2019-06-03] MEDS: **hydrALAZINE** 10 MG TAB PO SCH ×3 (06:26→21:11)
[2019-06-03] MEDS: SLF 3 ML SYR IV SCH ×3 (06:30→21:15)
[2019-06-03 06:46] LABS: HEMATOCRIT 31.4 % (42.0-52.0); HEMOGLOBIN 10.3 g/dl (13.5-17.5); MEAN CORPUSCULAR HEMOGLOBIN 31.6 pg (27.0-33.0); MEAN CORPUSCULAR HGB CONC 32.8 g/dl (32.0-36.5); MEAN CORPUSCULAR VOLUME 96.3 fl (80.0-96.0); PLATELET COUNT, AUTOMATED 257 10^3/uL (150-450); RED BLOOD COUNT 3.26 10^6/uL (4.30-6.10); WHITE BLOOD COUNT 11.6 10^3/uL (4.0-10.0)
[2019-06-03 07:38] LABS: CALCIUM LEVEL 8.9 MG/DL (8.5-10.1); CREATININE FOR GFR 8.26 MG/DL (0.70-1.30); GLOMERULAR FILTRATION RATE 7.4 (>60); VANCOMYCIN RANDOM 24.8 UG/ML
[2019-06-03] MEDS ORDERED: VANCOMYCIN HCL 500 MG in D5W MINI-BAG PLUS 100 ML IV SCH (08:00)
[2019-06-03] MEDS ORDERED: SOD POLYSTYRENE SULFONATE SUSP 15 GM/60 ML UD PO ONE ×2 (08:15→10:00)
--- NOTE | 2019-06-03 09:05 | RO ---
DATE OF PROCEDURE: 06/02/2019 PREOPERATIVE DIAGNOSIS: Left ring finger necrosis and palm abscess. POSTOPERATIVE DIAGNOSIS: Left ring finger necrosis and palm abscess. PROCEDURE: 1. Left ring finger amputation at proximal interphalangeal joint. 2. Irrigation and debridement of flexor sheath of the small finger and middle finger. 3. Radical tenosynovectomy of the flexor sheath of the ring finger. 4. A1 abelardo release of small finger, ring finger and middle finger. 5. Irrigation and debridement of multiple deep palm abscesses. 6. Open carpal tunnel release. 7. Irrigation and debridement subcu tissue, muscle and bone for infection. 8. Irrigation and opening of bone cortex for osteomyelitis. PREOPERATIVE ANTIBIOTICS: Patent is on IV antibiotics and was not due for a dose, this was adequate. SURGEON: Dr. Le TOURNIQUET TIME: 70 minutes approximately. COMPLICATIONS: None. SPECIMEN: Amputated fingertip along with two cultures. ASSISTANTS: None. ANESTHESIA: General. PROCEDURE DESCRIPTION: Patient was taken back to the OR and laid supine on an operative table with a hand table and underwent general anesthesia. Once this was complete, the patient's left arm was prepped and draped in the usual fashion. At this point a time out was had and we confirmed patient, side and surgery. Once all in agreement we proceeded with our incision after elevating the tourniquet to 250 mmHg. We created a medial sided mid-axial incision along the ring finger that was progressed runner type incision down in to the palm across the carpal tunnel towards the proximal clinic receptionist at which point using tenotomies we opened up the skin flaps and tacked them back with 3-0 Nylon. We encountered multiple abscesses or purulence within the palm and finger. We took cultures of these and sent them to the lab, two in total. At which point we directed our attention to identifying the superficial palmar arch being careful to preserve the structures. We identified the flexor tendon sheaths of the middle finger, ring finger and small finger. Starting with the middle finger releasing the A1 abelardo and irrigating the sheath ensuring no purulence was encountered. At which point we turned our attention to the ring finger. We released the A1 abelardo, entire flexor sheath and encounter significant purulence at which point we irrigated and debrided this sharply leaving skin, muscle, subcu tissue and bone. We did a radical tenosynovectomy of this ring finger down proximally towards the carpal tunnel, due to purulence within the sheath we then turned out attention to the small finger and released the A1 abelardo and irrigated and debrided the sheath as there was some minor purulence present. We then followed the structures proximally across and opened the carpal tunnel in order to encounter healthy tissue to know we have gotten to the full extent of the infection. The carpal tunnel was fully released and able to identify all the flexor tendons along with the median nerve. At this point we turned our attention back to the ring finger and we did an open arthrotomy of the proximal interphalangeal joint and amputated the digit at this level. This digit was sent for specimen. We then irrigated and debrided the wounds thoroughly with 1.5 liters of saline. Once we were happy with the debridement we used a Rongeur to smooth out the proximal phalanx of the ring finger. We also directed our attention to both the radial ulnar digital nerves and transected them proximally towards the palm in order to prevent neuroma development and be careful to preserve the arterial branches. At which point we transected both FDP and FDS proximal through the amputation site. While debriding the proximal phalanx we had to open this, the cortex for treatment of osteo and this was sharply debrided and irrigated thoroughly. At this point we were happy with the cleanliness of our wound and worked on closing the wound with 3-0 Nylon We revised the tip of the amputation to prevent a dog ear and dressed the wound in Adaptic, gauze, Kerlix and BENEDICTO. We also prior to placing the dressing injected 30 mL of 0.25% Marcaine with epinephrine in order to provider entire wrist block for postoperative pain. Patient was then extubated and taken stable to postanesthesia care unit after the tourniquet was released. Tourniquet time was approximately 70 minutes. POSTOPERATIVE PLAN: At this point the patient will be transferred back to the medicine service. We will work on pain control. The primary team and infectious disease have already been consulted and they will followup on the cultures to help narrow down the antibiotic dosage. At which point from an Orthopaedic standpoint. He is available to be discharged from the hospital from my standpoint as an orthopedist once he is stable otherwise. I will see him in the office 2 weeks after the surgery for evaluation of the wounds. He will also be nonweightbearing to that left hand. OPERATIVE INDICATIONS: This is a pleasant 49-year-old male with significant systemic comorbidities that has subsequently developed ring finger necrosis and cellulitis surround it with concern for a palm abscess. We discussed both nonoperative and operative management as the distal tip was mummified and he was not systemically ill with no fevers or white count, but we could follow this as an outpatient, however the patient would prefer to have this handled now. We did discuss how this may require a seconds surgery then, if he continues to have necrosis proximally. He expressed understanding and agrees with the plan. Consent was obtained for a left finger amputation and palm irrigation and debridement. All risks and benefits were discussed including not limited damage to surrounding structures, blood loss, infection and need for further surgery. Patient agreed with this plan.
[2019-06-03] MEDS: SUCROFERRIC OXYHYDROXIDE 500MG CHEW TAB (VELPHORO) PO SCH ×3 (09:29→17:38)
[2019-06-03] MEDS: HumaLOG INSULIN (NovoLOG) PER UNIT SC SCH ×4 (09:29→21:00)
[2019-06-03] MEDS: LOSARTAN 50 MG TAB PO SCH (09:30)
[2019-06-03] MEDS: METOPROLOL TART 25 MG TABLET PO SCH ×2 (09:30→21:11)
[2019-06-03] MEDS: PANTOPRAZOLE 40MG TAB (PROTONIX) PO SCH (09:30)
[2019-06-03] MEDS: amLODIPine 5 MG TAB PO SCH (09:31)
[2019-06-03] MEDS: CYANOCOBALAMIN 500 MCG TAB PO SCH (09:31)
[2019-06-03] MEDS: cloNIDine 0.2 MG TAB PO SCH ×2 (09:31→21:12)
[2019-06-03] MEDS: SERTRALINE HCL 25 MG TABLET PO SCH (09:31)
[2019-06-03] MEDS: oxyCODONE 5MG TAB PO PRN ×2 (14:17→19:00)
[2019-06-03] MEDS: **VANCO AFTER HD** MISC XX SCH ×2 (16:00→20:10)
[2019-06-03] MEDS: MEROPENEM INJ 500 MG in APPROPRIATE DILUENT 1 EA IV SCH (17:37)
--- NOTE | 2019-06-03 19:54 | IPNPDOC ---
Text Note Date of Service The patient was seen on 06/03/19. NOTE Subjective: -Had surgery yesterday --> has significant pain --> still painful despite dilaudid -Linux Unix Engineer and his mother were at bedside Objective: VITAL SIGNS: Please see below. GENERAL: no acute distress, deaf, lying awake in bed HEENT: NC/AT, EOMI CARDIOVASCULAR: RRR, +S1S2, systolic murmur LUNGS: CTA B/L ABDOMEN: Soft and nontender on palpation Ext: L hand wrapped in dressing LABORATORY DATA: See below. IMAGING: reviewed MICROBIOLOGY: Please see below. Surgery cultures growing staph and strep agalactiae ASSESSMENT: 43 yo deaf man with ESRD on HD MWF, hypertension, diabetes who was admitted for management of osteomyelitis affecting the left fourth distal phalanx as well as management of medical comorbidities now found to have not only have osteomyelitis but also 2 complex fluid collections in the hand c/w abscesses who is now s/p abscess washout and digit amputation with Dr. Le and cultures growing staph and strep agalactiae continuing on vanc/meropenem. PLAN: #Osteomyelitis / gangrene left fourth distal phalanx with hand abscesses: - Orthopedic surgery c/s appreciated - Now s/p a wash out of the abscesses as well as the gangrenous digit amputation this afternoon. He is in severe pain and his pain regimen has been changed to IV dilaudid and today I added oxy 5Q4H with plan to reduce to oxy for discharge. - ID onboard, appreciate recs, continue vanc/meropenem - vascular surg c/s appreciated; fistulogram showed steal syndrome, with re trograde filling of the radial artery via the ulnar artery into the palmar arch with continued filling of small digital arteries, now s/p ligation of AVF (LUE) and Permcath placement. #Hypertension - clonidine 0.2 mg BID - continue norvasc, cozaar, metoprolol, hydralazine and labetalol prn #ESRD - HD M/W/F - nephrology c/s appreciated #anemia - in the setting of ESRD - aranesp started with HD # diabetes -continue detemir 10U QHS for persistent hyperglycemia in this patient who is on detemir as an outpatient that was held on admission -SSI -fingerstick AC/HS #DVT prophylaxis - mechanical Dispo: s/p hand abscess washout and digit amputation in significant pain. VS,Fishbone, I+O VS, Fishbone, I+O Laboratory Tests 06/03/19 06:23 Red Blood Count 3.26 L, Mean Corpuscular Volume 96.3 H, Mean Corpuscular Hemoglobin 31.6, Mean Corpuscular Hemoglobin Concent 32.8, Red Cell Distribution Width 13.1, Calcium Level 8.9 Vital Signs Date Time Temp Pulse Resp B/P (MAP) Pulse Ox O2 Delivery O2 Flow Rate FiO2 06/03/19 19:00 20 06/03/19 18:00 97 Room Air 06/03/19 17:51 166/80 (108) 06/03/19 16:00 98.5 67 05/31/19 11:00 2 I&O- Last 24 Hours up to 6 AM 06/03/19 06:00 Intake Total 640 ml Output Total 50 ml Balance 590 ml RONAK HILL MD Jun 03, 2019 19:54
[2019-06-03] MEDS: LEVEMIR (INSULIN DETEMIR) 1 UNITS/0.01ML SC SCH (21:11)
[2019-06-04] VITALS (11 sets, daily range): BP systolic 150–218; BP diastolic 70–110; O2SAT 94–97
[2019-06-04] MEDS: oxyCODONE 5MG TAB PO PRN ×4 (00:14→22:19)
--- NOTE | 2019-06-04 02:47 | IPN ---
DATE: 06/01/2019 Miquel was seen at dialysis, complains of pain in left hand that had improved when medicated before dialysis. He had no chills. No nausea, vomiting, or diarrhea. No abdominal pain. No chest pain or shortness of breath. He has not been seen by orthopedic surgery yet. He remains afebrile since admission. Temperature is 97.7, pulse 68, respirations 17, blood pressure 150/78, oxygen saturation 98% on room air. HEART: Normal S1, S2 with no murmurs appreciated. LUNGS: Clear. No wheezes, rales, or rhonchi. ABDOMEN: Soft, nontender. No hepatosplenomegaly. Bowel sounds are present. EXTREMITIES: No clubbing or cyanosis. No lower extremity edema. He has diabetic foot ulcer on the big toe, dry, scabbed. No evidence of infection on his feet. Left ring finger is swollen, red, necrotic. Distal phalanx with purulent smell. There is swelling involving the whole finger as well into the hand correction overlying his 3rd, 4th, and 5th metacarpal. The patient has difficulty with flexion of the hand. IMPRESSION: 1. Left hand cellulitis with acute osteomyelitis of the ring finger and deep tissue abscess that needs to be drained. Orthopedic surgery has been consulted on iV vanco and meropenem to cover for anaerobes instead of cefepime. Ultrasound showed two abscesses, complex fluid collection 1.8 x 1.7 x 1.2 cm, and another one 0.5 x 0.3 cm. 2. End-stage renal disease, on hemodialysis status post reversal of arteriovenous (AV) fistula on the left hand due to concern for steal syndrome. 3. Deaf. Patient has an full time staff interpreter at the bedside at all times. PLAN: Continue IV vancomycin and meropenem. Consult orthopedic surgery regarding incision and drainage of the hand and possibly transfer to [facility] for a hand specialist. Patient needs an incision and drainage and distal amputation of the finger. [facility]
[2019-06-04] MEDS: HYDROMORPHONE HCL 0.5 MG/ 0.5 ML SYRINGE (J1170 PER 1) IV PRN (03:16)
[2019-06-04] MEDS: **hydrALAZINE** 10 MG TAB PO SCH ×3 (05:56→22:16)
[2019-06-04] MEDS: METOPROLOL TART 25 MG TABLET PO SCH ×2 (05:56→22:15)
[2019-06-04] MEDS: SLF 3 ML SYR IV SCH ×3 (05:56→22:00)
[2019-06-04 06:26] LABS: HEMATOCRIT 29.9 % (42.0-52.0); HEMOGLOBIN 9.8 g/dl (13.5-17.5); MEAN CORPUSCULAR HEMOGLOBIN 31.4 pg (27.0-33.0); MEAN CORPUSCULAR HGB CONC 32.8 g/dl (32.0-36.5); MEAN CORPUSCULAR VOLUME 95.8 fl (80.0-96.0); PLATELET COUNT, AUTOMATED 237 10^3/uL (150-450); RED BLOOD COUNT 3.12 10^6/uL (4.30-6.10); WHITE BLOOD COUNT 10.4 10^3/uL (4.0-10.0)
[2019-06-04 06:51] LABS: CALCIUM LEVEL 8.9 MG/DL (8.5-10.1); CREATININE FOR GFR 9.88 MG/DL (0.70-1.30); POTASSIUM SERUM 5.2 MEQ/L (3.5-5.1)
[2019-06-04] MEDS: SUCROFERRIC OXYHYDROXIDE 500MG CHEW TAB (VELPHORO) PO SCH ×3 (07:04→17:33)
[2019-06-04] MEDS: HumaLOG INSULIN (NovoLOG) PER UNIT SC SCH ×4 (07:04→22:20)
[2019-06-04] MEDS: cloNIDine 0.2 MG TAB PO SCH ×3 (07:53→22:16)
[2019-06-04] MEDS: amLODIPine 5 MG TAB PO SCH ×2 (07:54→08:00)
[2019-06-04] MEDS: LOSARTAN 50 MG TAB PO SCH ×2 (07:54→08:00)
[2019-06-04] MEDS: SERTRALINE HCL 25 MG TABLET PO SCH (08:01)
[2019-06-04] MEDS: CYANOCOBALAMIN 500 MCG TAB PO SCH (08:01)
[2019-06-04] MEDS: PANTOPRAZOLE 40MG TAB (PROTONIX) PO SCH (08:01)
--- NOTE | 2019-06-04 10:47 | IPN ---
DATE OF SERVICE: 06/02/2019 SUBJECTIVE: The patient's labs, images, medications, intake and output was reviewed only today. He was not examined. The patient had already gone to the operating room (OR) for his left hand surgery, drainage of abscess and possible partial amputation of the left ring finger. He was dialyzed yesterday. He tolerated the hemodialysis procedure well, 3 liters of fluid was removed. OBJECTIVE: Vital Signs: Temperature is 97.9 degrees Fahrenheit, blood pressure 148/70, pulse is 70, respiratory rate of 20, saturating 96% on room air. Intake and Output: There is no urine output recorded. Ultrafiltration with hemodialysis was 3 liters, weight in the bed scale is not available. PHYSICAL EXAMINATION: I was not able to do the physical exam on the patient. He was in the OR. LAB REVIEW: CBC showed WBC 10.7, hemoglobin 10.1, platelets 265. BMP showed sodium 136, potassium 4.4, chloride 100, bicarb 24, BUN 34, creatinine is 5.9. CURRENT INPATIENT MEDICATIONS: The patient's medications were all reviewed by me. There is no change in the medications today as compared with yesterday apart from some pain medications that have been ordered in the OR. ASSESSMENT/PLAN: 1. End-stage renal disease on hemodialysis. The patient was dialyzed yesterday. Next hemodialysis will be done after the weekend on Tuesday. 2. Hypertension with end-stage renal disease. Continue current antihypertensive medications. Blood pressures are optimal. 3. Anemia in end-stage renal disease. Hemoglobin level is optimal. Continue current dose of Aranesp with dialysis once a week. 4. Left hand abscess and osteomyelitis of the ring finger. The patient continues to be on IV antibiotics. He is in the OR today for drainage of the abscess and partial amputation of the left ring finger.
[2019-06-04] MEDS ORDERED: HEPARIN 1,000 UNITS/ML 10ML VIAL (FOR RADIOLOGY& DIALYSIS ONLY) XX ONE (11:00)
[2019-06-04] MEDS ORDERED: HEPARIN 1,000 UNITS/ML 10ML VIAL (FOR RADIOLOGY& DIALYSIS ONLY) IV ONE (11:00)
--- NOTE | 2019-06-04 11:18 | IPN ---
DATE OF SERVICE: 06/03/2019 SUBJECTIVE: The patient was seen and examined at the bedside today morning. He is afebrile, hemodynamically stable. He was taken to the operating room (OR) yesterday by orthopedics, he got an incision and drainage of the left hand abscess and amputation of the left ring finger. The patient reports his pain is optimized. He is hyperkalemic today morning with a potassium of 6. Otherwise he himself denies any active complaints. OBJECTIVE: Vital Signs: Temperature is 98.2 degrees Fahrenheit, blood pressure 187/70, pulse is 80, respiratory rate of 18, saturating 96% on room air. Intake and Output: There is no urine output recorded weight in the bed scale is 122.8 kg. PHYSICAL EXAMINATION: General: The patient is awake, alert, oriented times three, laying in bed in no apparent distress. Head and Neck Exam: Extraocular muscles intact. Pupils equally round and reactive to light. Mucous membranes are moist. Neck is supple. He has a right IJ tunneled hemodialysis catheter. Cardiovascular: S1 and S2, regular rate. No edema of the bilateral lower extremities. Respiratory: Chest is clear to auscultation bilaterally. Bilateral equal air entry. No rales or rhonchi. Abdomen: Soft, obese, positive bowel sounds. Nontender. Musculoskeletal: No clubbing or cyanosis. Pulses are 2+. He has a large dressing on the left hand at the surgical site. RELATIONS SPECIALIST: The patient is chronically deaf and mute. He follows commands and he communicates with film and video graphics designer. LAB REVIEW: CBC showed a WBC of 11.6, hemoglobin 10.3 and platelets 257. BMP showed sodium 134, potassium 6, chloride 100, bicarb 23, BUN 50, and creatinine is 8.2. Microbiology: His wound cultures came back and he is growing Staph aureus heavy growth and group B Strep heavy growth. CURRENT INPATIENT MEDICATIONS: The patient's medications were all reviewed by me. He continues to be on IV meropenem and IV vancomycin. No other change in the medications today as compared with yesterday. ASSESSMENT/PLAN: 1. End-stage renal disease. The patient was dialyzed on Tuesday. He will be dialyzed tomorrow morning gear repairer in the first shift. No urgent need of hemodialysis today. 2. Hyperkalemia. Potassium is 6. The patient was given a dose of Kayexalate 30 grams by mouth times one dose. He will be dialyzed with a one K bath tomorrow morning. 3. Anemia in end-stage renal disease. Hemoglobin is 10.3. He continues to be on Aranesp 100 mcg IV with hemodialysis. Hemoglobin level is optimal. 4. Hypertension with end-stage renal disease. The patient has elevated blood pressures. She is on a multidrug regimen including amlodipine 5 mg by mouth daily, clonidine 0.2 mg by mouth twice a day, hydralazine 10 mg by mouth every 8 hours. He is on p.r.n. labetalol as well and losartan 100 mg by mouth daily along with metoprolol 25 mg by mouth twice a day. Continue current regimen. Further change in the regimen will be done after dialysis and volume optimization. 5. Left hand abscess status post sepsis drainage and a left ring finger amputation. Cultures are growing Staph aureus and group B Strep. Continue meropenem and vancomycin.
[2019-06-04] MEDS: ACETAMINOPHEN TAB 650MG DOSE (2X325MG) PO PRN (13:39)
[2019-06-04] MEDS: **VANCO AFTER HD** MISC XX SCH (14:21)
--- NOTE | 2019-06-04 18:37 | IPN ---
DATE: 06/04/2019 SUBJECTIVE: Mr. Morris was seen and examined this afternoon sitting up in his bed. He had no complaints this morning. His pain is under control ever since his surgery on Tuesday. He denies any fevers, chills, night sweats, abdominal pain. He is tolerating the antibiotics with no problem. He wishes to go home and he has no other complaints today. PHYSICAL EXAMINATION: VITALS: Temperature 97.7, pulse 78, respirations 18, blood pressure 166/80 (114), pulse ox 95% on room air. GENERAL: This is a pleasant 85-year-old male sitting up in his bed, appropriately signing language with the ASL. HEART: Regular rate and rhythm. No audible murmurs, rubs or gallops. LUNGS: Clear to auscultation bilaterally. No audible wheezing, rhonchi or rales. ABDOMEN: Soft, nontender with positive bowel sounds in all four quadrants. EXTREMITIES: No lower extremity edema. He has a diabetic foot ulcer on his big toe, dry scab with no evidence of infection to the feet. His left hand is wrapped in bandage, the 2nd and 3rd finger visible, not swollen. Unable to visualize the wound. He just recently had surgery Tuesday. LABS: WBC 10.4, hemoglobin 9.8, hematocrit 29.9, platelets 237, chemistries sodium 134, potassium 5.2, chloride 99, carbon dioxide 24, BUN 64, creatinine 9.88, fasting glucose 165, CRP 13.0. MICROBIOLOGY: Surgical biopsy of the right ring finger positive for MSSA and group B strep agalactiae antibiotics vancomycin and meropenem. IMPRESSION: 1. Left hand cellulitis with acute osteomyelitis of the ring finger and deep tissue abscess, status-post left ring amputation incision and drainage of the flexor sheath and multiple palm deep abscesses by orthopedic surgery on 06/02/2019. Ultrasound showed two abscesses, complex fluid collections 1.8 x 1.7 x 1.2 cm and another one 0.5 x 0.3 cm. Patient is currently on vancomycin and meropenem. 2. End stage renal disease on hemodialysis status-post reversal of AV fistula in the left hand. 3. Deaf. Patient had an train driver at bedside at all times. PLAN: We will continue the IV vancomycin for the next 1 week after hemodialysis and we will discontinue the meropenem. Patient can be discharge tomorrow once medically stable. He will followup with infectious disease clinic in 7-10 days after he has followed up with orthopedic surgery so the wound can be visualized. At that time we will see about transitioning his IV hemodialysis antibiotics to by mouth pending clinical improvement. Please be sure to set up vancomycin status-post hemodialysis with nephrology prior to discharge.
--- NOTE | 2019-06-04 22:02 | IPN ---
DATE: 06/04/2019 SUBJECTIVE: The patient was seen and examined at the bedside today morning during hemodialysis procedure. He is tolerating the hemodialysis procedure well. He denies any active complaint. OBJECTIVE: Vital signs: Temperature is 97.9 degrees Fahrenheit, blood pressure 218/110, pulse is 68, respiratory rate of 16, saturating 96% on room air. Intake and output: There is no urine output recorded. Weight in the bed scale was 122.8 kg . PHYSICAL EXAMINATION: General: The patient is awake, alert, oriented x3, laying in bed, getting hemodialysis done. Head and neck exam: Extraocular muscles intact. Pupils equally round and reactive to light. He has a right IJ tunneled hemodialysis catheter, which is being used for dialysis. Cardiovascular: S1, S2 regular rate. No edema of the bilateral lower extremities. Respiratory: Chest is clear to auscultation bilaterally. Bilateral equal air entry. No rales or rhonchi. Abdomen: Soft, obese, positive bowel sounds. Nontender. Musculoskeletal: No clubbing or cyanosis. Pulses are 2+. Left hand has a large dressing. COMPLIANCE MANAGER: The patient is chronically deaf and mute. However, he is able to communicate through the telephone appointment clerk. LABORATORY REVIEW: Complete blood count (CBC) showed a WBC 10.4, hemoglobin 9.8, platelets of 137. BMP showed sodium 134, potassium 5.2, chloride 99, bicarbonate 24, BUN 64, creatinine is 9.8, calcium 8.9. Microbiology: Wound cultures from left hand were growing Staphylococcus aureus and Streptococcus agalactiae group B. CURRENT INPATIENT MEDICATIONS: The patient's medications were all reviewed by me. He continues to be on IV vancomycin and IV meropenem. No other change in the medications today as compared with yesterday. ASSESSMENT/PLAN: 1. End-stage renal disease on hemodialysis. Today is the patient's regular day. He is tolerating the hemodialysis procedure well. Ultrafiltration will be at least 2.5 to 3 kg as tolerated by his blood pressure . Hyperkalemia. The patient got a dose of Kayexalate yesterday. His diet was changed to renal diet with low potassium. He is being dialyzed with a two K bath, potassium level is expected to improve after dialysis. 2. Hyponatremia. The patient has hypovolemic hyponatremia. Sodium would improve with dialysis and ultrafiltration. 3. Hypertension with end-stage renal disease. The patient is on multidrug regimen. I am going to adjust his medications today depending upon how much hydralazine and as needed labetalol he is receiving. 4. Left hand abscess, status post incision and drainage and the left ring finger amputation. The patient currently on meropenem and vancomycin, which adequately covers the organisms that he is growing in the abscess.
[2019-06-04] MEDS: LEVEMIR (INSULIN DETEMIR) 1 UNITS/0.01ML SC SCH (22:20)
--- NOTE | 2019-06-04 22:23 | IPNPDOC ---
Text Note Date of Service The patient was seen on 06/04/19. NOTE Subjective: -Pain much improved, dc'd dilaudid, on oxy PRN -Director Of Marketing Operations and his mother were at bedside Objective: VITAL SIGNS: Please see below. GENERAL: no acute distress, deaf, lying awake in bed HEENT: NC/AT, EOMI CARDIOVASCULAR: RRR, +S1S2, systolic murmur LUNGS: CTA B/L ABDOMEN: Soft and nontender on palpation Ext: L hand wrapped in dressing LABORATORY DATA: See below. IMAGING: reviewed MICROBIOLOGY: Please see below. Surgery cultures growing staph and strep ag alactiae ASSESSMENT: 43 yo deaf man with ESRD on HD MWF, hypertension, diabetes who was admitted for management of osteomyelitis affecting the left fourth distal phalanx as well as management of medical comorbidities now found to have not only have osteomyelitis but also 2 complex fluid collections in the hand c/w abscesses who is now s/p abscess washout and digit amputation with Dr. Le and cultures growing staph and strep agalactiae on vanc/meropenem. PLAN: #Osteomyelitis/gangrene left fourth distal phalanx with hand abscesses: - Orthopedic surgery c/s appreciated - Now s/p a wash out of the abscesses as well as the gangrenous digit amputation this afternoon. Post op pain much impr corey, dc'd dilaudid, now on oxy [id number] PRN. - ID onboard, appreciate recs, continue vanc to dc meropenem -planning for vanc dosing with HD for 7 days then f/u in ID clinic after - vascular surg c/s appreciated; fistulogram showed steal syndrome, with retrograde filling of the radial artery via the ulnar artery into the palmar arch with continued filling of small digital arteries, now s/p ligation of AVF (LUE) and Permcath placement. #Hypertension - clonidine 0.2 mg BID - continue norvasc, cozaar, metoprolol, hydralazine and labetalol prn #ESRD - HD M/W/F - nephrology c/s appreciated #anemia - in the setting of ESRD - aranesp started with HD # diabetes -continue detemir -SSI -fingerstick AC/HS #DVT prophylaxis - mechanical Dispo: Dc home tomorrow on vanc dosed at HD for 7 days. VS,Fishbone, I+O VS, Fishbone, I+O Laboratory Tests 06/04/19 05:51 Red Blood Count 3.12 L, Mean Corpuscular Volume 95.8, Mean Corpuscular Hemoglobin 31.4, Mean Corpuscular Hemoglobin Concent 32.8, Red Cell Distribution Width 13.2, Calcium Level 8.9 Vital Signs Date Time Temp Pulse Resp B/P (MAP) Pulse Ox O2 Delivery O2 Flow Rate FiO2 06/04/19 20:00 97.6 77 18 150/86 (107) 97 06/04/19 06:00 Room Air 05/31/19 11:00 2 I&O- Last 24 Hours up to 6 AM 06/04/19 06:00 Intake Total 650 ml Output Total 0 ml Balance 650 ml RONAK HILL MD Jun 04, 2019 22:23
[2019-06-05] MEDS: oxyCODONE 5MG TAB PO PRN ×2 (03:48→12:05)
[2019-06-05 04:00] VITALS: BP 154/88
[2019-06-05 05:52] LABS: HEMATOCRIT 29.7 % (42.0-52.0); HEMOGLOBIN 9.6 g/dl (13.5-17.5); MEAN CORPUSCULAR HEMOGLOBIN 30.2 pg (27.0-33.0); MEAN CORPUSCULAR HGB CONC 32.3 g/dl (32.0-36.5); MEAN CORPUSCULAR VOLUME 93.4 fl (80.0-96.0); PLATELET COUNT, AUTOMATED 253 10^3/uL (150-450); RED BLOOD COUNT 3.18 10^6/uL (4.30-6.10); WHITE BLOOD COUNT 9.3 10^3/uL (4.0-10.0)
[2019-06-05] MEDS: SLF 3 ML SYR IV SCH (06:00)
[2019-06-05 06:03] LABS: CALCIUM LEVEL 8.8 MG/DL (8.5-10.1); CREATININE FOR GFR 7.47 MG/DL (0.70-1.30); GLOMERULAR FILTRATION RATE 8.3 (>60); POTASSIUM SERUM 4.4 MEQ/L (3.5-5.1)
[2019-06-05] MEDS: **hydrALAZINE** 10 MG TAB PO SCH (06:54)
[2019-06-05 08:00] VITALS: BP 162/66
[2019-06-05] MEDS ORDERED: HYDR10TAB PO (08:03)
[2019-06-05 08:23] VITALS: BP 162/66
[2019-06-05] MEDS: CYANOCOBALAMIN 500 MCG TAB PO SCH (08:23)
[2019-06-05] MEDS: cloNIDine 0.2 MG TAB PO SCH (08:23)
[2019-06-05] MEDS: LOSARTAN 50 MG TAB PO SCH (08:23)
[2019-06-05] MEDS: PANTOPRAZOLE 40MG TAB (PROTONIX) PO SCH (08:23)
[2019-06-05] MEDS: SERTRALINE HCL 25 MG TABLET PO SCH (08:23)
[2019-06-05] MEDS: METOPROLOL TART 25 MG TABLET PO SCH (08:23)
[2019-06-05] MEDS: HumaLOG INSULIN (NovoLOG) PER UNIT SC SCH ×2 (08:24→12:07)
[2019-06-05] MEDS: SUCROFERRIC OXYHYDROXIDE 500MG CHEW TAB (VELPHORO) PO SCH ×2 (08:24→12:05)
[2019-06-05] MEDS ORDERED: amLODIPine 10 MG TAB PO SCH (09:00)
[2019-06-05] MEDS ORDERED: INFLUENZA QUADRIVALENT PF VACCINE 0.5ML SYRINGE (90686) IM ONE (11:00)
--- NOTE | 2019-06-05 15:13 | DSES ---
DATE OF ADMISSION: 05/23/2019 DATE OF DISCHARGE: 06/05/2019 CONSULTANTS DURING THIS ADMISSION: Production Internship: Dr. Ding. Dr. Irving Dorado. Vascular surgeon: Dr. Blair. Venous mapping study: Dr. Sg Cabral. Hand surgeon: Dr. Jean Pierre Le. Infectious disease specialist: Dr. Casiano. PROCEDURES DURING THIS ADMISSION: 05/28/2019 - fistulogram due to necrotic fingers left. 05/31/2019 - Dialysis catheter placement, status post fistulogram 06/05/2019 06/02/2019 - Left ring finger amputation at proximal interphalangeal joint. Irrigation and debridement of flexor sheath of the small finger and middle finger. Radical tenosynovectomy of the flexor sheath of the right finger. A1 total release of small finger, ring finger and middle finger. Irrigation and debridement multiple deep palm abscesses, open carpal tunnel release. Irrigation and debridement subcutaneous tissue, muscle and bone for infection. Irrigation and opening of the bone cortex for osteomyelitis. DISCHARGE DIAGNOSES: 1. Left 4th distal phalanx and abscess and osteomyelitis with gangrene. 2. Hypertension. 3. End-stage renal disease on maintenance dialysis Tuesday, Tuesday and Tuesday. 4. Anemia in the setting of end-stage renal disease. 5. Type 2 diabetes. 6. Left hand cellulitis with acute osteomyelitis of the left ring finger and deep tissue abscess requiring debridement. 7. Deaf, requiring skimmer reverberatory. DISCHARGE MEDICATIONS: - Patient is to continue vancomycin 1 gram IV on hemodialysis days for a total course of 6 weeks. - Hydralazine 10 mg every 8 hours - vitamin D3 5000 units twice a week - vitamin B12 500 mcg daily - Natasha-Rajiv one tablet daily - glipizide 20 twice a day - Levemir insulin 32 units subcu twice a day - lispro insulin sliding scale - losartan 100 daily - metoprolol 25 mg twice a day - Protonix 40 mg daily - Crestor 10 mg nightly - sertraline 25 mg daily - Velphoro 500 mg by mouth every morning Clonidine 0.3 mg daily has been discontinued. FOLLOWUP ISSUES: Followup with orthopaedic surgery, Dr. Le as recommended. Dr Dorado for dialysis needs within [address] Casiano as an outpatient within 1 week of discharge and primary care physician appointment. HOSPITAL COURSE: 49-year-old male who presented to the emergency room with left hand swelling and pain described as throbbing with what started as a blister on the left 4th finger due to having the arteriovenous fistula on the left side complicated by steal syndrome. The patient was admitted for cellulitis and was found to have significant multiple abscesses in the hand requiring hand surgeon to debride, irrigate. Patient was started on intravenous antibiotics on admission with vancomycin and cefepime during his dialysis days. He did have uncontrolled hypertension and was initially placed on hydralazine 10 every 8 hours, labetalol 5 IV every 4 hours as needed and metoprolol 25 mg twice a day. Dr. Dorado and Toña were consulted for dialysis needs. Patient's white count was elevated at 12.2 on admission. He was afebrile at 98.8. Microbiology grew out Staphylococcus aureus and group B agalactiae. He was continued on vancomycin. Infectious disease specialist, Dr. Onur Casiano saw the patient and recommended 6 weeks of intravenous antibiotics. He was taken to the operating room by Dr. Blair for ultrasound-guided right internal jugular vein cannulation for renal replacement therapy access, left radiocephalic autogenous arteriovenous fistula with steal syndrome in both 4th and 5th finger ulceration with gangrene. Dr. Le performed amputation on 06/02/2019 of the left ring finger at the proximal interphalangeal joint. Irrigation and debridement of the flexor sheath of the small finger and middle finger. Radical tenosynovectomy of the flexor sheath of the right finger, A1 abelardo release of the small finger, right finger, and middle finger. Irrigation and debridement of multiple deep palm abscesses. Open carpal tunnel release. Irrigation and debridement of subcutaneous tissue, muscle and bone for infection. Irrigation and opening of the bone cortex for osteomyelitis, which approximately took 70 minutes and cultures obtained. Patient was to followup with hand surgery two weeks after amputation. He is to be non-weightbearing on that left hand. LABORATORY DATA ON DISCHARGE: White count 9.3, hemoglobin 9.6, hematocrit 29.7 and platelet count 23. Sodium 135, potassium 4.4, chloride 99, bicarbonate 24, BUN 41, creatinine 7.47, glucose 164, calcium 3.8. Microbiology: 05/23/2019, two sets of blood cultures. No growth after 5 days. Left hand culture: 06/02/2019, left ring finger Staphylococcus aureus and group B strep agalactiae resistant to erythromycin and penicillin G. Staphylococcus aureus is sensitive to ampicillin and cefotaxime and ceftriaxone Levaquin, Avelox, penicillin G titers, were cycline and vancomycin. Group B strep agalactiae is sensitive to vancomycin, Bactrim, tetracycline, oxacillin, minocycline, Zyvox, gentamicin, daptomycin and clindamycin. IMAGING STUDIES: 05/23/2019 hand x-ray: There are some soft tissue changes involving 4th digit suggesting osteomyelitis. CT upper extremity 05/28/2019 showed no occlusion or significant stenosis identified within the field of view. Extremity arterial study 05/28/2019: Arteriovenous fistula in place consistent with overlying bandaging material. Monophasic forms throughout the left upper arterial system noted. Flow is somewhat increased on the distal left apical artery as well as ulnar and radial arteries. CTA on 05/28/2019 mild cardiomegaly. No pulmonary embolism. No acute pulmonary process. Thoracic aorta and major branches are intact without aneurysm, stenosis, dissection or occlusion. Extremity ultrasound 05/31/2019, suggestive of abscess in the palmar soft tissue on 05/31/2019. Time spent on discharge 30 minutes. MTDD
--- NOTE | 2019-06-05 18:32 | IPN ---
DATE: 06/05/2019 SUBJECTIVE: The patient was seen and examined at the bedside today morning. He is afebrile, hemodynamically stable. He was dialyzed yesterday. He tolerated the hemodialysis procedure well and 2.5 liters of fluid was removed. He continues to be IV antibiotics. The patient reports that he probably might get discharged today. OBJECTIVE: VITAL SIGNS: Temperature is 97.6 degrees Fahrenheit, blood pressure 162/66, pulse is 63, respiratory rate of 18, saturating 96% on room air. INTAKE AND OUTPUT: Ultrafiltration with hemodialysis was 2.5 liters. Weight in the bed scale is 122.9 kg. PHYSICAL EXAMINATION: GENERAL: The patient is awake, alert and oriented times three, laying in bed, in no apparent distress. HEAD AND NECK: Extraocular muscles intact. Pupils equally round and reactive to light. Mucous membranes are moist. Neck is supple. Right internal jugular (IJ) tunneled hemodialysis catheter is noted. CARDIOVASCULAR: S1, S2, regular rate. No edema of the bilateral lower extremities. RESPIRATORY: Chest is clear to auscultation bilaterally. Bilateral equal air entry. No rales or rhonchi. ABDOMEN: Soft, obese, positive bowel sounds, nontender. MUSCULOSKELETAL: He has a dressing on the left hand. CENTRAL NERVOUS SYSTEM (ACUTE CARE NURSING ASSISTANT): The patient is congenitally deaf and mute. Otherwise, he follows commands, moves extremities and communicates through a web design specialist. LABORATORY REVIEW: CBC showed a WBC 9.3, hemoglobin is 9.6, platelets are 153. BMP showed sodium 135, potassium 4.4, chloride 99, bicarbonate 24, BUN 41, creatinine is 7.4. CURRENT INPATIENT MEDICATIONS: The patient's medications were all reviewed by me. His IV meropenem has been stopped. He continues to be on vancomycin with dialysis. Amlodipine dose has been increased to 10 mg daily. No other change in the medications today as compared with yesterday. ASSESSMENT AND PLAN: 1. End-stage renal disease, on hemodialysis. The patient was dialyzed yesterday. He tolerated the hemodialysis procedure well. Next hemodialysis will be done tomorrow morning. 2. Hyperkalemia. Potassium is improved after dialysis with a 2K bath. Potassium is 4.4 today. 3. Anemia and end-stage renal disease. Hemoglobin is 9.6 which is slightly suboptimal. Continue current dose of Aranesp 200 mcg IV with hemodialysis. 4. Hypertension with end-stage renal disease. The patient's blood pressures are still high. Amlodipine dose has been increased to 10 mg daily. Continue current dose of clonidine 0.2 mg by mouth twice a day, hydralazine 10 mg by mouth every eight hourly, losartan 100 mg by mouth daily, metoprolol 25 mg by mouth twice a day. 5. Left hand abscess, status post incision and drainage. The patient was on meropenem and vancomycin. I see the meropenem has been stopped. He is currently on vancomycin only. The patient is being seen by infectious disease as well.
--- NOTE | 2019-06-07 12:41 | ROOPDOC ---
[facility] Report Of Operation Report of Operation DATE OF PROCEDURE: 05/31/2019 PREOPERATIVE DIAGNOSIS: End-stage renal disease. Left hand cellulitis, nonhealing left fourth finger gangrene and ulceration, left first finger ulceration, autogenous left radiocephalic arteriovenous fistula with steal syndrome. POSTOPERATIVE DIAGNOSIS: End-stage renal disease. Left hand cellulitis, nonhealing left fourth finger gangrene and ulceration, left first finger ulceration, autogenous left r adiocephalic arteriovenous fistula with steal syndrome.. PROCEDURE: Left radiocephalic autogenous arteriovenous fistulogram. Selective left radial artery catheter placement with angiogram. Selective left brachial artery catheter placement with angiogram. Selective left axillary artery catheter placement with angiogram. Selective left subclavian artery catheter placement with angiogram. Selective aortic arch catheter placement with angiogram. SURGEON: Dr. Slade Blair M.D. PLATE WASHER: Yon Cabrera and Linda Montanez INDICATION: Patient is a 49-year-old male with end-stage renal disease who dialyzes through a left radiocephalic autogenous arteriovenous fistula. Patient has had gangrene and ulceration of his left fourth finger which began in January and at this time has worsened and has also developed cellulitis in the left hand at the base of the fingers. Patient also has a small discoloration and ulceration which is present on the left first finger. Patient underwent a in fistulogram an angiogram which showed the brachial artery to widely patent into the radial and ulnar arteries which were small and showed diffuse atherosclerotic arterial occlusive disease and plaquing with no specific occlusions or stenosis noted. The fistulogram and angiogram did show retrograde filling of the radial artery through the ulnar artery into the palmar arch and into the arteriovenous fistula with less flow into the fingers then normal. The patient underwent a CT angiogram which showed no specific stenosis in the subclavian artery, axillary artery or brachial artery. The recommendation was for the patient to undergo placement of a tunneled central venous catheter and ligation of the arteriovenous fistula to better improve flow into the left hand to aid with healing and prevention of loss of limb. Patient was hesitant to undergo ligation of the fistula. After a long discussion with the patient the patient agreed to undergo ligation of the fistula as long as a repeat angiogram was performed confirming no evidence of stenosis in the subclavian artery, axillary artery or brachial artery. I discussed with the patient and made it very clear that if the fistula was not ligated there was a strong possibility the lesions in his hand would never heal and he would more than likely lose his fourth finger and possibly part of his hand. Patient will undergo a left radiocephalic arteriovenous fistulogram with selective arterial catheterization with angiography to evaluate for steal syndrome with possible ligation and/or revision of the autogenous left radiocephalic arteriovenous fistula. Procedure was explained and described to the patient in detail. Risks, benefits and alternative treatment options were discussed with the patient. Benefits included but were not limited to ascertaining the etiology of the left arm and hand symptoms with possible intervention for resolution of the symptoms. Alternative treatment options included but were not limited to no intervention. Risks included but were not limited to infection, bleeding, loss of arteriovenous access, steal syndrome, possible need for open surgical intervention, anesthetic complications, allergic reaction or complication from the prepping and draping materials, pain, allergic reaction or complication from the contrast media, scarring of the skin, hematoma formation, bruising, possible need for transfusion of blood products, cerebrovascular accident, myocardial infarction, pulmonary embolus, deep venous thrombosis, loss of limb, loss of life , poor results and poor outcome. Risks of not performing the procedure included but were not limited to worsening of the symptoms, with loss of function of the left arm and hand and possibly loss of limb. Patient's questions were answered. Patient voices understanding of these risks, benefits and alternative treatment options. Patient voices acceptance of these risks associated with the procedure and consents to proceed with a fistulogram with selective arterial angiography with possible intervention. There were no promises or guarantees made to the patient regarding the procedure, results of the procedure and/or outcome of the procedure. ANESTHESIA: Local with sedation with 1 mg of Versed 50 g of fentanyl and 10 mL of 2% lidocaine mixed with 0.5% Marcaine SEDATION TIME 10:05 AM to 10:54 AM for a total of 49 minutes. The sedation was administered by the registered nurse in the room attending the case. The car diopulmonary monitoring during sedation was performed by the registered nurse in the room attending the case. Administration of sedation and cardiopulmonary monitoring were performed under my direct supervision and direction. I was present for and directed the entire case. There were no sedation related complications. Patient was stable post sedation and returned to pre-sedation status.. ESTIMATED BLOOD LOSS: 10 mL. IV FLUIDS: 120 mL. HEPARIN: None PROTAMINE: None FLUORO TIME: 1.7 minutes CONTRAST: 5 mL. of Isovue 300 COMPLICATIONS: None DRAINS: None. SPECIMENS: None. IMPLANTS: None PROCEDURE: Patient was taken to the angiography suite, placed supine on the angiography room table and then prepped and draped in a standard surgical fas hion. A procedural time-out was conducted by myself and the team members involved in the procedure confirming the correct patient, procedure and laterality. The left radiocephalic autogenous arteriovenous was then cannulated with a micro-puncture needle after anesthetizing the overlying skin and subcutaneous tissue with 2% lidocaine mixed with 0.5% Marcaine. A micropuncture wire was advanced through the micropuncture needle which was up-sized to a micropuncture sheath. An angled Glidewire was advanced through the micropuncture sheath. A burn catheter and the angled Glidewire were then used to traverse through the arterial venous fistula and entered into the radial artery in a retrograde fashion. A selective radial artery angiogram and fistulogram was then performed. The catheter was placed selectively into the brachial artery and a left forearm and hand angiogram was performed with compression of the arteriovenous fistula with the catheter placed selectively in the left brachial artery. The catheter was then moved into the axillary artery and a selective axillary artery angiogram was performed. The catheter was then advanced into the subclavian artery and a selective subclavian artery angiogram was performed. The catheter was advanced into the aortic arch just distal to the takeoff of the subclavian artery and an aortic arch angiogram was performed. There was no obvious stenosis noted in the subclavian artery, axillary artery, brachial artery, radial artery or, ulnar artery. The skin and subcutaneous tissue overlying the fistula at the wrist were then anesthetized with 2% lidocaine mixed with 0.5% Marcaine. A small incision was made over the fistula the cephalic vein was sharply dissected free and encircled with 0 silk sutures 2 and ligated. And brachial artery angiogram was performed after the ligation which showed better filling of the digits of the left hand. The incision was closed using interrupted 4-0 Monocryl suture in inverted interrupted fashion. The catheter was removed and manual compression applied at the puncture site for hemostasis. Dressings were then applied. Patient tolerated the procedure well. There were no complications. All instrument, sponge and needle counts were correct at the end of the case. Dr. Blair was present for and directed the entire case. Patient was transferred to the recovery area and subsequently discharged to the floor in stable condition. RADIOLOGIC SUPERVISION AND INTERPRETATION: The selective aortic, subclavian, axillary, and tracheal and radial angiogram showed no significant stenosis or occlusions. The radial and ulnar arteries were small with calcific plaquing but no significant stenosis or occlusions noted. The brachial artery angiogram with the fistula patent showed flow into both the radial and ulnar arteries with the flow through the radial artery coursing into the fistula with no flow distal to the arteriovenous anastomosis in the radial artery. The ulnar artery was patent into the hand and filling of the palmar arch with retrograde filling of the radial artery into the fistula via the palmar arch off of the ulnar artery. The fistula was ligated and the angiogram showed the ulnar and radial arteries filling into the hand with no further flow into the fistula. The fistulogram showed the cephalic vein to be widely patent to the central venous system with no central venous stenosis or occlusion noted. CONCLUSION: Patient underwent ligation of the left autogenous radiocephalic arteriovenous fistula with angiography showing improved flow into the hand. PLAN: Patient will use his tunneled central venous catheter for dialysis access at this time and will undergo creation of a new access at a later date once his left hand has healed and he has recovered. Jarrett Blair MD May 31, 2019 12:07
== END 2019-06-05 13:13 | disposition home health service (06) | DRG 255 ==
LOC: M ED 17:48 → M ED INP 22:18 → M PCU 05-24 01:15
PROVIDERS: ADMIT Internal Medicine; ATTEND General Practice
PROC: 5A1D70Z Performance of Urinary Filtration, Intermittent, Less than 6 Hours Per Day (ICD-10-PCS; 2019-05-25)
PROC: B51W1ZZ Fluoroscopy of Dialysis Shunt/Fistula using Low Osmolar Contrast (ICD-10-PCS; 2019-05-28)
PROC: B31H1ZZ Fluoroscopy of Right Upper Extremity Arteries using Low Osmolar Contrast (ICD-10-PCS; 2019-05-28)
PROC: 02HV33Z Insertion of Infusion Device into Superior Vena Cava, Percutaneous Approach (ICD-10-PCS; 2019-05-31)
PROC: B548ZZA Ultrasonography of Superior Vena Cava, Guidance (ICD-10-PCS; 2019-05-31)
PROC: B5131ZA Fluoroscopy of Right Jugular Veins using Low Osmolar Contrast, Guidance (ICD-10-PCS; 2019-05-31)
PROC: B51W1ZZ Fluoroscopy of Dialysis Shunt/Fistula using Low Osmolar Contrast (ICD-10-PCS; 2019-05-31)
PROC: B3121ZZ Fluoroscopy of Left Subclavian Artery using Low Osmolar Contrast (ICD-10-PCS; 2019-05-31)
PROC: B31J1ZZ Fluoroscopy of Left Upper Extremity Arteries using Low Osmolar Contrast (ICD-10-PCS; 2019-05-31)
PROC: B31Q1ZZ Fluoroscopy of Cervico-Cerebral Arch using Low Osmolar Contrast (ICD-10-PCS; 2019-05-31)
PROC: 0PN Upper Bones, Release (ICD-10-PCS; 2019-06-02)
PROC: 0JDK0ZZ Extraction of Left Hand Subcutaneous Tissue and Fascia, Open Approach (ICD-10-PCS; 2019-06-02)
PROC: 0PDN0ZZ Extraction of Left Carpal, Open Approach (ICD-10-PCS; 2019-06-02)
PROC: 0X6T0Z2 Detachment at Left Ring Finger, Mid, Open Approach (ICD-10-PCS; principal; 2019-06-02 08:30)
DX: T82.898A Other specified complication of vascular prosthetic devices, implants and grafts, initial encounter (principal); N18.6 End stage renal disease; I12.0 Hypertensive chronic kidney disease with stage 5 chronic kidney disease or end stage renal disease; I96 Gangrene, not elsewhere classified; M86.142 Other acute osteomyelitis, left hand; L02.512 Cutaneous abscess of left hand; Y83.1 Surgical operation with implant of artificial internal device as the cause of abnormal reaction of the patient, or of later complication, without mention of misadventure at the time of the procedure; E11.22 Type 2 diabetes mellitus with diabetic chronic kidney disease; E87.5 Hyperkalemia; L03.012 Cellulitis of left finger; I16.0 Hypertensive urgency; D63.1 Anemia in chronic kidney disease; E66.9 Obesity, unspecified; H91.3 Deaf nonspeaking, not elsewhere classified; Z68.33 Body mass index [BMI] 33.0-33.9, adult; Z88.0 Allergy status to penicillin; Z88.1 Allergy status to other antibiotic agents; Z79.4 Long term (current) use of insulin; Z79.899 Other long term (current) drug therapy

== ENCOUNTER 2019-08-04 14:11 | Inpatient (IN) | payer MEDICARE, BC ==
[2019-08-04] VITALS (18 sets, daily range): BP systolic 116–165; BP diastolic 55–78
[~2019-08-04] VITALS: Ht 190.5 cm; Wt 121.1 kg
[~2019-08-04 14:11] MED LIST changes: +CLON-412 PO; +CRES10TA; +HYDR10TAB PO; +INSUH10VL SC; +LOSA100T50; +LOSA100T50 PO; +PANT-23 PO; +PANT40TA3; +RENATAB5 PO; +SERT25TA21; +VANC1PLA6 IV; +VELP5CHW PO; +VITA-172 PO
[2019-08-04] MEDS ORDERED: HYDR-3911 PO (14:46)
[2019-08-04] MEDS ORDERED: CLON-412 PO (14:46)
[2019-08-04] MEDS ORDERED: VELP5CHW PO (14:46)
[2019-08-04] MEDS ORDERED: LABETALOL HCL 100 MG/20 ML VIAL IV STA ×2 (15:21→16:21)
[2019-08-04 15:34] LABS: BASO # 0.1 10^3/uL (0.0-0.2); BASO % 0.5 % (0.0-1.0); EOS # 0.1 10^3/uL (0.0-0.5); EOS % 1.2 % (0.0-3.0); HEMATOCRIT 38.6 % (42.0-52.0); HEMOGLOBIN 12.5 g/dl (13.5-17.5); LYMPH # 1.9 10^3/uL (1.5-5.0); LYMPH % 20.3 % (24.0-44.0); MEAN CORPUSCULAR HEMOGLOBIN 29.6 pg (27.0-33.0); MEAN CORPUSCULAR HGB CONC 32.4 g/dl (32.0-36.5); MEAN CORPUSCULAR VOLUME 91.3 fl (80.0-96.0); MONO # 0.9 10^3/uL (0.0-0.8); MONO % 9.3 % (0.0-5.0); NEUTROPHILS # 6.3 10^3/uL (1.5-8.5); NEUTROPHILS % 68.4 % (36.0-66.0); PLATELET COUNT, AUTOMATED 231 10^3/uL (150-450); RED BLOOD COUNT 4.23 10^6/uL (4.30-6.10); WHITE BLOOD COUNT 9.2 10^3/uL (4.0-10.0)
[2019-08-04 15:50] LABS: INR 1.1; PROTHROMBIN TIME 13.9 SECONDS (11.8-14.0)
[2019-08-04 15:51] LABS: PARTIAL THROMBOPLASTIN TIME 32.6 SECONDS (25.0-38.4)
--- NOTE | 2019-08-04 16:03 | REP ---
Chest x-ray: Sitting AP view. History: Dizziness. Hypertension. Evaluate for CHF. Findings: A central venous catheter is noted in place via the right side with its tip in the expected location of the superior vena cava. The lungs are well inflated and clear. The pleural angles are sharp. Heart size is normal. Monitoring electrodes are seen. No infiltrate is seen. Impression: No acute disease. Central venous catheter in place. Electronically Signed by Tam Leon MD 08/04/2019 03:54 P
[2019-08-04 16:15] LABS: ALBUMIN 3.4 GM/DL (3.2-5.2); ALT/SGPT 30 U/L (12-78); BILIRUBIN,DIRECT 0.1 MG/DL (0.0-0.2); BILIRUBIN,TOTAL 0.5 MG/DL (0.2-1.0); BLOOD UREA NITROGEN 41 MG/DL (7-18); CARBON DIOXIDE LEVEL 27 MEQ/L (21-32); CHLORIDE LEVEL 98 MEQ/L (98-107); CK-MB VALUE MASS 2.5 NG/ML (<3.6); CPK CREATINE PHOSPHOKINASE 77 U/L (39-308); CREATININE FOR GFR 7.13 MG/DL (0.70-1.30); FREE T4 0.73 NG/DL (0.76-1.46); GLOMERULAR FILTRATION RATE 8.8 (>60); GLUCOSE, FASTING 120 MG/DL (70-100); MB/CK RELATIVE INDEX 3.25 (< OR =4); POTASSIUM SERUM 4.8 MEQ/L (3.5-5.1); SODIUM LEVEL 137 MEQ/L (136-145); TROPONIN I < 0.02 NG/ML (< 0.10)
[2019-08-04] MEDS ORDERED: NITROPRUSSIDE SODIUM 50 MG in IV 1 EA IV SCH (16:45)
[2019-08-04] MEDS ORDERED: GLUCAGON FOR INJ 1 MG VIAL (J1610) SC PRN (17:15)
[2019-08-04] MEDS ORDERED: GLUCOSE 4 GM CHEW TABLET PO PRN (17:15)
[2019-08-04] MEDS ORDERED: DEXTROSE 50% 50 ML SYRINGE IV PRN (17:15)
[2019-08-04] MEDS: HumaLOG INSULIN (NovoLOG) PER UNIT SC SCH ×2 (17:30→21:00)
--- NOTE | 2019-08-04 17:39 | HPEPDOC ---
General Date of Admission Aug 04, 2019 at 16:38 Date of Service: Aug 04, 2019 Chief Complaint The patient is a 49-year-old male admitted with a reason for visit of Dizziness. 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 No other associated symptom. There was no dizziness while lying. In ER pt was found with vitals of BP 244/123, HR 67, RR 22, Temp 97.3. CT head- no acute pathology, EKG- NSR. Pt was given iv labatolol 10 mg, 20 mg but his BP was not controlled so he was started on iv Nitroprusside gtt. Hospitalist service was consulted to admit the pt for further management. Pt was seen and examined at bedside in ER. Family members at bedside. Pt was lying comfortably in bed. Pt denied any dizziness while lying down but c/o dizziness while trying to get out of bed. Pt denied any other associated symptom. Pt is deaf so history was obtained through eviscerator. Home Medications Scheduled Cholecalciferol (Vitamin D3) (Vitamin D3) 5,000 Unit Capsule, 5,000 UNIT PO 2XW, (Reported) TUESDAY AND TUESDAY MORNING Clonidine HCl (Clonidine HCl) 0.1 Mg Tablet, 0.3 MG PO DAILY, (Reported) Cyanocobalamin (Vitamin B-12) (Vitamin B-12) 500 Mcg Tablet, 500 MCG PO DAILY, (Reported) Folic Acid/Vit B Complex and C (Natasha-Rajiv Tablet) 0.8 Mg Tablet, 1 TAB PO DAILY, (Reported) Glipizide (Glipizide) 10 Mg Tablet, 20 MG PO BID, (Reported) Hydralazine HCl (Hydralazine HCl) 50 Mg Tablet, 50 MG PO TID, (Reported) Insulin Detemir (Levemir Flextouch) 100 Unit/1 Ml Insuln.pen, 32 UNITS SC BID, (Reported) Insulin Human Lispro (Novolog) 100 Unit/1 Ml Vial, 1 DOSE SC AC, (Reported) 26 UNITS + SLIDING SCALE Losartan Potassium (Losartan Potassium) 100 Mg Tablet, 100 MG PO DAILY, (Reported) Metoprolol Tartrate (Metoprolol Tartrate) 25 Mg Tablet, 25 MG PO BID, (Reported) Pantoprazole Sodium (Pantoprazole Sodium) 40 Mg Tablet.dr, 40 MG PO DAILY, (Reported) Rosuvastatin Calcium (Crestor) 10 Mg Tablet, 10 MG PO QPM, (Reported) TAKES AT DINNERTIME Sertraline Hcl (Sertraline HCl) 25 Mg Tablet, 25 MG PO DAILY, (Reported) Sucroferric Oxyhydroxide (Velphoro) 500 Mg Tab.chew, 2 TAB PO AC, (Reported) Allergies Coded Allergies: Penicillins (Verified Allergy, Unknown, 01/29/19) bacitracin (Verified Allergy, Unknown, 01/29/19) neomycin (Verified Allergy, Unknown, 01/29/19) polymyxin B (Verified Allergy, Unknown, 01/29/19) Past Medical History Medical History HTN, ESRD on HD(MWF), GERD, Obesity, DM type 2, HLD Family History Significant Family History: Noncontributory Father had CVA Social History * Smoker: Denies, non-smoker Alcohol: Denies A-FIB/CHADSVASC A-FIB History Current/History of A-Fib/PAF?: No Current PO Anticoag Therapy: No Review of Systems Other systems 10 points review of system was performed and it was negative except as per HPI Physical Examination General Exam: Positive: Alert, Cooperative, No Acute Distress Eye Exam: Positive: PERRLA ENT Exam: Positive: Atraumatic, Mucous membr. moist/pink Neck Exam: Positive: Supple Chest Exam: Positive: Clear to auscultation, Normal air movement Heart Exam: Positive: Rate Normal Abdomen Exam: Positive: Normal bowel sounds, Soft Skin Exam: Positive: Nl turgor and temperature Neuro Exam: Positive: Normal Speech, Strength at 5/5 X4 ext, Cranial Nerves 3- 12 NL, Other (could not perform gait examination due to c/o dizziness ) Psych Exam: Positive: Mental status NL Vital Signs Vital Signs Date Time Temp Pulse Resp B/P (MAP) Pulse Ox O2 Delivery O2 Flow Rate FiO2 08/04/19 16:31 67 259/125 08/04/19 16:16 99 08/04/19 15:52 97.3 08/04/19 14:12 22 Laboratory Data Labs 24H Laboratory Tests 2 08/04/19 14:33: Bedside Glucose (Misc Panel) 149H 08/04/19 15:27: Immature Granulocyte % (Auto) 0.3, Neutrophils (%) (Auto) 68.4H, Lymphocytes (%) (Auto) 20.3L, Monocytes (%) (Auto) 9.3H, Eosinophils (%) (Auto) 1.2, Basophils (%) (Auto) 0.5, Neutrophils # (Auto) 6.3, Lymphocytes # (Auto) 1.9, Monocytes # (Auto) 0.9H, Eosinophils # (Auto) 0.1, Basophils # (Auto) 0.1, Nucleated Red Blood Cells % (auto) 0.0, Prothrombin Time 13.9, Prothromb Time International Ratio 1.10, Activated Partial Thromboplast Time 32.6, Anion Gap 12, Glomerular Filtration Rate 8.8L, Calcium Level 8.0L, Total Bilirubin 0.5, Direct Bilirubin 0.1, Aspartate Amino Transf (AST/SGOT) 16, Alanine Aminotransferase (ALT/SGPT) 30, Alkaline Phosphatase 82, Total Creatine Kinase 77, Creatine Kinase MB 2.5, Creatine Kinase MB Relative Index 3.25, Troponin I < 0.02, Total Protein 8.0, Albumin 3.4, Albumin/Globulin Ratio 0.74L, Thyroid Stimulating Hormone (TSH) 2.220, Free Thyroxine 0.73L CBC/BMP Laboratory Tests 08/04/19 15:27 Assessment/Plan 49 y/o M c/o dizziness while moving for past 1 day, found to have elevated BP Labs and imaging studies reviewed. WBC 9.2 Hb 12.5 Plats 231 BUN/Cr 41/7.13 Blood glucose 120 Impression- dizziness most probably secondary to Accelerated hypertension Plan 1. Accelerated HTN will continue home medication clonidine 0.3 mg daily, losartan 100 mg, Hydralazine 50 mg TID, will increase metoprolol to 50 mg BID will continue monitoring BP closely in ICU and adjust antihypertensive meds doses. Pt stated that he is complaint to medication and denied missing any doses. will f/u MRI head 2. DM type home insulin, ISS, diabetic diet 3. Obesity supportive care 4. GERD home meds 5. ESRD on HD to resume HD as scheduled as o/p 6. HLD Home meds DVT ppx- SCD, will avoid chemical ppx in view of accelerated HTN MRI head showed - Acute infarct of the left francisco measuring 8 x 8 mm Pt was outside window period for tPA will consulted oncall neurologist as per recommendation will give aspirin 325 mg, Crestor 40 mg, neuro checks will allow permissive HTN target systolic BP range 180 to 150. will f/u with neurology Plan / VTE VTE Prophylaxis Ordered?: Yes BERNY TARIQ MD Aug 04, 2019 17:39
[2019-08-04] MEDS ORDERED: ROSUVASTATIN 10 MG TAB (CRESTOR) PO SCH (18:00)
[2019-08-04] MEDS: NITROPRUSSIDE SODIUM 50 MG in IV 1 EA IV SCH (18:28)
--- NOTE | 2019-08-04 18:36 | REPVR ---
PROCEDURE INFORMATION: Exam: MR Head Without Contrast Exam date and time: 08/04/2019 6:14 PM Clinical history: 49 years old, male; Patient HX: PT states dizziness with standing; Additional info: CVA TECHNIQUE: Imaging protocol: MR of the head without contrast. COMPARISON: CT Head without contrast 08/04/2019 2:45 PM FINDINGS: Brain: Acute infarct of the left francisco measuring 8 x 8 mm. Mild chronic microvascular ischemic changes. Ventricles: Normal. No ventriculomegaly. Bones/joints: Unremarkable. Soft tissues: Unremarkable. Sinuses: Normal as visualized. No acute sinusitis. Mastoid air cells: Normal as visualized. No mastoid effusion. Orbits: Unremarkable. Other findings: No hemorrhage. IMPRESSION: Acute infarct of the left francisco measuring 8 x 8 mm. Electronically signed by: Trev Heller On 08/04/2019 18:36:11 PM
--- NOTE | 2019-08-04 18:38 | REPVR ---
PROCEDURE INFORMATION: Exam: MR Angiogram Head Without Contrast, Arteries Exam date and time: 08/04/2019 6:14 PM Clinical history: 49 years old, male; Dizziness and giddiness; Patient HX: PT states dizziness with standing; Additional info: CVA TECHNIQUE: Imaging protocol: MR angiogram head without contrast. Exam focused on the arteries. COMPARISON: CT Head without contrast 08/04/2019 2:45 PM FINDINGS: Right internal carotid artery: Unremarkable. Intracranial segment is patent with no significant stenosis. No aneurysm. Right anterior cerebral artery: Unremarkable. No occlusion or significant stenosis. No aneurysm. Right middle cerebral artery: Mild stenosis of the M1 segment of right middle cerebral artery. Right posterior cerebral artery: Unremarkable. No occlusion or significant stenosis. No aneurysm. Right vertebral artery: Unremarkable. No occlusion or significant stenosis. No aneurysm. Left internal carotid artery: Unremarkable. Intracranial segment is patent with no significant stenosis. No aneurysm. Left anterior cerebral artery: Unremarkable. No occlusion or significant stenosis. No aneurysm. Left middle cerebral artery: Unremarkable. No occlusion or significant stenosis. No aneurysm. Left posterior cerebral artery: Unremarkable. No occlusion or significant stenosis. No aneurysm. Left vertebral artery: Unremarkable. No occlusion or significant stenosis. No aneurysm. Basilar artery: Unremarkable. No occlusion or significant stenosis. No aneurysm. IMPRESSION: No acute abnormality. Electronically signed by: Trev Heller On 08/04/2019 18:38:51 PM
[2019-08-04] MEDS ORDERED: ROSUVASTATIN 10 MG TAB (CRESTOR) PO ONE (20:00)
[2019-08-04] MEDS ORDERED: ASPIRIN 81 MG CHEW TABLET PO ONE (20:00)
[2019-08-04] MEDS: SUCROFERRIC OXYHYDROXIDE 500MG CHEW TAB (VELPHORO) PO SCH (21:14)
[2019-08-04] MEDS: METOPROLOL TART 50 MG TAB PO SCH (21:15)
[2019-08-04] MEDS: **hydrALAZINE** 50 MG TAB PO SCH (21:15)
[2019-08-04] MEDS: LEVEMIR (INSULIN DETEMIR) 1 UNITS/0.01ML SC SCH (21:17)
[2019-08-05] VITALS (57 sets, daily range): BP systolic 108–242; BP diastolic 56–111
[2019-08-05 05:16] LABS: HEMATOCRIT 37.7 % (42.0-52.0); HEMOGLOBIN 12.4 g/dl (13.5-17.5); MEAN CORPUSCULAR HEMOGLOBIN 29.8 pg (27.0-33.0); MEAN CORPUSCULAR HGB CONC 32.9 g/dl (32.0-36.5); MEAN CORPUSCULAR VOLUME 90.6 fl (80.0-96.0); PLATELET COUNT, AUTOMATED 218 10^3/uL (150-450); RED BLOOD COUNT 4.16 10^6/uL (4.30-6.10); WHITE BLOOD COUNT 9.9 10^3/uL (4.0-10.0)
[2019-08-05 05:58] LABS: ALBUMIN 3.3 GM/DL (3.2-5.2); BILIRUBIN,TOTAL 0.6 MG/DL (0.2-1.0); CALCIUM LEVEL 8.6 MG/DL (8.5-10.1); CREATININE FOR GFR 8.3 MG/DL (0.70-1.30); GLOMERULAR FILTRATION RATE 7.4 (>60)
--- NOTE | 2019-08-05 06:34 | REP ---
CT brain without contrast: History: Hypertension. Dizziness. Evaluate for CVA. CT findings: Digital preliminary business project manager radiograph is unremarkable. Bone window settings demonstrate an intact bony calvarium. Visualized paranasal sinuses are clear. No intraorbital abnormality is seen. Vascular calcification is seen bilaterally in the scalp soft tissues. There is fairly heavy vascular calcification in the distal internal carotid and to a lesser extent, common distal vertebral arteries. There is a tiny old lacunar infarct in the basal ganglia on the right. No acute infarction is seen. No intracranial hemorrhage is observed. Mild small vessel changes are noted. Impression: Vascular calcification. Tiny old lacunar infarct right basal ganglia. No acute infarction is seen. No mass or hemorrhage is noted. Electronically Signed by Tam Leon MD 08/05/2019 08:25 A
[2019-08-05] MEDS: NITROPRUSSIDE SODIUM 50 MG in IV 1 EA IV SCH (06:44)
[2019-08-05] MEDS: HumaLOG INSULIN (NovoLOG) PER UNIT SC SCH ×4 (07:30→21:00)
[2019-08-05 08:09] LABS: CHOLESTEROL RISK RATIO 4.25 (<5)
[2019-08-05] MEDS: SUCROFERRIC OXYHYDROXIDE 500MG CHEW TAB (VELPHORO) PO SCH ×3 (08:26→17:40)
[2019-08-05] MEDS: **hydrALAZINE** 50 MG TAB PO SCH ×3 (08:28→20:02)
[2019-08-05] MEDS: LOSARTAN 50 MG TAB PO SCH (08:28)
[2019-08-05] MEDS: SERTRALINE HCL 25 MG TABLET PO SCH (08:29)
[2019-08-05] MEDS: CYANOCOBALAMIN 500 MCG TAB PO SCH (08:29)
[2019-08-05] MEDS: METOPROLOL TART 50 MG TAB PO SCH (08:29)
[2019-08-05] MEDS: PANTOPRAZOLE 40MG TAB (PROTONIX) PO SCH (08:30)
[2019-08-05] MEDS ORDERED: cloNIDine 0.1 MG TAB PO SCH ×2 (09:00→21:00)
[2019-08-05] MEDS: LEVEMIR (INSULIN DETEMIR) 1 UNITS/0.01ML SC SCH ×2 (09:26→21:00)
[2019-08-05 10:14] LABS: HEMOGLOBIN A1c 7.7 %
[2019-08-05] MEDS ORDERED: LABETALOL HCL 100 MG/20 ML VIAL IV PRN (10:45)
[2019-08-05] MEDS ORDERED: METOPROLOL TART 50 MG TAB PO ONE (11:15)
--- NOTE | 2019-08-05 12:07 | ECGEPIP ---
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
[2019-08-05] MEDS: ASPIRIN 325 MG TAB PO SCH (13:14)
[2019-08-05] MEDS: cloNIDine 0.1 MG TAB PO SCH ×2 (15:13→20:02)
--- NOTE | 2019-08-05 16:58 | IPNPDOC ---
Subjective Date Seen The patient was seen on 08/05/19. Subjective Chief Complaint/HPI dizziness Events since last encounter Pt stated that his dizziness has significantly improved. Pt was seen with ic design engineer at bedside. Objective Physical Examination General Exam: Positive: Alert, Cooperative, No Acute Distress Eye Exam: Positive: PERRLA ENT Exam: Positive: Mucous membr. moist/pink Neck Exam: Positive: Supple Chest Exam: Positive: Clear to auscultation, Normal air movement Heart Exam: Positive: Rate Normal Abdomen Exam: Positive: Normal bowel sounds, Soft Skin Exam: Positive: Nl turgor and temperature Neuro Exam: Positive: Normal Speech, Strength at 5/5 X4 ext, Cranial Nerves 3- 12 NL, Other (could not perform gait examination due to c/o dizziness ) Psych Exam: Positive: Mental status NL Assessment /Plan Assessment 49 y/o M initially came c/o dizziness was admitted for accelerated hypertension and acute ischemic stroke Labs and imaging studies reviewed. Impression- dizziness most probably secondary to acute and Accelerated hypertension Plan 1. Accelerated HTN resolved will continue home medication , losartan 100 mg, will increase metoprolol to 100 mg BID, clonidine 0.3 mg TID and hydralazine 50 mg TID s/p nitroprusside gtt will continue monitoring BP closely and adjust antihypertensive meds doses. Pt stated that he is complaint to medication and denied missing any doses. will f/u MRI head 2. Acute ischemic stroke MRI head showed - Acute infarct of the left francisco measuring 8 x 8 mm Aspirin, Crestor will allow permissive hypertension with systolic BP goal of 180 to 150 will f/u with neurology service will f/u ECHO 3. DM type home insulin, ISS, diabetic diet 4. Obesity supportive care 5. GERD home meds 6. ESRD on HD to resume HD will f/u with nephrology service 7. HLD Home meds DVT ppx- SCD, Plan/VTE VTE Prophylaxis Ordered?: Yes VS, I&O, 24H, Fishbone Vital Signs/I&O Vital Signs Date Time Temp Pulse Resp B/P (MAP) Pulse Ox O2 Delivery O2 Flow Rate FiO2 08/05/19 16:00 98.0 59 19 171/72 (105) 97 Room Air I&O- Last 24 Hours up to 6 AM 08/05/19 06:00 Intake Total 1082 ml Output Total 350 ml Balance 732 ml Laboratory Data 24H LABS Laboratory Tests 2 08/04/19 18:40: Bedside Glucose (Misc Panel) 81 08/04/19 20:47: Bedside Glucose (Misc Panel) 164H 08/05/19 05:02: Bedside Glucose (Misc Panel) 46L, Nucleated Red Blood Cells % (auto) 0.0, Anion Gap 13, Glomerular Filtration Rate 7.4L, Estimated Mean Plasma Glucose 174H, Hemoglobin A1c 7.7, Calcium Level 8.6, Total Bilirubin 0.6, Aspartate Amino Transf (AST/SGOT) 14, Alanine Aminotransferase (ALT/SGPT) 28, Alkaline Phosphatase 75, Total Protein 8.0, Albumin 3.3, Albumin/Globulin Ratio 0.70L, Triglycerides Level 186H, Total Cholesterol 170, LDL Cholesterol 93, Non-HDL Cholesterol (LDL + VLDL) 130, Total HDL Cholesterol 40, Cholesterol/HDL Ratio 4.250 08/05/19 05:19: Bedside Glucose (Misc Panel) 101 08/05/19 12:28: Bedside Glucose (Misc Panel) 204H CBC/BMP Laboratory Tests 08/05/19 05:02 BERNY TARIQ MD Aug 05, 2019 16:58
[2019-08-05] MEDS: hydrALAZINE INJ 20 MG/ML VIAL IV PRN (18:14)
[2019-08-05] MEDS: METOPROLOL TARTRATE 100 MG TAB PO SCH (20:01)
[2019-08-05] MEDS: ROSUVASTATIN 10 MG TAB (CRESTOR) PO SCH (20:02)
[2019-08-06] VITALS (35 sets, daily range): BP systolic 91–205; BP diastolic 48–84
[2019-08-06] MEDS: hydrALAZINE INJ 20 MG/ML VIAL IV PRN (01:36)
--- NOTE | 2019-08-06 06:36 | REP ---
MR angiography of the carotids without contrast: History: Left pontine stroke. Findings: Vertebral arteries are widely patent codominant. The common carotid arteries are unremarkable bilaterally. There is no significant plaquing in the bulb or proximal ICA on either side. No stenosis is seen. The cervical internal carotid arteries are unremarkable bilaterally. Impression: Unremarkable MR angiography of the carotids without contrast. Electronically Signed by Tam Leon MD 08/06/2019 08:34 A
--- NOTE | 2019-08-06 06:50 | CR ---
DATE OF CONSULTATION: 08/05/2019 CONSULTATION FOR: Dr. Tejinder Vu REASON FOR CONSULTATION: To assist in the management of end-stage renal disease. HISTORY OF PRESENT ILLNESS: Mr. Morris is a 49-year-old gentleman who is deaf and mute. He has known history of hypertension and end-stage renal disease due to which he has been on maintenance hemodialysis. He has multiple other chronic medical problems which are mentioned below in the past medical and surgical history. The patient was admitted last evening due to dizziness and possible stroke. He was noticed to have transient ischemic attack (TIA). His blood pressure was 244/123 on admission. The patient is currently receiving maintenance hemodialysis three times a week on Tuesday, Tuesday and Tuesday schedule and was last dialyzed on Tuesday. PAST MEDICAL AND SURGICAL HISTORY (Significant for:) 1. Longstanding history of diabetes. 2. Hypertension. 3. End-stage renal disease. 4. Gastroesophageal reflux disease. 5. Hyperlipidemia. 6. Anemia of chronic kidney disease. 7. Peripheral vascular disease. 8. Infection in his left hand following ischemic finger infection due to steal syndrome. 9. Status post ligation of AV fistula. PAST SURGICAL HISTORY (Significant for): 1. AV fistula in left arm which has been now ligated. 2. Carpal tunnel surgery of left hand. 3. Fourth finger amputation. 4. Abscess drained from left hand. PERSONAL AND SOCIAL HISTORY: The patient is deaf and mute. He is and lives with his family. He does not smoke or drink. FAMILY HISTORY: Significant for stroke in his father. MEDICATIONS (His home medications include): - vitamin D 5000 units twice a week - clonidine 0.3 mg daily - vitamin B12 500 mcg daily - multivitamin 1 tablet daily - glipizide 10 mg twice a day - hydralazine 50 mg three times a day - losartan 100 mg daily - metoprolol 25 mg twice a day - pantoprazole 40 mg daily - Crestor 10 mg daily - sertraline 25 mg daily - Velphoro 500 mg 2 tablets with meals - Levemir 32 units twice a day - NovoLog per sliding scale. ALLERGIES: - PENICILLIN - NEOMYCIN - BACITRACIN - POLYMYXIN REVIEW OF SYSTEMS: The patient's mother and taxation consultant are present in the room. The patient denies any fever or chills. He was just feeling dizzy and had a problem with walking yesterday due to which he was brought to the emergency room. He denies any headache at present. The patient is unable to talk, however, he uses sign language. Nose and throat are unremarkable. He denies any visual problems at present. Cardiovascular system is significant for uncontrolled hypertension. The patient denies any chest pain or dyspnea. Respiratory system is negative for cough or hemoptysis. GI system negative for nausea, vomiting or diarrhea. system is negative for dysuria or hematuria. Endocrine system is significant for type 2 diabetes, hyperlipidemia and secondary hyperparathyroidism. Psychosocial system negative for depression or anxiety. Neurological system is significant for balance problems and dizziness yesterday. Hematological system is significant for anemia of chronic kidney disease. PHYSICAL EXAMINATION: The patient is laying in the bed in the intensive care unit. His temperature is 98 degrees Fahrenheit, heart rate 60 per minute and respiratory rate 16 per minute. At present, his blood pressure is about 150/80 mmHg while it has fluctuated significantly. His neck is supple and without jugular venous distention (JVD) or thyroid enlargement. Ears, nose and throat are unremarkable. Heart exam reveals regular S1 and S2. Lungs: Clear to auscultation. Abdomen: Soft and nontender. Bowel sounds normal. Extremities: Without any cyanosis or clubbing. His left fourth finger is surgically absent. He has muscle wasting in both hands. No edema of lower extremities noted. Neurologically, he is at his baseline mentation without a focal deficit. LABORATORY DATA: WBC count is 9.9, hemoglobin 12.4 and hematocrit 37.7. Sodium is 137, potassium 4.0, CO2 24, BUN 50 and creatinine 8.30. Glucose 54 earlier and a repeat was 174. A1c 7.7%. Calcium 8.6. Last evening, his TSH level was 2.22. Brain MRI and MRA done in the emergency room, acute bleed, however, he is noticed to have acute infarct of the left francisco measuring to 8 mm. PROBLEMS: 1. End-stage renal disease. The patient is regularly dialyzed on Tuesday, Tuesday and Tuesday schedule. He was last dialyzed on Tuesday and his volume status is well-compensated. We will plan to dialyze him tomorrow. 2. Hypertension. His blood pressure is uncontrolled, traditionally it has been on the high side. We have adjusted his medications with some success. We will probably need to make further adjustments in his antihypertensive meds. I would suggest to not resume intravenous Nipride, rather increase the dose of his oral medications, including clonidine and hydralazine. He should also continue with losartan 100 mg daily and there is no reason to avoid angiotensin receptor jeff as he already has end-stage renal disease. 3. Acute stroke. Most likely this is embolic stroke. The patient has not been anticoagulated. He is now on aspirin 325 mg daily. 4. Anemia. Mild anemia which does not need any urgent intervention at present. I spoke with the patient with the help of the taxation consultant and answered questions. I have explained the need for adjustment in his medications and plan for dialysis for tomorrow. Thank you for involving me in the care of Mr. Morris. I will follow him along with you.
[2019-08-06] MEDS: HumaLOG INSULIN (NovoLOG) PER UNIT SC SCH ×4 (07:30→20:21)
--- NOTE | 2019-08-06 07:45 | CR ---
DATE OF CONSULTATION: 08/05/2019 REFERRING PHYSICIAN: Dr. Tejinder Vu REASON FOR CONSULTATION: Dizziness and imbalance. HISTORY OF PRESENT ILLNESS: Miquel Morris is a 49-year-old man with history of end-stage renal disease and hypertension on hemodialysis who has been feeling dizzy for the last 1 week and his blood pressure was running very high for the last 1 week. His hemoglobin A1c was noted to be 6 recently. He became more dizzy and had trouble walking yesterday. He denies any headaches. He has numbness and tingling of his arms and has history of Dupuytren contractures. He denies any back pain. He has off-and-on neck pain. The patient is deaf and has baseline trouble speaking due to impaired speech from impaired hearing since childhood. There was no alteration in his speech over last couple of days. The patient feels 75% better today compared to yesterday. He walked with assistance to use the restroom. Upon arrival yesterday in the emergency department, his blood pressure was noted to be 244/123. The patient was started on nitroprusside infusion. The patient's blood pressure is much better controlled currently. DIAGNOSTIC STUDIES: MRI scan of brain showed a small 8 mm left pontine acute ischemic stroke. MRA brain was unremarkable. PAST MEDICAL HISTORY: End stage renal disease on hemodialysis, hypertension, dyslipidemia. CURRENT MEDICATIONS: - clonidine 0.3 mg p.o. daily - vitamin B12 500 mcg by mouth daily - folic acid 1 mg by mouth daily - glipizide 10 mg 2 tablets by mouth twice a day - hydralazine 50 mg by mouth three times a day - insulin Levemir 32 units subcutaneous twice a day - insulin NovoLog sliding scale - losartan 100 mg by mouth daily - metoprolol 25 mg by mouth twice a day - Protonix 40 mg by mouth daily - Crestor 10 mg by mouth daily - Sertraline 25 mg by mouth daily - Velphoro 2 tablets by mouth AC ALLERGIES: - PENICILLIN - BACITRACIN - NEOMYCIN - POLYMYXIN FAMILY HISTORY: Father had stroke. SOCIAL HISTORY: Denies smoking, alcohol or illicit drugs. He has developmental hearing deficit and speech deficit. REVIEW OF SYSTEMS: All systems were reviewed with the patient's mother who was present in the room with the help of an manager payment and were found to be noncontributory. PHYSICAL EXAMINATION: Blood pressure 108/58, 99% saturation on room air, pulse 60, respiratory rate 17. Heart: Regular rate and rhythm. Lungs: Clear to auscultation. Abdomen: Soft, nontender, nondistended. No pedal edema. No musculoskeletal abnormalities. No rash. No signs of meningeal irritation. The patient is awake, alert, oriented to place, person and time. He has developmental hearing and speech impairment. Tongue and uvula are midline. No facial weakness. Extraocular muscles are intact with mild nystagmus. Nystagmus seen gaze evoked. Visual trevino are full to confrontation. 5/5 strength in all four extremities. He has mild right sided dysmetria. Deep tendon flexes are 1+ in arms and knees and absent at ankle. He has decreased cold and pinprick vibration sensation in his feet. Gait is mildly unsteady. ASSESSMENT: 1. 8 mm left pontine acute ischemic stroke. 2. Dizziness and imbalance related to above. 3. Diabetes with diabetic peripheral neuropathy. 4. End-stage renal disease on hemodialysis. 5. Developmental hearing and speech impairment. PLAN: 1. MRA of carotid and vertebral arteries. 2. Aspirin 325 mg by mouth daily. 3. Crestor 10 mg by mouth daily. 4. Physical and occupational therapy. 5. Continue telemetry monitoring and perform echocardiogram.
[2019-08-06 08:04] LABS: HEMATOCRIT 35.7 % (42.0-52.0); HEMOGLOBIN 11.7 g/dl (13.5-17.5)
[2019-08-06] MEDS: SUCROFERRIC OXYHYDROXIDE 500MG CHEW TAB (VELPHORO) PO SCH ×3 (08:28→16:45)
[2019-08-06] MEDS: SERTRALINE HCL 25 MG TABLET PO SCH (08:29)
[2019-08-06] MEDS: CYANOCOBALAMIN 500 MCG TAB PO SCH (08:29)
[2019-08-06] MEDS: ASPIRIN 325 MG TAB PO SCH (08:29)
[2019-08-06] MEDS: **hydrALAZINE** 50 MG TAB PO SCH ×3 (08:29→20:20)
[2019-08-06] MEDS: PANTOPRAZOLE 40MG TAB (PROTONIX) PO SCH (08:29)
[2019-08-06] MEDS: cloNIDine 0.1 MG TAB PO SCH (08:30)
[2019-08-06] MEDS: LOSARTAN 50 MG TAB PO SCH (08:30)
[2019-08-06] MEDS ORDERED: ASPIRIN 81 MG ENTERIC TAB PO SCH (09:00)
[2019-08-06] MEDS: LEVEMIR (INSULIN DETEMIR) 1 UNITS/0.01ML SC SCH (09:00)
[2019-08-06] MEDS: METOPROLOL TARTRATE 100 MG TAB PO SCH (09:00)
[2019-08-06 10:26] LABS: ALBUMIN 3.2 GM/DL (3.2-5.2); CALCIUM LEVEL 8.7 MG/DL (8.5-10.1); CREATININE FOR GFR 9.97 MG/DL (0.70-1.30); PHOSPHORUS LEVEL 8.8 MG/DL (2.5-4.9); POTASSIUM SERUM 5.6 MEQ/L (3.5-5.1)
--- NOTE | 2019-08-06 13:04 | ECHO ---
DATE OF PROCEDURE: 08/06/2019 AGE: 49. GENDER: Male. HEIGHT: 75 inches. WEIGHT: 271 pounds. BODY SURFACE AREA: 2.5 sq m. INPATIENT: Intensive care unit (ICU), room 3207. REFERRING PHYSICIAN: Tejinder Vu MD INDICATION: Cerebrovascular accident (CVA). Hypertension. MEASUREMENTS: 2D measurements: RV - 4.8 cm LV - 5.4 cm Septum 1.3 cm Posterior wall 1.3 cm Aortic root 3.5 cm LA - 4.5 cm LVEF 65% Doppler measurements: AV - 0.9 m/s LVOT - 0.8 m/s LVOT diameter 2.2 cm MV - E 89 A 43 EA ratio 2.1 Early mitral deceleration time 250 ms E prime 6.7 A prime 8.5 E prime (lateral) 9.6 Average E/E prime ratio 10.8, PCWP 15.4 mmHg PV - 0.75 m/s Pulmonary artery acceleration time 165 ms PASP - 10 mmHg IVC - 1.8 cm COMMENTS: Sinus bradycardia with first-degree AV block. Technically-challenging study in light of the patient's body habitus, but diagnostically useful information was still obtained. M-mode and two-dimensional echocardiography was performed with pulsed, continuous wave, color flow, and tissue Doppler studies. Mild concentric left ventricle hypertrophy with normal wall motion. Mild to moderate left atrial enlargement with grade 2 diastolic dysfunction and mildly elevated estimated mean left atrial pressure. Borderline to mildly dilated right heart chambers with normal wall motion and current Doppler assessment of pulmonary arterial pressure. Normal inferior vena cava (IVC) size and collapse against an elevated central venous pressure. Moderate aortic valvular sclerosis without stenosis or insufficiency. Normal aortic root size. Mildly thickened mitral annulus but normal leaflet thickness and excursion with no functional abnormality. Normal-appearing tricuspid valve with trace insufficiency. No apparent intracardiac mass or pericardial effusion. In light of the patient's body habitus and the above aortic valve findings, if a cardiac source of embolic material seriously suspect, we would recommend a transesophageal echocardiogram to further define aortic valve structure and function and rule out a sessile vegetation.
--- NOTE | 2019-08-06 17:25 | IPNPDOC ---
Subjective Date Seen The patient was seen on 08/06/19. Subjective Chief Complaint/HPI dizziness Events since last encounter Pt c/o mild dizziness but stated that it is getting better Objective Physical Examination General Exam: Positive: Alert, Cooperative, No Acute Distress Eye Exam: Positive: PERRLA ENT Exam: Positive: Mucous membr. moist/pink Neck Exam: Positive: Supple Chest Exam: Positive: Clear to auscultation, Normal air movement Heart Exam: Positive: Rate Normal Abdomen Exam: Positive: Normal bowel sounds, Soft Skin Exam: Positive: Nl turgor and temperature Neuro Exam: Positive: Strength at 5/5 X4 ext, Cranial Nerves 3-12 NL, Other (could not perform gait examination due to c/o dizziness ) Psych Exam: Positive: Mental status NL Assessment /Plan Assessment 49 y/o M initially came c/o dizziness was admitted for accelerated hypertension and acute ischemic stroke Labs and imaging studies reviewed. Impression- dizziness most probably secondary to acute and Accelerated hypertension Plan 1. Accelerated HTN resolved Pt BP was well controlled after HD today. will decrease the dose of antihypertensive meds back to home doses Clonidine 0.3 mg daily, Metoprolol 25 mg BID and hydralazine 25 mg TID. will continue home medication losartan 100 mg, s/p nitroprusside gtt will continue monitoring BP closely and adjust antihypertensive meds doses. 2. Acute ischemic stroke MRI head showed - Acute infarct of the left francisco measuring 8 x 8 mm Aspirin, Crestor will f/u with neurology service will f/u ECHO 3. DM type home insulin, ISS, diabetic diet Home insulin dose was discontinued to episodes of hypoglycemia will monitor blood glucose and consider restarting levemir at lower dose 4. Obesity supportive care 5. GERD home meds 6. ESRD on HD to resume HD will f/u with nephrology service 7. HLD Home meds DVT ppx- SCD, Plan/VTE VTE Prophylaxis Ordered?: Yes VS, I&O, 24H, Fishbone Vital Signs/I&O Vital Signs Date Time Temp Pulse Resp B/P (MAP) Pulse Ox O2 Delivery O2 Flow Rate FiO2 08/06/19 16:45 165/79 08/06/19 16:00 98.2 64 18 96 Room Air I&O- Last 24 Hours up to 6 AM 08/06/19 06:00 Intake Total 2802 ml Balance 2802 ml Laboratory Data 24H LABS Laboratory Tests 2 08/05/19 17:32: Bedside Glucose (Misc Panel) 106H 08/05/19 21:26: Bedside Glucose (Misc Panel) 101 08/06/19 01:24: Bedside Glucose (Misc Panel) 46L 08/06/19 08:08: Anion Gap 13, Glomerular Filtration Rate 6.0L, Calcium Level 8.7, Phosphorus Level 8.8H, Albumin 3.2 08/06/19 08:13: Bedside Glucose (Misc Panel) 105 08/06/19 12:05: Bedside Glucose (Misc Panel) 123H 08/06/19 16:37: Bedside Glucose (Misc Panel) 218H CBC/BMP Laboratory Tests 08/06/19 07:51 08/06/19 08:08 BERNY TARIQ MD Aug 06, 2019 17:25
--- NOTE | 2019-08-06 19:01 | IPN ---
DATE OF VISIT: 08/06/2019 Mr. Morris is seen this morning during dialysis on his bedside in intensive care unit. Model Maker is present on the bedside. The patient is feeling well and denies any complaints. His blood pressure was high yesterday and medications have been adjusted with good control of blood pressure this morning. The patient reports that he felt dizzy when he stood up, but feels well when he is lying in the bed. He is eating well and denies any nausea, vomiting, dyspnea or chest pain. PHYSICAL EXAMINATION: The patient is awake and alert and able to answer questions with the help of engineering lecturer. 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 VITAL SIGNS: Temperature 97.5 degrees Fahrenheit, heart rate 60 per minute and respiratory rate 16 per minute. Blood pressure 140/66 mmHg and oxygen saturation 98% on room air. HEAD: His head is atraumatic. NECK: Supple and without jugular venous distention (JVD) or thyroid enlargement. HEART: Sounds regular. LUNGS: Clear to auscultation. ABDOMEN: Soft and nontender and bowel sounds are normal. EXTREMITIES: Without any cyanosis or clubbing. Right upper chest, he has hemodialysis Perma-Cath which is being used. NEUROLOGICALLY: He is at his baseline mentation and able to communicate with the help of an engineering lecturer. LABORATORY DATA: Today's labs show hemoglobin 11.7 and hematocrit 35.7. Sodium is 137, potassium 5.6, CO2 23, BUN 68 and creatinine 9.97. Glucose 140, calcium 8.7 and phosphorus 8.8. PROBLEMS. 1. End-stage renal disease. The patient is regularly dialyzed on Tuesday, Tuesday and Tuesday schedule. He is being dialyzed this morning. 2. Hyperkalemia. This is related to end-stage renal disease and will be corrected with dialysis today. His electrolytes should be checked again tomorrow morning. 3. Hyperphosphatemia. Again this is related to end-stage renal disease and dietary noncompliance. The patient is being dialyzed which will help with improvement in his phosphorus level and we will also adjust his phosphate binders. He is currently on Velphoro 1000 mg with each meal and I will consider to add another binder if needed. 4. Uncontrolled hypertension. His blood pressure control remains improved compared to yesterday. Today we are removing about 4 liters of fluid with dialysis which is likely to help with further improvement in his blood pressure. Medications can be adjusted as needed. edited: 08/07/2019 [id number] is
[2019-08-06] MEDS: ROSUVASTATIN 10 MG TAB (CRESTOR) PO SCH (20:20)
[2019-08-06] MEDS: METOPROLOL TART 25 MG TABLET PO SCH (20:21)
[2019-08-07] MEDS ORDERED: PROMETHAZINE INJ 25 MG/ML VIAL (J2550) As Ordered ONE (03:07)
[2019-08-07] MEDS: PROMETHAZINE INJ 25 MG/ML VIAL (J2550) IV PRN ×3 (03:13→14:17)
[2019-08-07 05:27] LABS: HEMATOCRIT 38.8 % (42.0-52.0); HEMOGLOBIN 12.5 g/dl (13.5-17.5); MEAN CORPUSCULAR HEMOGLOBIN 29.7 pg (27.0-33.0); MEAN CORPUSCULAR HGB CONC 32.2 g/dl (32.0-36.5); MEAN CORPUSCULAR VOLUME 92.2 fl (80.0-96.0); PLATELET COUNT, AUTOMATED 189 10^3/uL (150-450); RED BLOOD COUNT 4.21 10^6/uL (4.30-6.10); WHITE BLOOD COUNT 9.7 10^3/uL (4.0-10.0)
[2019-08-07 05:53] LABS: CALCIUM LEVEL 8.4 MG/DL (8.5-10.1); CREATININE FOR GFR 8.07 MG/DL (0.70-1.30); GLOMERULAR FILTRATION RATE 7.6 (>60); POTASSIUM SERUM 6.4 MEQ/L (3.5-5.1)
[2019-08-07] MEDS ORDERED: CALCIUM GLUCONATE 1,000 MG in D5W MINI-BAG PLUS 100 ML IV ONE (07:00)
[2019-08-07] MEDS ORDERED: PATIROMER SORBITEX CALCIUM 8.4 GM POWDER PACKET (VELTASSA) PO ONE (07:00)
--- NOTE | 2019-08-07 07:11 | IPNPDOC ---
Subjective Date Seen The patient was seen on 08/07/19. Subjective Chief Complaint/HPI Patient had hyperkalemia overnight, potassium of 6.8, calcium was given, insulin was held due to history of hypoglycemia. Patient denies any chest pain. . He does report lightheadedness when getting up and using the restroom, patient is able to void, had a bowel movement this a.m. Objective Physical Examination General Exam: Positive: Alert, Cooperative, No Acute Distress Eye Exam: Positive: PERRLA ENT Exam: Positive: Mucous membr. moist/pink Neck Exam: Positive: Supple Chest Exam: Positive: Clear to auscultation, Normal air movement Heart Exam: Positive: Rate Normal Telemetry: Positive: No significant arrhythmia Abdomen Exam: Positive: Normal bowel sounds, Soft Male Exam: Positive: Normal Genital Exam Extremity Exam: Positive: Normal pulses; Negative: Clubbing, Cyanosis, Edema Skin Exam: Positive: Nl turgor and temperature Neuro Exam: Positive: Strength at 5/5 X4 ext, Cranial Nerves 3-12 NL, Other (could not perform gait examination due to c/o dizziness ) Psych Exam: Positive: Mental status NL Other physical findings PHYSICAL EXAMINATION: VITAL SIGNS: Please see below. GENERAL: No distress, medical transcription editor present HEENT: Normocephalic, atraumatic, moist mucous membranes NECK: Supple CARDIOVASCULAR EXAMINATION: S1, S2, no murmurs, dialysis catheter c/d/i on right chest RESPIRATORY EXAMINATION: CTAB ABDOMINAL EXAMINATION: Soft, nontender, nondistended, positive bowel sounds EXTREMITIES: no edema SKIN: No rash PSYCHIATRIC EXAMINATION: Calm and cooperative, appropriate affect Assessment /Plan Assessment Patient is a 49-year-old male with past medical history of deafness, ESRD on HD presents with lightheadedness secondary to elevated blood pressure. Had HD on 08/06/2019, neurology consultation, potassium elevated greater than 6, and for HD today, 08/07/2019. MRI head revealing acute left francisco infarct measuring 8 x 8 mm, did not qualify for TPA, neurology consult. #HTN: HD 08/06 and 08/07, will continue home medication clonidine 0.3 mg daily, losartan 100 mg, Hydralazine 50 mg TID, will increase metoprolol tartrate 25mg BID, consider increase clonidine to 0.3 twice a day if blood pressure still greater than 180/110, although continue to monitor in ICU. Follow-up with neurology for BP management. #hyperkalemia: HD 08/07 #ESRD on HD, 08/07 #CVA, acute infarct of the left francisco measuring 8 x 8 mm on MRI without contrast of the head, MRA of the head and neck reveals no acute abnormalities, CT head reveals old right basal ganglia lacunar infarct. Neurology consulted, Continue aspirin 325 daily, Crestor 10 mg daily, echo 08/06 reveals venous bradycardia with first-degree heart block, the 2 diastolic dysfunction with mildly elevated dysfunction, occult exam due to body habitus. Recommendations for EMILY. Will order EMILY. #DM, insulin dependent: hold home insulin lantus 32U, cont ISS, diabetic diet #Obesity (BMI 33.9): supportive care #GERD: pantoprazole 40mg by mouth daily # HLD: cont rosuvastatin 40mg QHS DVT ppx- SCD, will avoid chemical ppx in view of accelerated HTN Full code Problems (1) Hyperkalemia (2) ESRD (end stage renal disease) on dialysis (3) CVA (cerebral vascular accident) (4) Diabetes (5) Obesity (BMI 30-39.9) (6) GERD (gastroesophageal reflux disease) (7) HLD (hyperlipidemia) (8) Hypertensive urgency Status: Acute (9) Dizziness Plan/VTE VTE Prophylaxis Ordered?: Yes VS, I&O, 24H, [facility] Vital Signs/I&O Vital Signs Date Time Temp Pulse Resp B/P (MAP) Pulse Ox O2 Delivery O2 Flow Rate FiO2 08/06/19 20:21 70 154/71 08/06/19 16:00 98.2 18 96 Room Air I&O- Last 24 Hours up to 6 AM 08/07/19 06:00 Intake Total 1550 ml Output Total 4000 ml Balance -2450 ml Laboratory Data 24H LABS Laboratory Tests 2 08/06/19 08:08: Anion Gap 13, Glomerular Filtration Rate 6.0L, Calcium Level 8.7, Phosphorus Level 8.8H, Albumin 3.2 08/06/19 08:13: Bedside Glucose (Misc Panel) 105 08/06/19 12:05: Bedside Glucose (Misc Panel) 123H 08/06/19 16:37: Bedside Glucose (Misc Panel) 218H 08/06/19 20:16: Bedside Glucose (Misc Panel) 175H 08/07/19 03:03: Bedside Glucose (Misc Panel) 158H 08/07/19 05:11: Nucleated Red Blood Cells % (auto) 0.0, Anion Gap 13, Glomerular Filtration Rate 7.6L, Calcium Level 8.4L CBC/BMP Laboratory Tests 08/06/19 07:51 08/06/19 08:08 08/07/19 05:11 NICOLE FOSS MD Aug 07, 2019 07:11
[2019-08-07 08:00] VITALS: BP 199/88
[2019-08-07] MEDS: SUCROFERRIC OXYHYDROXIDE 500MG CHEW TAB (VELPHORO) PO SCH ×4 (08:08→19:08)
[2019-08-07] MEDS: HumaLOG INSULIN (NovoLOG) PER UNIT SC SCH ×4 (08:09→21:21)
[2019-08-07] MEDS: CYANOCOBALAMIN 500 MCG TAB PO SCH (09:17)
[2019-08-07] MEDS: PANTOPRAZOLE 40MG TAB (PROTONIX) PO SCH (09:17)
[2019-08-07] MEDS: **hydrALAZINE** 50 MG TAB PO SCH ×3 (09:18→21:20)
[2019-08-07] MEDS: cloNIDine 0.1 MG TAB PO SCH (09:18)
[2019-08-07] MEDS: ASPIRIN 325 MG TAB PO SCH (09:18)
[2019-08-07] MEDS: SERTRALINE HCL 25 MG TABLET PO SCH (09:19)
[2019-08-07] MEDS: METOPROLOL TART 25 MG TABLET PO SCH ×2 (09:19→21:20)
[2019-08-07] MEDS: LOSARTAN 50 MG TAB PO SCH (09:19)
[2019-08-07] MEDS ORDERED: HEPARIN 1,000 UNITS/ML 10ML VIAL (FOR RADIOLOGY& DIALYSIS ONLY) IV ONE (11:00)
[2019-08-07] MEDS ORDERED: HEPARIN 1,000 UNITS/ML 10ML VIAL (FOR RADIOLOGY& DIALYSIS ONLY) XX ONE (11:00)
[2019-08-07 14:10] VITALS: BP 110/58
--- NOTE | 2019-08-07 14:58 | IPN ---
DATE: 08/07/2019 Mr. Morris is seen this morning on his bedside. He was dialyzed yesterday and his potassium level was 5.6. We dialyzed him initially with 3 mEq potassium bath, but in the later part of dialysis it was switched to 2.0 mEq. However, this morning his potassium level has come back at 6.4 without any hemolysis. I have also seen no significant change in his creatinine from 9.97 down to 8.07 yesterday while he had 4 hours of dialysis. I am concerned about poor function from his catheter causing inefficient dialysis. His blood pressure is somewhat high this morning. He did not receive his morning dose at this time. The patient denies any complaints at present and he has been eating well. Granite [employer] Terrazzo Finisher was present during my visit who helped in the communication. PHYSICAL EXAMINATION: Temperature 97.7 degrees Fahrenheit, heart rate 82 per minute and respiratory rate 20 per minute. Blood pressure 199/88 mmHg and oxygen saturation 97%. Head is atraumatic. Neck is supple and without JVD or thyroid enlargement. Heart sounds regular and lungs clear to auscultation. Abdomen soft and nontender. Bowel sounds are normal. On the right upper chest he has a PermaCath for dialysis without any signs of infection. Neurologically he is at his baseline mentation. Today's labs show sodium 135, potassium 6.4, CO2 23, BUN 50 and creatinine 8.07. Glucose 169 and calcium 8.4. WBC count is 9.7, hemoglobin 12.5 and hematocrit 38.8. PROBLEMS: 1. End-stage renal disease. The patient was dialyzed yesterday; however, his hyperkalemia has worsened due to which we are going to dialyze him again today for 4 hours. Will remove only about 2.5 liters of fluid today. 2. Hyperkalemia most likely related to poor dialysis from the catheter and dietary indiscretion. I am changing his diet to 2 grams potassium restriction and we will dialyze him today with 1.0 mEq potassium bath. I have stopped the VELTASSA and dialysis is likely to correct his hyperkalemia. I will repeat his chemistry this afternoon. 3. Hyperphosphatemia. His phosphorus level was 8.8 yesterday. We will see how it improves with dialysis. He will continue with phosphate binders. 4. Hypertension. Blood pressure is high this morning as he did not receive his medications. I have advised the nursing staff to go ahead and give his morning dose of medications. Yesterday his blood pressure was well-controlled. No changes in antihypertensive meds are being made as yet. 5. Acute stroke. The patient still feels dizzy when he stands up. He did have stroke in his francisco. At present he will require some rehab.
[2019-08-07 16:00] VITALS: BP 168/85
[2019-08-07 18:00] VITALS: BP 154/98
[2019-08-07] MEDS: ROSUVASTATIN 10 MG TAB (CRESTOR) PO SCH (21:19)
[2019-08-07] MEDS: ACETAMINOPHEN TAB 650MG DOSE (2X325MG) PO PRN (21:19)
--- NOTE | 2019-08-07 21:44 | ECGEPIP ---
[facility] Test Date: 2019-08-07 Pat Name: ZEENAT ORTIZ Department: Room: [place] [address] Gender: Male Seismic Engineer: JUAN CARLOS : 1970 Requested By: ZORAIDA ASTORGA Order Number: [id number] Reading MD: Vimal Pineda Measurements Intervals [place] Rate: 78 P: 67 MD: 215 QRS: -63 QRSD: 109 T: 51 QT: 398 QTc: 456 Interpretive Statements SINUS RHYTHM WITH FIRST DEGREE AV BLOCK MARKED LEFT AXIS DEVIATION POSSIBLE PRIOR INFERIOR WALL INFARCT POSSIBLE PRIOR ANTEROSEPTAL WALL INFARCT PRIOR TRACING ON 08/04/2019 AT 2:24 P.M., HEART RATE WAS SLOWER AT 60 BEATS PER MINUTE OTHERWISE NO SIGNIFICANT CHANGES Electronically Signed on 08-07-2019 21:44:05 EST by Vimal Pineda
[2019-08-07 22:00] VITALS: BP 157/93
[2019-08-08] VITALS (8 sets, daily range): BP systolic 137–182; BP diastolic 66–94
[2019-08-08 00:39] LABS: BASO # 0.1 10^3/uL (0.0-0.2); BASO % 0.5 % (0.0-1.0); EOS % 0.1 % (0.0-3.0); HEMATOCRIT 37.5 % (42.0-52.0); HEMOGLOBIN 12.3 g/dl (13.5-17.5); LYMPH % 19.6 % (24.0-44.0); MEAN CORPUSCULAR HEMOGLOBIN 30.2 pg (27.0-33.0); MEAN CORPUSCULAR HGB CONC 32.8 g/dl (32.0-36.5); MEAN CORPUSCULAR VOLUME 92.1 fl (80.0-96.0); MONO # 0.8 10^3/uL (0.0-0.8); MONO % 7.3 % (0.0-5.0); NEUTROPHILS # 7.4 10^3/uL (1.5-8.5); NEUTROPHILS % 72.1 % (36.0-66.0); PLATELET COUNT, AUTOMATED 160 10^3/uL (150-450); RED BLOOD COUNT 4.07 10^6/uL (4.30-6.10); WHITE BLOOD COUNT 10.2 10^3/uL (4.0-10.0)
[2019-08-08 01:02] LABS: ERYTHROCYTE SEDIMENTATION RATE 69 mm/hr (0-15)
[2019-08-08 01:05] LABS: ALBUMIN 3.1 GM/DL (3.2-5.2); BILIRUBIN,TOTAL 0.5 MG/DL (0.2-1.0); C REACTIVE PROTEIN QUANTITATIV 6.73 MG/DL (0.00-0.30); CALCIUM LEVEL 7.9 MG/DL (8.5-10.1); CREATININE FOR GFR 7.26 MG/DL (0.70-1.30); GLOMERULAR FILTRATION RATE 8.6 (>60); POTASSIUM SERUM 4.8 MEQ/L (3.5-5.1); TOTAL PROTEIN 7.3 GM/DL (6.4-8.2)
--- NOTE | 2019-08-08 01:23 | REPVR ---
PROCEDURE INFORMATION: Exam: XR Chest, 2 Views Exam date and time: 08/08/2019 12:56 AM Age: 49 years old Clinical history: New fevers TECHNIQUE: Imaging protocol: XR of the chest Views: 2 views. COMPARISON: CR PORTABLE CHEST X-RAY 08/04/2019 2:49 PM (The report from this study was not available for review at the time of this interpretation.) CT ANGIO CHEST 05/28/2019 5:46:43 PM FINDINGS: Lungs: Unremarkable. No consolidation. No pulmonary edema. Pleural space: Unremarkable. No pleural effusion or pneumothorax is identified. Heart/Mediastinum: Unremarkable. No cardiomegaly. Bones/joints: In the lateral view, there is a soft tissue protuberance posterior to the thoracic spine. There are endplate spurs in the thoracic spine. Other findings: There is a right internal jugular central venous line terminating in the superior vena cava. IMPRESSION: 1. No radiographic evidence for an acute cardiopulmonary process. 2. Soft tissue protuberance posterior to the thoracic spine of uncertain etiology. Electronically signed by: Khalif Castillo On 08/08/2019 01:22:48 AM
--- NOTE | 2019-08-08 05:13 | IPNPDOC ---
Text Note Date of Service The patient was seen on 08/08/19. NOTE NIGHT FLOAT NOTE Patient noted to have fever overnight, oral TMax 101.2. Chart reviewed, no prior fevers during this stay. Assessed at bedside with assistance of staff and patient's asl interpreter: he denies any coughing, wheezing, shortness of breath, abdominal pain, chest pain, headache, neck or spinal pain. He overall feels well. Denies any abnormal discharges, rashes, swelling. He adamantly refused rectal temperature as well as straight cath for UA sample, but agreeable to give clean catch sample in am, as he makes scant amount of urine daily in light of his ESRD. Chest x-ray negative for infiltrates. WBC borderline, ESR elevated, however it appears this is chronic for him. CRP elevated at 6.73. Labs otherwise normal. His fever resolved spontaneously without intervention. Blood cultures pending. CT of abdomen and pelvis ordered, to be obtained prior to his dialysis session. Physical exam: Vitals: Temp 101.2, pulse 81, respirations 18, BP 157/93 map 114, 95% room air General: Comfortably in bed, NAD, A&ox3 HEENT: Normocephalic, atraumatic, poor dentition, neck supple. Negative Brudzinski sign Cardiac: Regular rate and rhythm, no appreciable murmurs Lungs: Mild rhonchi in the right lower base, otherwise clear throughout, equal chest rise and breath sounds bilaterally Abdomen: Soft, nontender, nondistended, normoactive bowel sounds, no masses, rebound, guarding, or rigidity Extremities: 2+ radial pulses, no edema or calf tenderness, amputated fingers Skin: Covered wound on the left lower extremity, yellow dry scabbed area on the left hand palmar side without any drainage-patient reports this has been present for months MSK: Strength equal bilaterally in upper and lower extremities Questionable true fever, given patient denied all symptoms and stating he feels his normal self, and workup negative thus far, and fever spontaneously resolved. No specific infectious source suggested. Unlikely endocarditis or meningitis given echo and physical. Will hold off antibiotics currently and await blood cultures and CT abdomen and pelvis. VS,Fishbone, I+O VS, Fishbone, I+O Laboratory Tests 08/07/19 05:11 08/08/19 00:17 Vital Signs Date Time Temp Pulse Resp B/P (MAP) Pulse Ox O2 Delivery O2 Flow Rate FiO2 08/08/19 03:20 99.8 08/07/19 22:00 81 18 157/93 (114) 95 Room Air I&O- Last 24 Hours up to 6 AM 08/08/19 06:00 Intake Total 1370 ml Output Total 2500 ml Balance -1130 ml GME ATTESTATION GME ATTESTATION My faculty preceptor for this patient encounter was physically present during e encounter and was fully available. All aspects of the patient interview, examination, medical decision making process, and medical care plan development were reviewed and approved by the faculty preceptor. The faculty preceptor is aware and concurs with the plan as stated in the body of this note and will attest to such by his/her cosignature. SENG MASON DO Aug 08, 2019 05:13
[2019-08-08 05:59] LABS: HEMATOCRIT 37.7 % (42.0-52.0); HEMOGLOBIN 12.1 g/dl (13.5-17.5); MEAN CORPUSCULAR HEMOGLOBIN 29.7 pg (27.0-33.0); MEAN CORPUSCULAR HGB CONC 32.1 g/dl (32.0-36.5); MEAN CORPUSCULAR VOLUME 92.4 fl (80.0-96.0); PLATELET COUNT, AUTOMATED 157 10^3/uL (150-450); RED BLOOD COUNT 4.08 10^6/uL (4.30-6.10); WHITE BLOOD COUNT 9.2 10^3/uL (4.0-10.0)
[2019-08-08 06:14] LABS: CALCIUM LEVEL 8.7 MG/DL (8.5-10.1); CREATININE FOR GFR 7.7 MG/DL (0.70-1.30); GLOMERULAR FILTRATION RATE 8.1 (>60); POTASSIUM SERUM 4.9 MEQ/L (3.5-5.1)
[2019-08-08] MEDS: ASPIRIN 325 MG TAB PO SCH (06:23)
[2019-08-08] MEDS: GASTROGRAFIN SOLUTION 30ML PO SCH ×3 (06:23→08:02)
[2019-08-08] MEDS: SERTRALINE HCL 25 MG TABLET PO SCH (06:24)
[2019-08-08] MEDS: PANTOPRAZOLE 40MG TAB (PROTONIX) PO SCH (06:24)
[2019-08-08] MEDS: CYANOCOBALAMIN 500 MCG TAB PO SCH (06:24)
[2019-08-08] MEDS: **hydrALAZINE** 50 MG TAB PO SCH ×3 (06:25→20:46)
[2019-08-08] MEDS: LOSARTAN 50 MG TAB PO SCH (06:25)
[2019-08-08] MEDS: cloNIDine 0.1 MG TAB PO SCH (06:25)
[2019-08-08] MEDS: METOPROLOL TART 25 MG TABLET PO SCH ×2 (06:26→20:46)
[2019-08-08] MEDS: ACETAMINOPHEN TAB 650MG DOSE (2X325MG) PO PRN ×2 (06:27→19:53)
[2019-08-08] MEDS: HumaLOG INSULIN (NovoLOG) PER UNIT SC SCH ×4 (07:30→21:00)
[2019-08-08] MEDS: SUCROFERRIC OXYHYDROXIDE 500MG CHEW TAB (VELPHORO) PO SCH ×3 (07:30→17:30)
[2019-08-08] MEDS ORDERED: ISOVUE-370 76% 100ML VIAL (Q9967) As Ordered ONE (09:16)
[2019-08-08] MEDS ORDERED: FLUID PLACE HOLDER IV ONE (09:30)
[2019-08-08] MEDS ORDERED: VANCOMYCIN HCL IV ONE (09:30)
--- NOTE | 2019-08-08 10:58 | PHACANCOPD ---
PHARMACY VANCOMYCIN DOSING Pt Demographics Demographics Patient Age:49 , Weight:119.600 , Gender: male Adjusted Body Weight Events Past 24 Hours Events Past 24 Hours: YES: Dialysis Vancomycin Vancomycin indication: SKIN SOFT TISSUE/ POSSIBLE BACTEREMIA Vancomycin Target Ranges: 15-20 mcg/ml Vancomycin Load Y/N: Yes Load Dose Date Time Vancomycin Load Dose: 1500MG IV VANCOMYCIN Date: 08/08/2019 Time: 1900 Vancomycin Dose Date: 08/08/19. Current Vancomycin Dose: 750MG IV VANCOMYCIN HD Intermittent Dosing?: No Labs Labs Laboratory Tests 08/08/19 00:17 08/08/19 05:26 Vital Signs Date Time Temp Pulse Resp B/P (MAP) Pulse Ox O2 Delivery O2 Flow Rate FiO2 08/08/19 06:26 79 08/08/19 06:25 177/94 08/08/19 06:00 100.4 79 18 177/94 (121) 93 Room Air 08/08/19 03:20 99.8 08/07/19 23:20 98.5 08/07/19 22:00 101.2 81 18 157/93 (114) 95 Room Air 08/07/19 21:20 157/93 08/07/19 21:20 81 08/07/19 18:00 99.2 78 18 154/98 (116) 96 Room Air 08/07/19 16:40 168/85 08/07/19 16:00 100.5 77 15 168/85 (112) 95 Room Air 08/07/19 14:10 80 110/58 (75) Intake & Output 08/08/19 06:00 Intake Total 1970 ml Output Total 2500 ml Balance -530 ml Laboratory Tests 08/07/19 14:23: Bedside Glucose (Misc Panel) 163H 08/07/19 17:49: Bedside Glucose (Misc Panel) 159H 08/07/19 21:01: Bedside Glucose (Misc Panel) 251H 08/08/19 00:17: White Blood Count 10.2H, Red Blood Count 4.07L, Hemoglobin 12.3L, Hematocrit 37.5L, Mean Corpuscular Volume 92.1, Mean Corpuscular Hemoglobin 30.2, Mean Corpuscular Hemoglobin Concent 32.8, Red Cell Distribution Width 13.8, Platelet Count 160, Immature Granulocyte % (Auto) 0.4, Neutrophils (%) (Auto) 72.1H, Lymphocytes (%) (Auto) 19.6L, Monocytes (%) (Auto) 7.3H, Eosinophils (%) (Auto) 0.1, Basophils (%) (Auto) 0.5, Neutrophils # (Auto) 7.4, Lymphocytes # (Auto) 2.0, Monocytes # (Auto) 0.8, Eosinophils # (Auto) 0.0, Basophils # (Auto) 0.1, Nucleated Red Blood Cells % (auto) 0.0, Erythrocyte Sedimentation Rate 69H, Sodium Level 135L, Potassium Level 4.8#, Chloride Level 96L, Carbon Dioxide Level 28, Anion Gap 11, Blood Urea Nitrogen 46H, Creatinine 7.26H, Glomerular Filtration Rate 8.6L, Fasting Glucose 167H, Lactic Acid Level 1.5, Calcium Level 7.9L, Total Bilirubin 0.5, Aspartate Amino Transf (AST/SGOT) 38H, Alanine Aminotransferase (ALT/SGPT) 47, Alkaline Phosphatase 80, C-Reactive Protein, Quantitative 6.73H, Total Protein 7.3, Albumin 3.1L, Albumin/Globulin Ratio 0.74L 08/08/19 05:26: White Blood Count 9.2, Red Blood Count 4.08L, Hemoglobin 12.1L, Hematocrit 37.7L, Mean Corpuscular Volume 92.4, Mean Corpuscular Hemoglobin 29.7, Mean Corpuscular Hemoglobin Concent 32.1, Red Cell Distribution Width 13.8, Platelet Count 157, Nucleated Red Blood Cells % (auto) 0.0, Sodium Level 133L, Potassium Level 4.9, Chloride Level 95L, Carbon Dioxide Level 27, Anion Gap 11, Blood Urea Nitrogen 47H, Creatinine 7.70H, Glomerular Filtration Rate 8.1L, Fasting Glucose 172H, Calcium Level 8.7 08/08/19 07:12: Bedside Glucose (Misc Panel) 190H Current Medications Medications (Trade) Dose Ordered Sig/Jacquelyn Route PRN Reason Start Time Stop Time Status Last Admin Dose Admin Acetaminophen (Tylenol Tab) 650 mg Q4H PRN PO PAIN OR FEVER 08/04/19 17:15 08/08/19 06:27 650 MG Aspirin (Aspirin) 325 mg DAILY PO 08/05/19 09:00 08/08/19 06:23 325 MG Clonidine HCl (Catapres) 0.3 mg DAILY PO 08/07/19 09:00 08/08/19 06:25 0.3 MG Cyanocobalamin (Vitamin B12) 500 mcg DAILY PO 08/05/19 09:00 08/08/19 06:24 500 MCG Hydralazine HCl (Apresoline) 50 mg TID PO 08/06/19 16:00 08/08/19 06:25 50 MG Insulin Human Lispro (HumaLOG INSULIN) SEE PROTOCOL TABLE QHS SC 08/04/19 21:00 08/07/19 21:21 2 UNITS Losartan Potassium (Cozaar) 100 mg DAILY PO 08/05/19 09:00 08/08/19 06:25 100 MG Metoprolol Tartrate (Lopressor) 25 mg BID PO 08/06/19 21:00 08/08/19 06:26 25 MG Pantoprazole Sodium (Protonix) 40 mg DAILY PO 08/05/19 09:00 08/08/19 06:24 40 MG Promethazine HCl (PHENERGAN INJection) 12.5 mg Q6HP PRN IV NAUSEA 08/07/19 03:00 08/07/19 14:17 12.5 MG Rosuvastatin Calcium (Crestor) 40 mg QHS PO 08/05/19 21:00 08/07/19 21:19 40 MG Sertraline HCl (Zoloft) 25 mg DAILY PO 08/05/19 09:00 08/08/19 06:24 25 MG Sucroferric Oxyhydroxide (Velphoro) 1,000 mg AC PO 08/04/19 17:30 08/07/19 19:08 1,000 MG Micro Microbiology 08/08/19 Blood Culture, Received Pending 08/08/19 Blood Culture, Received Pending Creatinine Clearance Date:08/08/19. Creatinine Clearance:CALCULATED TO BE 16 Pending Labs BC PENDING Assessment and Plan Maintaining Current Dose?: Yes Reason for dose change: No Dose Change Pharmacist Note Pharmacist Note Date: 08/08/19. Pharmacist note: Patient being treated for skin/soft tissue infection and possible bacteremia. Patient receiving HD on Tuesday, Tue, Tuesday. Verified with nurse that patient is receiving dialysis today. BC pending. Patient placed on meropenem 500mg q24h x 2 doses to be given after HD on dialysis days. Patient also placed on vancomycin IV. I scheduled a loading dose of 1500mg IV vancomycin to be given @ 1800 after dialysis today. I then scheduled 750mg IV vancomycin to be given after dialysis on dialysis days. This is based on patient's last admission and trough results. I scheduled a random vancomycin level to be drawn on Tuesday08/10/19 the morning before dialysis to determine if current dosing is appropriate. I will continue to monitor this patient and adjust dose as needed. OG DUVALL PHARMACY Aug 08, 2019 10:58
[2019-08-08] MEDS ORDERED: HEPARIN 1,000 UNITS/ML 10ML VIAL (FOR RADIOLOGY& DIALYSIS ONLY) XX ONE (11:30)
[2019-08-08] MEDS ORDERED: HEPARIN 1,000 UNITS/ML 10ML VIAL (FOR RADIOLOGY& DIALYSIS ONLY) IV ONE (11:30)
--- NOTE | 2019-08-08 13:55 | REP ---
CT ABDOMEN AND PELVIS WITH IV AND ORAL CONTRAST: HISTORY: Fever. Question intra-abdominal infection. CT CONTRAST DOSE: 100 mL of intravenous Isovue 370. CT FINDINGS: Digital preliminary tree scout radiograph demonstrates an unremarkable bowel gas pattern. The lung bases are clear. The liver and the spleen are normal in size homogeneous in texture. There is an accessory splenule. The patient is status post gastric bypass surgery. Opaque material is seen layering in the dependent portion of the gallbladder consistent with fine gravel-like calculi. No pancreatic abnormality is observed. No adrenal lesion is seen on either side. The kidneys enhance symmetrically. They are morphologically intact. There is an accessory renal artery on the right. There is a retroaortic renal vein on the left. Vascular calcification is noted. Small and large intestinal bowel loops are unremarkable in the upper abdomen. Pelvic CT images demonstrate mild thickening of the bladder wall anteriorly. Prostate and seminal vesicles are unremarkable. Small and large bowel loops are normal in the pelvis. No abdominal wall defect is seen. Normal appendix is seen in the right lower quadrant. IMPRESSION: Cholelithiasis. Status post gastric bypass. Fairly extensive vascular calcification for this young individual. No acute abdominal inflammatory abnormality. Mild thickening of the urinary bladder wall anteriorly question cystitis. Electronically Signed by Tam Leon MD 08/08/2019 03:25 P
[2019-08-08] MEDS ORDERED: MIDAZOLAM INJ 2 MG/2 ML VIAL (J2250) As Ordered ONE (16:15)
[2019-08-08] MEDS ORDERED: LIDOCAINE 2% INJ 100 MG/5 ML SDV (FOR ANES.) As Ordered ONE (16:15)
[2019-08-08] MEDS ORDERED: fentaNYL 100 MCG/2 ML INJECTION (J3010) As Ordered ONE (16:15)
[2019-08-08] MEDS ORDERED: PROPOFOL 200 MG/20 ML VIAL As Ordered ONE (16:15)
[2019-08-08] MEDS ORDERED: LIDOCAINE VISCOUS 2% SOLN 15ML UDC As Ordered ONE (16:47)
[2019-08-08] MEDS ORDERED: CETACAINE SPRAY 5GM As Ordered ONE (16:47)
[2019-08-08] MEDS ORDERED: MEROPENEM INJ 500 MG in IV 1 EA IV SCH (18:00)
[2019-08-08] MEDS ORDERED: VANCOMYCIN HCL 1,000 MG, VIAL MATE ADAPTER 1 EACH in D5W 250 ML IV ONE (19:00)
--- NOTE | 2019-08-08 19:28 | IPN ---
DATE: 08/08/2019 Mr. Morris is seen this morning on his bedside. I saw him earlier in his room on the bedside and now he is in dialysis. He had fever of 101.2 degrees Fahrenheit last night. He underwent a CT scan of abdomen and pelvis just before dialysis today and also had blood cultures drawn. So far, blood cultures are negative. His fever has improved and he is feeling well. He denies any nausea, vomiting, dyspnea or chest pain. His blood pressure has been reasonably well-controlled. PHYSICAL EXAMINATION: Now his temperature is 100.4 degrees Fahrenheit, heart rate 80 per minute and respiratory rate 18 per minute. Blood pressure 170/90 mmHg and oxygen saturation 93% on room air. His head is atraumatic. Neck is supple and without jugular venous distention (JVD) or thyroid enlargement. Right upper chest Perma-Cath is present without any drainage or signs of infection. Heart sounds are regular. Lungs are clear to auscultation. Abdomen is soft and nontender and without a palpable organomegaly. Bowel sounds are normal. Extremities without any cyanosis or clubbing. On the left hand, middle finger has a small ulcer on the tip without any drainage or surrounding erythema. Wound on the left arm is also healing without any drainage or erythema. He has a small ulcer on his left leg which is covered with dressing. Neurologically, he is at his baseline mentation. PROBLEMS: 1. End-stage renal disease. The patient was dialyzed yesterday due to hyperkalemia and he is being dialyzed again today as today is his regular day. We will remove about 2.5 liters of fluid today. 2. Hypertension. Blood pressure is improving and we will continue with current antihypertensive medications. We will monitor his blood pressure after dialysis. 3. Fever. He does have a history of bacteremia recently and has been treated with antibiotics for six weeks. He received vancomycin with dialysis for six weeks and this fever is now quite concerning due to possibility of catheter-related infection or endocarditis. I agree with the plan for transesophageal echocardiogram due to high risk of bacterial endocarditis. 4. Anemia. His anemia is stable at present and does not need any intervention.
[2019-08-08] MEDS ORDERED: VANCOMYCIN HCL 500 MG in D5W MINI-BAG PLUS 100 ML IV ONE (20:00)
--- NOTE | 2019-08-08 20:42 | IPNPDOC ---
Subjective Date Seen The patient was seen on 08/08/19. Subjective Chief Complaint/HPI Patient had fevers/, chills overnight, denies any pain. Reports soft stools, but denies loose stools. CBC does not reveal leukocytosis, ESR was elevated at 69, ER/NH elevated at 6.73, follow-up venous blood cultures times 10/30/2018 and port culture. Pending U/A. CT abdomen and pelvis reports possible cystitis, sludge in the gallbladder, and multiple calcifications. Patient also had EMILY today which does reveal a small PFO. Also reports wound on left hand, which has improved from previous, he also reports petechiae on fingers secondary to glucose checks. Retail Key Holder present. Objective Physical Examination General Exam: Positive: Alert, Cooperative, No Acute Distress Eye Exam: Positive: PERRLA ENT Exam: Positive: Mucous membr. moist/pink Neck Exam: Positive: Supple Chest Exam: Positive: Clear to auscultation, Normal air movement Heart Exam: Positive: Rate Normal Telemetry: Positive: No significant arrhythmia Abdomen Exam: Positive: Normal bowel sounds, Soft Male Exam: Positive: Normal Genital Exam Extremity Exam: Positive: Normal pulses; Negative: Clubbing, Cyanosis, Edema Skin Exam: Positive: Nl turgor and temperature Neuro Exam: Positive: Strength at 5/5 X4 ext, Cranial Nerves 3-12 NL, Other (could not perform gait examination due to c/o dizziness ) Psych Exam: Positive: Mental status NL Other physical findings PHYSICAL EXAMINATION: VITAL SIGNS: Please see below. GENERAL: No distress, fiber optics engineer present HEENT: Normocephalic, atraumatic, moist mucous membranes NECK: Supple CARDIOVASCULAR EXAMINATION: S1, S2, no murmurs, dialysis catheter c/d/i on right chest RESPIRATORY EXAMINATION: CTAB ABDOMINAL EXAMINATION: Soft, nontender, nondistended, positive bowel sounds EXTREMITIES: no edema, petechiae on fingertips, no lunch or hemorrhages on finger or toenails SKIN: No rash PSYCHIATRIC EXAMINATION: Calm and cooperative, appropriate affect Assessment /Plan Assessment Patient is a 49-year-old male with past medical history of deafness, ESRD on HD presents with lightheadedness secondary to elevated blood pressure. Had HD on 08/06/2019, neurology consultation, potassium elevated greater than 6, and for HD today, 08/07/2019. MRI head revealing acute left francisco infarct measuring 8 x 8 mm, did not qualify for TPA, neurology consult. #Suspicious for bacteremia secondary to dialysis port site: ID consultation, follow-up on 08/08 blood cultures, empirically treat patient with vancomycin 1 dose, and meropenem 2 doses #HTN: HD 08/06 and 08/07, will continue home medication clonidine 0.3 mg daily, losartan 100 mg, Hydralazine 50 mg TID, will increase metoprolol tartrate 25mg BID, consider increase clonidine to 0.3 twice a day if blood pressure still greater than 180/110, although continue to monitor in ICU. Follow-up with neurology for BP management. #hyperkalemia: resolved #ESRD on HD: HD 08/06, 08/07, 08/08 #CVA, acute infarct of the left francisco measuring 8 x 8 mm on MRI without contrast of the head, MRA of the head and neck reveals no acute abnormalities, CT head reveals old right basal ganglia lacunar infarct. Neurology consulted, Continue aspirin 325 daily, Crestor 10 mg daily, echo 08/06 reveals venous bradycardia with first-degree heart block, the 2 diastolic dysfunction with mildly elevated dysfunction, occult exam due to body habitus. EMILY, positive for PFO, will discuss with patient management, outpatient follow-up. #DM, insulin dependent: hold home insulin lantus 32U, cont ISS, diabetic diet #Obesity (BMI 33.9): supportive care #GERD: pantoprazole 40mg by mouth daily # HLD: cont rosuvastatin 40mg QHS DVT ppx- SCD, will avoid chemical ppx in view of accelerated HTN Full code Problems (1) Hyperkalemia (2) ESRD (end stage renal disease) on dialysis (3) CVA (cerebral vascular accident) (4) Diabetes (5) Obesity (BMI 30-39.9) (6) GERD (gastroesophageal reflux disease) (7) HLD (hyperlipidemia) (8) Hypertensive urgency Status: Acute (9) Dizziness Plan/VTE VTE Prophylaxis Ordered?: Yes VS, I&O, 24H, Fishbone Vital Signs/I&O Vital Signs Date Time Temp Pulse Resp B/P (MAP) Pulse Ox O2 Delivery O2 Flow Rate FiO2 08/08/19 19:00 99.6 85 17 165/92 (116) 92 Room Air 08/08/19 18:10 10 I&O- Last 24 Hours up to 6 AM 08/08/19 06:00 Intake Total 1970 ml Output Total 2500 ml Balance -530 ml Laboratory Data 24H LABS Laboratory Tests 2 08/07/19 21:01: Bedside Glucose (Misc Panel) 251H 08/08/19 00:17: Immature Granulocyte % (Auto) 0.4, Neutrophils (%) (Auto) 72.1H, Lymphocytes (%) (Auto) 19.6L, Monocytes (%) (Auto) 7.3H, Eosinophils (%) (Auto) 0.1, Basophils (%) (Auto) 0.5, Neutrophils # (Auto) 7.4, Lymphocytes # (Auto) 2.0, Monocytes # (Auto) 0.8, Eosinophils # (Auto) 0.0, Basophils # (Auto) 0.1, Nucleated Red Blood Cells % (auto) 0.0, Erythrocyte Sedimentation Rate 69H, Anion Gap 11, Glomerular Filtration Rate 8.6L, Lactic Acid Level 1.5, Calcium Level 7.9L, Total Bilirubin 0.5, Aspartate Amino Transf (AST/SGOT) 38H, Alanine Aminotransferase (ALT/SGPT) 47, Alkaline Phosphatase 80, C-Reactive Protein, Quantitative 6.73H, Total Protein 7.3, Albumin 3.1L, Albumin/Globulin Ratio 0.74L 08/08/19 05:26: Nucleated Red Blood Cells % (auto) 0.0, Anion Gap 11, Glomerular Filtration Rate 8.1L, Calcium Level 8.7 08/08/19 07:12: Bedside Glucose (Misc Panel) 190H 08/08/19 15:06: Bedside Glucose (Misc Panel) 150H 08/08/19 18:58: Bedside Glucose (Misc Panel) 169H CBC/BMP Laboratory Tests 08/08/19 00:17 08/08/19 05:26 Microbiology Microbiology 08/08/19 Blood Culture, Received Pending 08/08/19 Blood Culture, Received Pending 08/08/19 Blood Culture, Received Pending NICOLE FOSS MD Aug 08, 2019 20:42
[2019-08-08] MEDS: ROSUVASTATIN 10 MG TAB (CRESTOR) PO SCH (20:46)
[2019-08-08] MEDS ORDERED: MEROPENEM INJ 1 GM in IV 1 EA IV SCH (21:00)
--- NOTE | 2019-08-08 22:57 | T-ECHO ---
DATE OF PROCEDURE: 08/08/2019 REFERRING PHYSICIAN: Sammie Ho MD INDICATION: Acute cerebral stroke, unspecified. PREPROCEDURE DIAGNOSIS: Acute cerebral stroke, unspecified. POSTPROCEDURE DIAGNOSIS: Acute cerebral stroke, unspecified, patent foramen ovale. PROCEDURE PERFORMED: Transesophageal echocardiogram with bubble study. SURGEON: Miquel Masters MD HOME HOSPICE RN: None. PRINCIPAL FINDINGS: Patent foramen ovale. COMPLICATIONS: None. PROCEDURE DESCRIPTION: Patient received viscous lidocaine to gargle and swallow. Rhythm was sinus. Esophageal intubation was accomplished by Dr. Masters without difficulty using a Rodger's 3D transesophageal echocardiogram probe. The patient tolerated the procedure well without any immediate complications. Patient received IV propofol for IV sedation as administered by the EXTERIOR INTERIOR SPECIALIST. The left and right ventricles appeared normal in size and systolic function. Atria appeared normal with regards to size. No masses or thrombi were seen within the atria or the left atrial appendage. Pulmonary venous inflow connections to the left atrium were anatomically normal. Pulmonary vein flow in the left upper pulmonary vein was normal. Aortic valve was three-cuspid and was structurally and functionally normal. Mitral leaflets were structurally and functionally normal. Trace mitral regurgitation was present within physiological limits. Tricuspid and pulmonic valves were normal without regurgitation. No vegetations of any of the cardiac valves. The atrial septum was anatomically suspicious for presence of a patent foramen ovale. Bubble study times two was performed using a mixture of normal saline with a small amount of propofol and 1 mL of air which was agitated back and forth between two 10 mL syringes by a three-way stopcock. Two of these injections were performed. The patient was sedated to the point where he would not be able to follow any verbal or visual commands for Valsalva maneuver release. With the last bubble study injection, a few bubbles were identified to cross the patent foramen ovale from right atrium to left atrium proving presence of a patent foramen ovale. Distal aortic arch and descending thoracic aorta appeared normal. CONCLUSIONS: 1. Small patent foramen ovale with shunting of bubbles from right atrium to left atrium vias the patent foramen ovale (PFO) occurring at rest. 2. Otherwise normal appearing echocardiogram Doppler. RECOMMENDATIONS: Recommend device closure of the PFO.
[2019-08-09 02:00] VITALS: BP 139/71
[2019-08-09 05:57] LABS: HEMATOCRIT 37.2 % (42.0-52.0); HEMOGLOBIN 12.4 g/dl (13.5-17.5); MEAN CORPUSCULAR HEMOGLOBIN 30.2 pg (27.0-33.0); MEAN CORPUSCULAR HGB CONC 33.3 g/dl (32.0-36.5); MEAN CORPUSCULAR VOLUME 90.5 fl (80.0-96.0); PLATELET COUNT, AUTOMATED 153 10^3/uL (150-450); RED BLOOD COUNT 4.11 10^6/uL (4.30-6.10); WHITE BLOOD COUNT 9.4 10^3/uL (4.0-10.0)
[2019-08-09 06:00] VITALS: BP 162/90
[2019-08-09 06:25] LABS: CALCIUM LEVEL 8.4 MG/DL (8.5-10.1); CREATININE FOR GFR 7.09 MG/DL (0.70-1.30); GLOMERULAR FILTRATION RATE 8.9 (>60); POTASSIUM SERUM 4.3 MEQ/L (3.5-5.1)
[2019-08-09] MEDS: SUCROFERRIC OXYHYDROXIDE 500MG CHEW TAB (VELPHORO) PO SCH ×3 (08:39→17:17)
[2019-08-09] MEDS: **hydrALAZINE** 50 MG TAB PO SCH ×3 (08:41→20:50)
[2019-08-09] MEDS: HumaLOG INSULIN (NovoLOG) PER UNIT SC SCH ×4 (08:41→20:42)
[2019-08-09] MEDS: cloNIDine 0.1 MG TAB PO SCH (08:41)
[2019-08-09] MEDS: ASPIRIN 325 MG TAB PO SCH (08:41)
[2019-08-09] MEDS: METOPROLOL TART 25 MG TABLET PO SCH ×2 (08:42→20:51)
[2019-08-09] MEDS: CYANOCOBALAMIN 500 MCG TAB PO SCH (08:42)
[2019-08-09] MEDS: SERTRALINE HCL 25 MG TABLET PO SCH (08:42)
[2019-08-09] MEDS: PANTOPRAZOLE 40MG TAB (PROTONIX) PO SCH (08:42)
[2019-08-09] MEDS: LOSARTAN 50 MG TAB PO SCH (08:42)
[2019-08-09 10:00] VITALS: BP 142/70
[2019-08-09 14:00] VITALS: BP 114/60
[2019-08-09] MEDS: **VANCO AFTER HD** MISC XX SCH (16:00)
--- NOTE | 2019-08-09 17:06 | IPN ---
DATE: 08/09/2019 Mr. Morris is seen this morning on his bedside. His sister is visiting, and his quarter supervisor is also in the room. The patient just finished his physical therapy, and I watched him and observed him. He had great difficulty and ambulating even with the help of walker and physical therapist. His balance is poor. The patient denies any fever, chills, nausea, vomiting, dyspnea, or chest pain. He does feel dizzy when he stands up. PHYSICAL EXAMINATION: Temperature 98 degrees Fahrenheit, heart rate 90 per minute, respiratory rate 20 per minute, blood pressure 165/77 mm of mercury, and oxygen saturation 95% on room air. Head is atraumatic. Neck is supple and without jugular venous distention (JVD) or thyroid enlargement. Heart sounds are regular, and lungs sound clear to auscultation. Abdomen soft and nontender, and bowel sounds are normal. Extremities without any cyanosis or clubbing. Neurologically, he is awake and without a significant focal deficit. He was able to walk with the help of therapist and walker. Today's labs show WBC count 9.4, hemoglobin 12.4, and hematocrit 37.2. Platelets 153. Sodium 132, potassium 4.3, CO2 of 27, BUN 38, and creatinine 7.09. Glucose 173 and calcium 8.4. He had a transesophageal echocardiogram done yesterday, which did not show any evidence of vegetations. He had a small patent forearm ovale. PROBLEMS: 1. End-stage renal disease. The patient was dialyzed yesterday, and his regular dialysis days are Tuesday, Tuesday and Tuesday. We will plan on dialyzing him again tomorrow. 2. Hyperkalemia. His hyperkalemia has corrected and resolved. He should remain on 2-gram potassium diet. No other intervention is indicated. 3. Hypertension. His blood pressure control has improved significantly, and we will continue with current antihypertensive medications. No changes are being made today. 4. Fever. His blood cultures have been reported negative so far, and repeat blood cultures are still pending. Transesophageal echocardiogram was done, which did not show any vegetations. CT scan of abdomen and pelvis was done a few days ago, and it did not show any abnormality. 5. Stroke and difficulty ambulating. He does have a patent forearm ovale with possibility of embolic stroke from his dialysis catheter. At this point, we will continue with physical rehabilitation. I have encouraged the patient to get arteriovenous (AV) fistula as soon as possible. He has been declining AV fistula so far. He needs to have some surgery on the tendons of his arms, and we will wait for it until his surgery gets done, and then he can get the fistula. In the meantime, he will remain on current medications, including aspirin. I will discuss with neurology about possibility for anticoagulation.
[2019-08-09 18:00] VITALS: BP 130/70
--- NOTE | 2019-08-09 18:02 | IPNPDOC ---
Date Seen The patient was seen on 08/09/19. Progress Note SUBJECTIVE: Patient's had no fevers overnight. Had EMILY, found to have PFO. Discussed with patient. OBJECTIVE PHYSICAL EXAMINATION: PHYSICAL EXAMINATION: VITAL SIGNS: Please see below. GENERAL: No distress, signal maintainer helper present HEENT: Normocephalic, atraumatic, moist mucous membranes NECK: Supple CARDIOVASCULAR EXAMINATION: S1, S2, no murmurs, dialysis catheter c/d/i on right chest RESPIRATORY EXAMINATION: CTAB ABDOMINAL EXAMINATION: Soft, nontender, nondistended, positive bowel sounds EXTREMITIES: no edema, petechiae on fingertips, no lunch or hemorrhages on finger or toenails SKIN: No rash PSYCHIATRIC EXAMINATION: Calm and cooperative, appropriate affect Assessment/Plan Assessment /Plan Assessment Patient is a 49-year-old male with past medical history of deafness, ESRD on HD presents with lightheadedness secondary to elevated blood pressure. Had HD on 08/06/2019, neurology consultation, potassium elevated greater than 6, and for HD. MRI head revealing acute left francisco infarct measuring 8 x 8 mm, did not qualify for TPA, neurology consult. #Suspicious for bacteremia secondary to dialysis port site: d/w ID consultation, 08/08 blood cultures neg, empirically treat patient with vancomycin 1 dose, and for administration through dialysis site, possible dc home tomorrow 08/10 #HTN: HD 08/06,08/07 (d/t hyperkalemia), and 08/08, continue home medication clonidine 0.3 mg daily, losartan 100 mg, Hydralazine 50 mg TID, will increase metoprolol tartrate 25mg BID, consider increase clonidine to 0.3 twice a day if blood pressure still greater than 180/110, although continue to monitor in ICU. Follow-up with neurology for BP management. #PFO: refer to Dr. Masters to explain procedure with possible referral to Dr. Jasen Ortega #hyperkalemia: resolved, monitor #ESRD on HD: HD 08/06, 08/07, 08/08 #CVA, acute infarct of the left francisco measuring 8 x 8 mm on MRI without contrast of the head, MRA of the head and neck reveals no acute abnormalities, CT head reveals old right basal ganglia lacunar infarct. Neurology consulted, Continue aspirin 325 daily, Crestor 10 mg daily, echo 08/06 reveals venous bradycardia with first-degree heart block, the 2 diastolic dysfunction with mildly elevated dysfunction, occult exam due to body habitus. EMILY, positive for PFO, will discuss with patient management, outpatient follow-up. #DM, insulin dependent: hold home insulin lantus 32U, cont ISS, diabetic diet #Obesity (BMI 33.9): supportive care #GERD: pantoprazole 40mg by mouth daily # HLD: cont rosuvastatin 40mg QHS DVT ppx- SCD, will avoid chemical ppx in view of accelerated HTN Full code Dispo 08/10 vs 08/11 VS, I&O, 24H, Fishbone Vital Signs/I&O Vital Signs Date Time Temp Pulse Resp B/P (MAP) Pulse Ox O2 Delivery O2 Flow Rate FiO2 08/09/19 17:17 155/95 08/09/19 14:00 98.6 74 18 96 Room Air 08/08/19 18:10 10 I&O- Last 24 Hours up to 6 AM 08/09/19 06:00 Intake Total 1330 ml Output Total 2500 ml Balance -1170 ml Laboratory Data 24H LABS Laboratory Tests 2 08/08/19 18:58: Bedside Glucose (Misc Panel) 169H 08/08/19 20:35: Bedside Glucose (Misc Panel) 167H 08/09/19 05:42: Nucleated Red Blood Cells % (auto) 0.0, Anion Gap 11, Glomerular Filtration Rate 8.9L, Calcium Level 8.4L 08/09/19 11:33: Bedside Glucose (Misc Panel) 227H CBC/BMP Laboratory Tests 08/09/19 05:42 Microbiology Microbiology 08/09/19 Blood Culture, Received Pending 08/09/19 Blood Culture, Received Pending 08/08/19 Blood Culture - Preliminary, Resulted Enterococcus Faecalis 08/08/19 Blood Culture - Preliminary, Resulted No growth after 24 hours . All specim... 08/08/19 Blood Culture - Preliminary, Resulted No growth after 24 hours . All specim... NICOLE FOSS MD Aug 09, 2019 18:02
[2019-08-09] MEDS ORDERED: VANCOMYCIN HCL 750 MG, VIAL MATE ADAPTER 1 EACH in D5W 250 ML IV SCH (19:00)
[2019-08-09] MEDS: ACETAMINOPHEN TAB 650MG DOSE (2X325MG) PO PRN (20:49)
[2019-08-09] MEDS: ROSUVASTATIN 10 MG TAB (CRESTOR) PO SCH (20:50)
[2019-08-09 22:00] VITALS: BP 168/70
[2019-08-10 06:00] VITALS: BP 160/86
[2019-08-10 06:20] LABS: HEMATOCRIT 35.6 % (42.0-52.0); HEMOGLOBIN 11.6 g/dl (13.5-17.5); MEAN CORPUSCULAR HEMOGLOBIN 29.7 pg (27.0-33.0); MEAN CORPUSCULAR HGB CONC 32.6 g/dl (32.0-36.5); PLATELET COUNT, AUTOMATED 137 10^3/uL (150-450); RED BLOOD COUNT 3.91 10^6/uL (4.30-6.10); WHITE BLOOD COUNT 9.3 10^3/uL (4.0-10.0)
[2019-08-10] MEDS: SUCROFERRIC OXYHYDROXIDE 500MG CHEW TAB (VELPHORO) PO SCH ×3 (06:23→18:06)
[2019-08-10] MEDS: PANTOPRAZOLE 40MG TAB (PROTONIX) PO SCH (06:23)
[2019-08-10] MEDS: ASPIRIN 325 MG TAB PO SCH (06:24)
[2019-08-10] MEDS: CYANOCOBALAMIN 500 MCG TAB PO SCH (06:24)
[2019-08-10] MEDS: SERTRALINE HCL 25 MG TABLET PO SCH (06:25)
[2019-08-10] MEDS: METOPROLOL TART 25 MG TABLET PO SCH ×2 (06:25→22:12)
[2019-08-10] MEDS: cloNIDine 0.1 MG TAB PO SCH (06:25)
[2019-08-10] MEDS: **hydrALAZINE** 50 MG TAB PO SCH ×3 (06:26→22:12)
[2019-08-10] MEDS: LOSARTAN 50 MG TAB PO SCH (06:26)
[2019-08-10] MEDS: ACETAMINOPHEN TAB 650MG DOSE (2X325MG) PO PRN ×3 (06:28→22:14)
[2019-08-10 06:49] LABS: C REACTIVE PROTEIN QUANTITATIV 10.2 MG/DL (0.00-0.30); CALCIUM LEVEL 8.7 MG/DL (8.5-10.1); CREATININE FOR GFR 9.02 MG/DL (0.70-1.30); GLOMERULAR FILTRATION RATE 6.7 (>60); POTASSIUM SERUM 4.7 MEQ/L (3.5-5.1); VANCOMYCIN RANDOM 12.8 UG/ML
[2019-08-10] MEDS: HumaLOG INSULIN (NovoLOG) PER UNIT SC SCH ×4 (08:12→21:00)
[2019-08-10] MEDS ORDERED: HEPARIN 1,000 UNITS/ML 10ML VIAL (FOR RADIOLOGY& DIALYSIS ONLY) XX ONE ×2 (11:00→18:00)
[2019-08-10] MEDS ORDERED: HEPARIN 1,000 UNITS/ML 10ML VIAL (FOR RADIOLOGY& DIALYSIS ONLY) IV ONE ×2 (11:00→18:00)
[2019-08-10 14:00] VITALS: BP 139/67
[2019-08-10] MEDS: **VANCO AFTER HD** MISC XX SCH (15:39)
[2019-08-10] MEDS ORDERED: VANCOMYCIN HCL 1,000 MG, VIAL MATE ADAPTER 1 EACH in D5W 250 ML IV SCH ×2 (18:00)
--- NOTE | 2019-08-10 20:09 | IPNPDOC ---
Date Seen The patient was seen on 08/10/19. Progress Note SUBJECTIVE: Patient's had no fevers overnight. Has HD 08/10/19. Discussed with infectious disease and nephrology, patient not meet criteria to remove port site, Enterococcus faecalis growth, we'll administer vancomycin via port, culture via port on 08/09/2019 reveals no growth in 24 hours. He did have an episode of headedness today, we'll need to follow up with physical therapy, possible rehabilitation, patient is okay with staying over the weekend. OBJECTIVE PHYSICAL EXAMINATION: VITAL SIGNS: Please see below. 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 HEENT: Normocephalic, atraumatic, moist mucous membranes NECK: Supple CARDIOVASCULAR EXAMINATION: S1, S2, no murmurs, dialysis catheter c/d/i on right chest RESPIRATORY EXAMINATION: CTAB ABDOMINAL EXAMINATION: Soft, nontender, nondistended, positive bowel sounds EXTREMITIES: no edema, petechiae on fingertips, no lunch or hemorrhages on finger or toenails SKIN: No rash PSYCHIATRIC EXAMINATION: Calm and cooperative, appropriate affect Assessment/Plan Assessment /Plan Assessment Patient is a 49-year-old male with past medical history of deafness, ESRD on HD presents with lightheadedness secondary to elevated blood pressure. Had HD on 08/06/2019, neurology consultation, potassium elevated greater than 6, and for HD. MRI head revealing acute left francisco infarct measuring 8 x 8 mm, did not qualify for TPA, neurology consult. #Suspicious for bacteremia secondary to dialysis port site: d/w ID consultation, initial port site grew enterococcus faecalis, however, repeat culture after antibiotic administration grew no growth, after vancomycin for 2 weeks, deconditioning, possibly secondary to ESRD. Blood pressure management #HTN: HD 08/06,08/07 (d/t hyperkalemia), 08/08, 08/10, continue home medication clonidine 0.3 mg daily, losartan 100 mg, Hydralazine 50 mg TID, will increase metoprolol tartrate 25mg BID, consider increase clonidine to 0.3 twice a day if blood pressure still greater than 180/110, although continue to monitor in ICU. Follow-up with neurology for BP management. #PFO: refer to Dr. Masters to explain procedure with possible referral to Dr. Jasen Ortega #ESRD on HD: HD 08/06, 08/07, 08/08, 08/10 #CVA, acute infarct of the left francisco measuring 8 x 8 mm on MRI without contrast of the head, MRA of the head and neck reveals no acute abnormalities, CT head reveals old right basal ganglia lacunar infarct. Neurology consulted, Continue aspirin 325 daily, Crestor 10 mg daily, echo 08/06 reveals venous bradycardia with first-degree heart block, the 2 diastolic dysfunction with mildly elevated dysfunction, occult exam due to body habitus. EMILY, positive for PFO, will discuss with patient management, outpatient follow-up. #DM, insulin dependent: hold home insulin lantus 32U, cont ISS, diabetic diet #Obesity (BMI 33.9): supportive care #GERD: pantoprazole 40mg by mouth daily # HLD: cont rosuvastatin 40mg QHS DVT ppx- SCD, will avoid chemical ppx in view of accelerated HTN Full code Dispo: Rehabilitation, follow-up with PT recommendations VS, I&O, 24H, Fishbone Vital Signs/I&O Vital Signs Date Time Temp Pulse Resp B/P (MAP) Pulse Ox O2 Delivery O2 Flow Rate FiO2 08/10/19 14:00 97.7 75 20 139/67 (91) 97 Room Air 08/08/19 18:10 10 I&O- Last 24 Hours up to 6 AM 08/10/19 06:00 Intake Total 1580 ml Output Total 1 ml Balance 1579 ml Laboratory Data 24H LABS Laboratory Tests 2 08/10/19 06:04: Nucleated Red Blood Cells % (auto) 0.0, Anion Gap 11, Glomerular Filtration Rate 6.7L, Calcium Level 8.7, C-Reactive Protein, Quantitative 10.20H, Random Vancomycin Level 12.8 08/10/19 14:25: Bedside Glucose (Misc Panel) 366H 08/10/19 16:48: Bedside Glucose (Misc Panel) 290H CBC/BMP Laboratory Tests 08/10/19 06:04 Microbiology Microbiology 08/10/19 Blood Culture, Received Pending 08/09/19 Blood Culture - Preliminary, Resulted No growth after 24 hours . All specim... 08/09/19 Blood Culture - Preliminary, Resulted No growth after 24 hours . All specim... 08/08/19 Blood Culture - Final, Complete Enterococcus Faecalis 08/08/19 Blood Culture - Preliminary, Resulted No Growth after 48 hours. All Specime... 08/08/19 Blood Culture - Preliminary, Resulted No Growth after 48 hours. All Specime... NICOLE FOSS MD Aug 10, 2019 20:09
--- NOTE | 2019-08-10 20:57 | CR ---
DATE OF CONSULTATION: 08/09/2019 CONSULTATION REPORT FOR: Dr. Sammie Ho REASON FOR CONSULTATION: Evaluation of fever in a patient with hemodialysis catheter, end-stage renal disease. HISTORY OF PRESENT ILLNESS: Mr. Morris is a 49-year-old gentleman with a history of end-stage renal disease on hemodialysis through a Perma-Cath in his right subclavian. The patient was initially admitted on 08/04/2019 with dizziness and uncontrolled hypertension. His blood pressure was 244/123. He had extra sessions of dialysis for diuresis with improvement in his blood pressure. Today, the patient states she does not have any more dizziness. No chest pain or shortness of breath. A couple days ago, he had a fever and blood cultures were obtained through his peripherally inserted central catheter (PICC) line as well as hemodialysis line and peripherally, and one out of three cultures was positive for Enterococcus faecalis. He was treated with a broad-spectrum antibiotic including IV vancomycin and meropenem and he has defervesced. His blood pressure has been better controlled since he has been on IV labetalol and nitroprusside. The patient is deaf and there is an senior asic engineer in the room at all times. PAST MEDICAL HISTORY: Significant for: 1. Hypertension, 2. End-stage renal disease on hemodialysis Tuesday, Tuesday, Tuesday. 3. Gastroesophageal reflux disease. 4. Obesity. 5. Diabetes, type 2. 6. Hyperlipidemia. 7. Deafness. FAMILY HISTORY: Father had a cerebrovascular accident (CVA). SOCIAL HISTORY: He lives with his and two children. He denies alcohol or tobacco use. REVIEW OF SYSTEMS: He has no nausea, vomiting or diarrhea. No cough or shortness of breath. No upper respiratory symptoms. He had a temperature of 101.2, but today temperature is 98.1, pulse 80, respirations 17, blood pressure 130/70, oxygen saturation 97% on room air. HEART: Normal S1, S2. No murmurs appreciated. LUNGS: Clear. No wheezes, rales or rhonchi. ABDOMEN: Soft, nontender. No hepatosplenomegaly. BACK: No costovertebral angle (CVA) or lumbosacral tenderness. EXTREMITIES: No lower extremity edema. Orellana catheter in the right subclavian, nontender to touch. No purulence. No redness. 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 He has a scar on the plantar aspect of the hand where the amputation was done and this was the site of previous ischemic injury to the right finger from steal phenomenon from arteriovenous (AV) fistula that has been ligated. LABORATORY DATA: White count is 9.4, hemoglobin 12.4, hematocrit 37.2, platelets 153. ESR 69. Sodium 132, potassium 4.3, chloride 94, bicarbonate 27, BUN 38, creatinine 7, glucose 173, calcium 8.4, CRP 6.73, total protein 7.3, albumin 3.1. Wound culture from the port was positive for E. faecalis on 08/08/2019 and blood cultures two sets peripherally were negative. Repeat cultures were done from the port on 08/09/2019. CT abdomen and pelvis done on 08/08/2019 showed cholelithiasis, status post gastric bypass with fairly extensive vascular calcification. No acute abdominal inflammatory abnormalities. Mild thickening of the urinary bladder. Chest x-ray showed no radiographic evidence of pulmonary process. Carotid MRI showed unremarkable MRA of the carotids. IMPRESSION: This is a 49-year-old gentleman who was admitted with dizziness from uncontrolled hypertension. Blood pressure has been controlled with IV labetalol, nitroprusside and diuresis through extra hemodialysis sessions. The patient's blood pressure has been better managed but he has developed a fever since he has been hospitalized, initially treated with meropenem and vancomycin. Blood cultures are consistent with a line infection from his Orellana catheter with one out of three sets of culture positive for Enterococcus (E) faecalis. PLAN: Continue treating with IV vancomycin. Discontinue meropenem. Consult with dialysis and see if we can treat him through his hemodialysis line after hemodialysis. Ideally, he should be treated through the line as this is most likely a line infection and is more chances of clearing the line if antibiotic will go through it. The patient will need to be treated with two weeks of IV vancomycin after hemodialysis. Repeat blood cultures need to be done at least 5-7 days after last dose of vancomycin to make sure there is no evidence of persistent infection. If Enterococcus (E) faecalis grows again on the line after a two-week treatment then the line will need to be removed. The patient is planning to have another arteriovenous (AV) fistula placed in his right arm but he is hoping that he could finish the hunting season first which would end on 08/23/2019.
[2019-08-10 22:00] VITALS: BP 160/90
[2019-08-10] MEDS: ROSUVASTATIN 10 MG TAB (CRESTOR) PO SCH (22:10)
[2019-08-11 06:00] VITALS: BP 144/70
[2019-08-11 06:27] LABS: HEMATOCRIT 33.7 % (42.0-52.0); HEMOGLOBIN 10.9 g/dl (13.5-17.5); MEAN CORPUSCULAR HEMOGLOBIN 29.7 pg (27.0-33.0); MEAN CORPUSCULAR HGB CONC 32.3 g/dl (32.0-36.5); MEAN CORPUSCULAR VOLUME 91.8 fl (80.0-96.0); PLATELET COUNT, AUTOMATED 147 10^3/uL (150-450); RED BLOOD COUNT 3.67 10^6/uL (4.30-6.10); WHITE BLOOD COUNT 10.7 10^3/uL (4.0-10.0)
[2019-08-11 06:49] LABS: CALCIUM LEVEL 8.7 MG/DL (8.5-10.1); CREATININE FOR GFR 7.37 MG/DL (0.70-1.30); GLOMERULAR FILTRATION RATE 8.5 (>60); POTASSIUM SERUM 4.5 MEQ/L (3.5-5.1)
--- NOTE | 2019-08-11 08:06 | IPNPDOC ---
Date Seen The patient was seen on 08/11/19. Progress Note SUBJECTIVE: Patient's had no fevers overnight, denies any lightheadedness. Spoke with nephrology, plan for dialysis on 08/12/2019 due to holiday schedule. We'll also touch base with physical therapy to determine rehabilitation versus home. If patient is doing well, plan to discharge home. Follow up as an outpatient. Biotics administration will be followed at hemodialysis. OBJECTIVE PHYSICAL EXAMINATION: VITAL SIGNS: Please see below. 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 HEENT: Normocephalic, atraumatic, moist mucous membranes NECK: Supple CARDIOVASCULAR EXAMINATION: S1, S2, no murmurs, dialysis catheter c/d/i on right chest RESPIRATORY EXAMINATION: CTAB ABDOMINAL EXAMINATION: Soft, nontender, nondistended, positive bowel sounds EXTREMITIES: no edema, petechiae on fingertips, no lunch or hemorrhages on finger or toenails SKIN: No rash PSYCHIATRIC EXAMINATION: Calm and cooperative, appropriate affect Assessment/Plan Assessment /Plan Assessment Patient is a 49-year-old male with past medical history of deafness, ESRD on HD presents with lightheadedness secondary to elevated blood pressure. Had HD on 08/06/2019, neurology consultation, potassium elevated greater than 6, and for HD. MRI head revealing acute left francisco infarct measuring 8 x 8 mm, did not qualify for TPA, neurology consult. #Lightheadedness: Likely secondary to cardiorenal balance, deconditioning, will need rehab. Plan to DC on Monday 08/13 to rehabilitation vs 08/12 home, will need f/u with PT. #Enterococcus faecalis in dialysis port site susceptible to Vanco: d/w ID continue 2 weeks of vanco, if repeat culture regrowth of organism, will need removal of catheter. #HTN: HD 08/06,08/07 (d/t hyperkalemia), 08/08, 08/10, continue home medication clonidine 0.3 mg daily, losartan 100 mg, Hydralazine 50 mg TID, will increase metoprolol tartrate 25mg BID, consider increase clonidine to 0.3 twice a day if blood pressure still greater than 180/110, although continue to monitor in ICU. Follow-up with neurology for BP management. #PFO: refer to Dr. Masters to explain procedure with possible referral to Dr. Jasen Ortega #ESRD on HD: HD 08/06, 08/07, 08/08, 08/10 #CVA, acute infarct of the left francisco measuring 8 x 8 mm on MRI without contrast of the head, MRA of the head and neck reveals no acute abnormalities, CT head reveals old right basal ganglia lacunar infarct. Neurology consulted, Continue aspirin 325 daily, Crestor 10 mg daily, echo 08/06 reveals venous bradycardia with first-degree heart block, the 2 diastolic dysfunction with mildly elevated dysfunction, occult exam due to body habitus. EMILY, positive for PFO, will discuss with patient management, outpatient follow-up. #DM, insulin dependent: hold home insulin lantus 32U, cont ISS, diabetic diet #Obesity (BMI 33.9): supportive care #GERD: pantoprazole 40mg by mouth daily # HLD: cont rosuvastatin 40mg QHS DVT ppx- SCD, will avoid chemical ppx in view of accelerated HTN Full code Dispo: Rehabilitation vs home, follow-up with PT recommendations VS, I&O, 24H, Fishbone Vital Signs/I&O Vital Signs Date Time Temp Pulse Resp B/P (MAP) Pulse Ox O2 Delivery O2 Flow Rate FiO2 08/11/19 06:00 97.9 77 18 144/70 (94) 96 Room Air 08/08/19 18:10 10 I&O- Last 24 Hours up to 6 AM 08/11/19 06:00 Intake Total 2236 ml Output Total 3100 ml Balance -864 ml Laboratory Data 24H LABS Laboratory Tests 2 08/10/19 14:25: Bedside Glucose (Misc Panel) 366H 08/10/19 16:48: Bedside Glucose (Misc Panel) 290H 08/10/19 21:29: Bedside Glucose (Misc Panel) 178H 08/11/19 06:00: Nucleated Red Blood Cells % (auto) 0.0, Anion Gap 11, Glomerular Filtration Rate 8.5L, Calcium Level 8.7 CBC/BMP Laboratory Tests 08/11/19 06:00 Microbiology Microbiology 08/11/19 Blood Culture, Received Pending 08/10/19 Blood Culture - Preliminary, Resulted No growth after 24 hours . All specim... 08/09/19 Blood Culture - Preliminary, Resulted No Growth after 48 hours. All Specime... 08/09/19 Blood Culture - Preliminary, Resulted 08/08/19 Blood Culture - Final, Complete Enterococcus Faecalis 08/08/19 Blood Culture - Preliminary, Resulted No Growth after 72 hours. All specime... 08/08/19 Blood Culture - Preliminary, Resulted No Growth after 72 hours. All specime... NICOLE FOSS MD Aug 11, 2019 08:06
[2019-08-11] MEDS: cloNIDine 0.1 MG TAB PO SCH (08:27)
[2019-08-11] MEDS: ASPIRIN 325 MG TAB PO SCH (08:27)
[2019-08-11] MEDS: SUCROFERRIC OXYHYDROXIDE 500MG CHEW TAB (VELPHORO) PO SCH ×3 (08:27→17:22)
[2019-08-11] MEDS: SERTRALINE HCL 25 MG TABLET PO SCH (08:28)
[2019-08-11] MEDS: LOSARTAN 50 MG TAB PO SCH (08:28)
[2019-08-11] MEDS: **hydrALAZINE** 50 MG TAB PO SCH ×3 (08:28→21:40)
[2019-08-11] MEDS: PANTOPRAZOLE 40MG TAB (PROTONIX) PO SCH (08:29)
[2019-08-11] MEDS: METOPROLOL TART 25 MG TABLET PO SCH ×2 (08:29→21:39)
[2019-08-11] MEDS: HumaLOG INSULIN (NovoLOG) PER UNIT SC SCH ×4 (08:29→21:40)
[2019-08-11] MEDS: CYANOCOBALAMIN 500 MCG TAB PO SCH (08:30)
--- NOTE | 2019-08-11 09:03 | IPN ---
DATE: 08/10/2019 Mr. Morris was seen during dialysis. He is doing well. He has no nausea, vomiting or diarrhea. He had a slight queasy stomach this morning but this is getting better. He denies any headache or dizziness. He is wondering why he cannot go home and whether he can walk around the floor to improve his strength. LABORATORY DATA: Blood cultures done on 08/09/2019 from the port were no growth after 24 hours and 08/10/2019 are still pending. Blood cultures from 08/09/2019, one out of three was positive for Enterococcus faecalis, only the one from the port. White count is 9.3, hemoglobin 11.6, hematocrit 35.6, platelets 137, sodium 133, potassium 4.7, chloride 97, BUN 58, creatinine 9, glucose 157, calcium 8.7, C-reactive protein 10.2. PHYSICAL EXAMINATION: Temperature is 97.7, pulse 75, respirations 20, blood pressure 139/67, oxygen sat 97% on room air. HEART: Normal S1, S2. No murmurs appreciated. LUNGS: Clear. No wheezes or rhonchi. ABDOMEN: Soft, nontender. No hepatosplenomegaly. EXTREMITIES: Left hand had amputation of the fourth finger index, healing well. There is a scab and dry skin on the palm of the hand but no infection. Lower extremities with no edema. He has a small ulceration on the left anterior vaz, which measures about 2 cm with yellowish discharge but no significant surrounding cellulitis. IMPRESSION: 1. Port-A-Cath infection with Enterococcus faecalis without peripheral bacteremia. The patient probably had a bacteremia causing the fever for 24 hours. He is doing much better on IV vancomycin. Meropenem was discontinued. Repeat cultures have been negative. 2. End-stage renal disease on hemodialysis through a Port-A-Cath in right upper chest. 3. History of steal syndrome from left AV fistula an ischemic injury to the left index finger, healed. PLAN: Continue IV vancomycin 500 mg through each port. If repeat cultures are negative in the next 48 hours, he can continue with vancomycin for 2 weeks during hemodialysis. Case has been discussed Dr. Dorado. If cultures come back positive after a couple doses, the catheter will be removed. Thank you for the consultation.
[2019-08-11 10:00] VITALS: BP 123/71
--- NOTE | 2019-08-11 12:46 | IPN ---
DATE: 08/11/2019 SUBJECTIVE: The patient was seen and examined at the bedside this morning. bricklayer helper was used to interact with the patient. He is awake and alert. He was dialyzed yesterday 3 liters of fluid was removed. He reports that his dizziness is slowly getting better. He was less dizzy this morning. Blood pressures were also better controlled. He continues to get IV antibiotics through the catheter for Enterococcus faecalis bacteremia. He denies any fevers and chills. OBJECTIVE: Vital signs: Temperature is 97.9 degrees Fahrenheit, blood pressure 144/70, pulse is 77, respiratory of 18, saturating 96% on room air. Intake and output: Ultrafiltration with hemodialysis was 3 liters yesterday. Weight on the bed scale was 121.1 mL yesterday. PHYSICAL EXAMINATION: GENERAL: The patient is awake, alert, oriented times three sitting up in the bed in no apparent distress. HEAD AND NECK EXAM: Extraocular muscles intact. Pupils equally round and reactive to light. Mucous membranes are moist. NECK: supple. There is no jugular venous distention (JVD). He has a right internal jugular (IJ) tunneled hemodialysis catheter. CARDIOVASCULAR: S1, S1, regular rate. No edema of the bilateral lower extremities. RESPIRATORY: Chest is clear to auscultation bilaterally. Bilateral equal air entry. No rales or rhonchi. ABDOMEN: Soft, obese, positive bowel sounds. MUSCULOSKELETAL: No clubbing or cyanosis. Left 5th and ring finger amputation site was noted. CENTRAL NERVOUS SYSTEM ([place]): No focal deficit apart from congenital deafness and he is mute and uses a sign language. LAB REVIEW: CBC showed a WBC of 10.7, hemoglobin 10.9, platelets are 147. BMP showed sodium 133, potassium 4.5, chloride 96, bicarb 26, BUN 47, creatinine is 7.3. Microbiology: Repeat blood cultures sent yesterday are negative. CURRENT INPATIENT MEDICATIONS: The patient's medications were all reviewed by me. He continues to be on vancomycin 1,000 mg IV with hemodialysis. No other change in the medications today as compared with yesterday. ASSESSMENT/PLAN: 1. End-stage renal disease on hemodialysis: The patient's regular dialysis days are Tuesday, Tuesday, Tuesday. Because of the holiday schedule, the patient will be dialyzed tomorrow morning. 2. Enterococcus faecalis bacteremia. The patient's culture was positive from the catheter. He is getting 500 mg from each port of the dialysis catheter. Repeat cultures are negative so far. 3. Hypertension with hypertensive heart disease and end-stage renal disease. Continue current dose of clonidine 0.3 mg by mouth daily, hydralazine 50 mg by mouth three times a day, losartan 100 mg daily and metoprolol 25 mg by mouth twice a day. 4. Recent pontine stroke: The patient is getting physical therapy. His dizziness is getting better. Blood pressure is better controlled. Continue current dose of aspirin 325 mg by mouth daily. Continue prior rosuvastatin 40 mg nightly. Blood pressure control is as mentioned above. DISPOSITION: The patient is optimized from nephrology standpoint to be discharged to the rehab unit.
--- NOTE | 2019-08-11 13:29 | IPN ---
DATE: 08/10/2019 Mr. Morris is seen this morning on his bedside during hemodialysis. He is feeling well and denies any new complaints. He still has problem with walking and keeping his balance due to recent stroke. There is no fever or chills at present. He denies any nausea, vomiting, dyspnea or chest pain. His blood pressure has been now mostly in 160s. He had one positive blood culture that was drawn on August 08 from his dialysis catheter site and it came back positive for Enterococcus faecalis. The patient has been on vancomycin and is currently afebrile. Most recent blood cultures drawn on the are negative so far. He had another blood culture drawn this morning. PHYSICAL EXAMINATION: Temperature 98.5 degrees Fahrenheit, heart rate 66 per minute and respiratory rate 18 per minute. Blood pressure 160/86 mmHg and oxygen saturation 97% on room air. His head is atraumatic. Neck is supple and without jugular venous distention (JVD) or thyroid enlargement. Ears, eyes, nose and throat are unremarkable. His right upper chest Perma-Cath is without any drainage or erythema. Heart sounds are regular and lungs clear to auscultation. Abdomen is soft and nontender and bowel sounds are normal. Extremities without any cyanosis or clubbing. His left hand wound is healing. He has a small ulcer on the tip of his third finger. His fourth finger is surgically absent on the left hand. Neurologically, he is at his baseline mentation and was able to communicate through the peoplesoft. LABORATORIES: Today's labs show WBC count 9.3, hemoglobin 11.6 and hematocrit 35.6. Platelets 137. Sodium 133, potassium 4.7, chloride 97, CO2 25, BUN 58 and creatinine 9.02. His C-reactive protein increased up to 10.20. PROBLEMS: 1. End-stage renal disease. The patient is being dialyzed today and is tolerating his dialysis treatment very well. 2. Hypertension. Blood pressure control has also improved with current medications and we will continue with the same. No changes are being made today. We hope that after dialysis and fluid removal of about 3 liters his blood pressure will improve further. 3. Fever and positive blood culture. He had one blood culture positive for Enterococcus faecalis. This blood culture was drawn from his dialysis line on Tuesday. He was given vancomycin after dialysis, and we will continue with vancomycin 1 gram after each dialysis. He will be given 500 mg through each port of his dialysis catheter today. 4. Hyponatremia, mild hyponatremia remains stable and likely to improve with dialysis today. No other intervention is indicated. 5. Anemia. His anemia is very mild and stable and does not need any intervention. 6. Recent stroke and difficulty ambulating. The patient is gradually improving with physical therapy. I feel that he will be ready for discharge within the next couple of days. He should not be discharged today as he is receiving dialysis and will receive antibiotic afterwards. I would like to watch him for at least 24 hours for any recurrence of fever due to catheter related infection.
[2019-08-11 14:00] VITALS: BP 125/72
[2019-08-11] MEDS: **VANCO AFTER HD** MISC XX SCH (16:00)
[2019-08-11 18:00] VITALS: BP 155/77
[2019-08-11] MEDS: ROSUVASTATIN 10 MG TAB (CRESTOR) PO SCH (21:39)
[2019-08-11 22:00] VITALS: BP 181/95
[2019-08-12] MEDS: SUCROFERRIC OXYHYDROXIDE 500MG CHEW TAB (VELPHORO) PO SCH ×2 (06:20→12:00)
[2019-08-12] MEDS: PANTOPRAZOLE 40MG TAB (PROTONIX) PO SCH (06:21)
[2019-08-12] MEDS: cloNIDine 0.1 MG TAB PO SCH (06:21)
[2019-08-12] MEDS: CYANOCOBALAMIN 500 MCG TAB PO SCH (06:21)
[2019-08-12] MEDS: ASPIRIN 325 MG TAB PO SCH (06:21)
[2019-08-12] MEDS: SERTRALINE HCL 25 MG TABLET PO SCH (06:21)
[2019-08-12] MEDS: **hydrALAZINE** 50 MG TAB PO SCH ×2 (06:22→16:06)
[2019-08-12] MEDS: LOSARTAN 50 MG TAB PO SCH (06:22)
[2019-08-12] MEDS: METOPROLOL TART 25 MG TABLET PO SCH (06:23)
[2019-08-12 06:45] LABS: HEMATOCRIT 33.2 % (42.0-52.0); HEMOGLOBIN 11.2 g/dl (13.5-17.5); MEAN CORPUSCULAR HEMOGLOBIN 30.2 pg (27.0-33.0); MEAN CORPUSCULAR HGB CONC 33.7 g/dl (32.0-36.5); MEAN CORPUSCULAR VOLUME 89.5 fl (80.0-96.0); PLATELET COUNT, AUTOMATED 167 10^3/uL (150-450); RED BLOOD COUNT 3.71 10^6/uL (4.30-6.10); WHITE BLOOD COUNT 11.6 10^3/uL (4.0-10.0)
[2019-08-12 07:18] LABS: CALCIUM LEVEL 8.7 MG/DL (8.5-10.1); CREATININE FOR GFR 9.7 MG/DL (0.70-1.30); GLOMERULAR FILTRATION RATE 6.2 (>60); POTASSIUM SERUM 4.9 MEQ/L (3.5-5.1)
[2019-08-12] MEDS: HumaLOG INSULIN (NovoLOG) PER UNIT SC SCH ×3 (07:55→16:22)
--- NOTE | 2019-08-12 08:22 | DS.PDOC ---
Discharge Summary General Date of Admission Aug 04, 2019 at 16:38 Date of Discharge 08/12/19 Discharge Summary PROCEDURES PERFORMED DURING STAY: Echo. ADMITTING DIAGNOSES: 1. LH. DISCHARGE DIAGNOSES: 1. LH, dialysis port infection. COMPLICATIONS/CHIEF COMPLAINT: Dizziness. HISTORY OF PRESENT ILLNESS &HOSPITAL COURSE: Patient is a 49-year-old male with past medical history of deafness, ESRD on HD presents with lightheadedness secondary to elevated blood pressure. Had HD on 08/06/2019, neurology consultation, potassium elevated greater than 6, and for HD. MRI head revealing acute left francisco infarct measuring 8 x 8 mm, did not qualify for TPA, and CT head reveals old right basal ganglia lacunar infarct. Neurology was consulted and recommended to continue aspirin 325 daily, Crestor 10 mg daily. Echo 08/06 reveals venous bradycardia with first-degree heart block, diastolic dysfunction with mildly elevated dysfunction, occult exam due to body habitus and recommendations for EMILY which revealed PFO and recommendations for outpt follow- up: refer to Dr. Masters to explain procedure with possible referral to Dr. Jasen Ortega. His lightheadedness with thought to be likely secondary to cardiorenal balance vs CVA, deconditioning, with plan for rehab. Nephrology was consulted and he received HD 08/06, 08/07 (due to Hyperkalemia), 08/08, 08/10, 08/12 (due to holiday schedule). Pt had episodes of fever during hospitalization, Blood cx were neg, however Blood cx via port grew Enterococcus faecalis, sensitive to Vanco. ID was consulted and recommendations 2 weeks of vanco via port with recommendations to remove port if sx worsened or regrowth of organism. Repeat port cx was neg. Patient was able to ambulate up stairs without difficulty, educated patient to ambulate slowly to prevent lightheadedness, and with caution, use walker. Will discharge home with follow- up with primary care and 1-2 weeks, follow-up with cardiology for evaluation of PFO repair, follow-up with neurology for CVA, and follow-up with nephrology for hemodialysis with vancomycin dosing 2 weeks. All questions were answered. DISCHARGE MEDICATIONS: Please see below. ALLERGIES: Please see below. PHYSICAL EXAMINATION ON DISCHARGE: VITAL SIGNS: Please see below. GENERAL: No distress, student life vice president present HEENT: Normocephalic, atraumatic, moist mucous membranes NECK: Supple CARDIOVASCULAR EXAMINATION: S1, S2, dialysis catheter c/d/i on right chest RESPIRATORY EXAMINATION: CTAB ABDOMINAL EXAMINATION: Soft, nontender, nondistended, positive bowel sounds EXTREMITIES: no edema, petechiae on fingertips, no lunch or hemorrhages on finger or toenails SKIN: No rash PSYCHIATRIC EXAMINATION: Calm and cooperative, appropriate affect LABORATORY DATA: Please see below. IMAGING: see H&P PROGNOSIS: good ACTIVITY: As tolerated. DIET: heart healthy,w eight loss DISCHARGE PLAN: home DISPOSITION: home DISCHARGE INSTRUCTIONS: 1. see above. ITEMS TO FOLLOWUP ON ON OUTPATIENT: 1. see above. DISCHARGE CONDITION: Stable. TIME SPENT ON DISCHARGE: 35 minutes. Vital Signs/I&Os Vital Signs Date Time Temp Pulse Resp B/P (MAP) Pulse Ox O2 Delivery O2 Flow Rate FiO2 08/12/19 06:23 65 148/92 08/11/19 22:00 98.9 17 97 Room Air 08/08/19 18:10 10 I&O- Last 24 Hours up to 6 AM 08/12/19 06:00 Intake Total 1230 ml Output Total 0 ml Balance 1230 ml Laboratory Data Labs 24H Laboratory Tests 2 08/11/19 10:09: Bedside Glucose (Misc Panel) 235H 08/11/19 11:33: Bedside Glucose (Misc Panel) 180H 08/11/19 16:44: Bedside Glucose (Misc Panel) 180H 08/11/19 20:41: Bedside Glucose (Misc Panel) 265H 08/12/19 06:30: Nucleated Red Blood Cells % (auto) 0.0, Anion Gap 11, Glomerular Filtration Rate 6.2L, Calcium Level 8.7 CBC/BMP Laboratory Tests 08/12/19 06:30 FSBS Laboratory Tests Test 08/11/19 10:09 08/11/19 11:33 08/11/19 16:44 08/11/19 20:41 Range/Units Bedside Glucose (Misc Panel) 235 180 180 265 70-105 MG/DL Microbiology Microbiology 08/11/19 Blood Culture - Preliminary, Resulted No growth after 24 hours . All specim... 08/10/19 Blood Culture - Preliminary, Resulted No Growth after 48 hours. All Specime... 08/09/19 Blood Culture - Preliminary, Resulted No Growth after 72 hours. All specime... 08/09/19 Blood Culture - Final, Complete Enterococcus Faecalis 08/08/19 Blood Culture - Final, Complete Enterococcus Faecalis 08/08/19 Blood Culture - Preliminary, Resulted No Growth after 72 hours. All specime... 08/08/19 Blood Culture - Preliminary, Resulted No Growth after 72 hours. All specime... Discharge Medications Scheduled Aspirin (Aspirin) 325 Mg Tablet, 325 MG PO DAILY Cholecalciferol (Vitamin D3) (Vitamin D3) 5,000 Unit Capsule, 5,000 UNIT PO 2XW, (Reported) TUESDAY AND TUESDAY MORNING Clonidine HCl (Clonidine HCl) 0.1 Mg Tablet, 0.3 MG PO DAILY, (Reported) Cyanocobalamin (Vitamin B-12) (Vitamin B-12) 500 Mcg Tablet, 500 MCG PO DAILY, (Reported) Folic Acid/Vit B Complex and C (Natasha-Rajiv Tablet) 0.8 Mg Tablet, 1 TAB PO DAILY, (Reported) Glipizide (Glipizide) 10 Mg Tablet, 20 MG PO BID, (Reported) Hydralazine HCl (Hydralazine HCl) 50 Mg Tablet, 50 MG PO TID, (Reported) Insulin Detemir (Levemir Flextouch) 100 Unit/1 Ml Insuln.pen, 32 UNITS SC BID, (Reported) Insulin Human Lispro (Novolog) 100 Unit/1 Ml Vial, 1 DOSE SC AC, (Reported) 26 UNITS + SLIDING SCALE Losartan Potassium (Losartan Potassium) 100 Mg Tablet, 100 MG PO DAILY, (Reported) Metoprolol Tartrate (Metoprolol Tartrate) 25 Mg Tablet, 25 MG PO BID, (Reported) Pantoprazole Sodium (Pantoprazole Sodium) 40 Mg Tablet.dr, 40 MG PO DAILY, (Reported) Rosuvastatin Calcium (Crestor) 10 Mg Tablet, 10 MG PO QPM, (Reported) TAKES AT DINNERTIME Sertraline Hcl (Sertraline HCl) 25 Mg Tablet, 25 MG PO DAILY, (Reported) Sucroferric Oxyhydroxide (Velphoro) 500 Mg Tab.chew, 2 TAB PO AC, (Reported) Allergies Coded Allergies: Penicillins (Verified Allergy, Unknown, 01/29/19) bacitracin (Verified Allergy, Unknown, 01/29/19) neomycin (Verified Allergy, Unknown, 01/29/19) polymyxin B (Verified Allergy, Unknown, 01/29/19) NICOLE FOSS MD Aug 12, 2019 08:22
[2019-08-12] MEDS ORDERED: HEPARIN 1,000 UNITS/ML 10ML VIAL (FOR RADIOLOGY& DIALYSIS ONLY) IV ONE (12:00)
[2019-08-12] MEDS ORDERED: HEPARIN 1,000 UNITS/ML 10ML VIAL (FOR RADIOLOGY& DIALYSIS ONLY) XX ONE (12:00)
[2019-08-12 15:45] VITALS: BP 122/60
[2019-08-12] MEDS: **VANCO AFTER HD** MISC XX SCH (16:00)
[2019-08-12] MEDS ORDERED: ASPI-1 PO (16:05)
[2019-08-12 16:06] VITALS: BP 122/60
[2019-08-12 17:15] VITALS: BP 122/60
--- NOTE | 2019-08-12 19:25 | IPN ---
DATE: 08/12/2019 SUBJECTIVE: The patient was seen and examined on the bedside today morning during hemodialysis procedure. He is tolerating the hemodialysis procedure well. He denies any active complaints. He is afebrile and hemodynamically stable. Blood pressure is very well controlled now. OBJECTIVE: Vital signs: Temperature is 98.9 degrees Fahrenheit, blood pressure 148/92, pulse is 65, respiratory of 17, saturating 97% on room air. Intake and output: There is no urine output recorded. Weight in the bed scale is not available. PHYSICAL EXAMINATION: General: The patient is awake and alert, laying in the bed getting hemodialysis done. Head and neck exam: Extraocular muscles intact. Pupils equally round and reactive to light. Mucous membranes are moist. Neck is supple. There is no JVD. Cardiovascular: S1, S2 regular rate. No edema of the bilateral lower extremities. Respiratory: Chest is clear to auscultation bilaterally. Bilateral equal air entry. No rales or rhonchi. He has a right IJ tunneled hemodialysis catheter which is being used for dialysis. Abdomen: Soft, positive bowel sounds. Nontender. Musculoskeletal: No clubbing or cyanosis. SUPERVISOR ROLLING ROOM: The patient is congenitally deaf and mute. He uses sign language for communication, otherwise no focal deficit. LABORATORY REVIEW: Complete blood count (CBC) showed a WBC 11.6, hemoglobin 11.2, platelets of 167. BMP showed sodium 133, potassium 4.9, chloride 96, bicarb 26, BUN 69, creatinine is 9.7, calcium 8.7. CURRENT INPATIENT MEDICATIONS: The patient's medications were all reviewed by me. There is no change in the medications today as compared with yesterday. ASSESSMENT/PLAN: 1. End-stage renal disease on hemodialysis. The patient's regular dialysis days are Tuesday, Tuesday, Tuesday. He is being dialyzed because of the holiday schedule today. Ultrafiltration goal is around 3 liters. 2. Enterococcus faecalis bacteremia. Continue vancomycin 500 mg through each port in the dialysis catheter after each dialysis. 3. Hypertension with hypertensive heart disease and end-stage renal disease. Continue current dose of clonidine, hydralazine, losartan and metoprolol. 4. Pontine stroke. The patient is getting physical therapy. He reports his dizziness is getting better. He is able to walk with the physical therapy (PT) now and primary team is planning to discharge him to the rehab. [facility]
== END 2019-08-12 17:37 | disposition home or self-care (01) | DRG 314 ==
LOC: M ED 14:11 → M ED INP 16:38 → M ICU 19:12 → M MSPAV 08-07 18:08
PROVIDERS: ADMIT Internal Medicine; ATTEND Family Medicine
PROC: 5A1D70Z Performance of Urinary Filtration, Intermittent, Less than 6 Hours Per Day (ICD-10-PCS; principal; 2019-08-06)
PROC: B246ZZ4 Ultrasonography of Right and Left Heart, Transesophageal (ICD-10-PCS; 2019-08-08)
DX: T82.7XXA Infection and inflammatory reaction due to other cardiac and vascular devices, implants and grafts, initial encounter (principal); N18.6 End stage renal disease; I63.412 Cerebral infarction due to embolism of left middle cerebral artery; I12.0 Hypertensive chronic kidney disease with stage 5 chronic kidney disease or end stage renal disease; N25.81 Secondary hyperparathyroidism of renal origin; Q21.1 Atrial septal defect; R42 Dizziness and giddiness; Z99.2 Dependence on renal dialysis; I44.0 Atrioventricular block, first degree; E66.9 Obesity, unspecified; E83.39 Other disorders of phosphorus metabolism; E11.22 Type 2 diabetes mellitus with diabetic chronic kidney disease; E78.5 Hyperlipidemia, unspecified; I16.0 Hypertensive urgency; K21.9 Gastro-esophageal reflux disease without esophagitis; E87.5 Hyperkalemia; H91.3 Deaf nonspeaking, not elsewhere classified; D63.1 Anemia in chronic kidney disease; Y83.1 Surgical operation with implant of artificial internal device as the cause of abnormal reaction of the patient, or of later complication, without mention of misadventure at the time of the procedure; E11.51 Type 2 diabetes mellitus with diabetic peripheral angiopathy without gangrene; Z79.4 Long term (current) use of insulin; Z79.899 Other long term (current) drug therapy; Z88.0 Allergy status to penicillin; Z88.1 Allergy status to other antibiotic agents; Z68.33 Body mass index [BMI] 33.0-33.9, adult; Z91.11 Patient's noncompliance with dietary regimen

== ENCOUNTER → 2019-10-03 | Outpatient (CLI) | payer MEDICARE, BC ==
[~2019-10-03] MED LIST changes: +ASPI-1 PO; +HYDR-3911 PO
--- NOTE | 2019-10-03 09:35 | REP ---
BILATERAL UPPER EXTREMITY DUPLEX DOPPLER ARTERIAL AND VENOUS ULTRASOUND: Real-time ultrasound evaluation and duplex Doppler interrogation of bilateral upper extremity arterial venous system is performed for arteriovenous fistula mapping. No deep vein thrombosis is seen bilaterally. On the right, the basilic vein measures 4 mm at the level of the humerus and 1 mm in the forearm. Median cubital vein measures 2 mm. Right cephalic vein measures 3 mm at the upper humerus, 4 mm at the lower humerus, 2 mm in the upper forearm and 1 mm in the lower forearm. Normal flow velocities and triphasic waveforms are seen in the right upper extremity arterial structures. Right axillary aorta measures 7 mm, brachial artery 5 mm, radial artery 3 mm and ulnar artery 5 mm. On the left, the basilic measures 2 mm at the upper humerus and 1 mm at the lower humerus. In the forearm, it measures 1 mm. Median cubital vein measures 1 mm. Left cephalic vein measures 3 mm at the level of the humerus, 2 mm in the upper forearm and 3 mm in the lower forearm. Left upper extremity arterial structures demonstrate normal flow velocities and triphasic waveforms. Left axillary artery measures 7 mm, brachial artery 5 mm, radial artery 3 mm and ulnar artery 4 mm. Electronically Signed by Sg Cabral MD 10/03/2019 05:34 P
== END ==
LOC: M RAD 07:22
PROVIDERS: ATTEND Surgery
DX: Z01.818 Encounter for other preprocedural examination (principal); N18.6 End stage renal disease